=== PATIENT | male | born 1955 | race Caucasian/White ===

== ENCOUNTER 2023-11-19 13:00 | Outpatient (AMB) | payer BC, SELFPAY ==
[2023-11-19 13:22] VITALS: PULSE 89; O2SAT 87; BMI 55.6
--- NOTE | 2023-11-19 13:22 | MHC.OFFVIS ---
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 The patient is a 68-year-old gentleman with a known history of COPD, chronic respiratory failure on oxygen between 3-6 L via nasal cannula, obstructive sleep apnea, morbid obesity in atrial fibrillation on anticoagulation. The patient is here for evaluation of worsening dyspnea symptoms. He complains of shortness of breath even with minimal activity. The oxygen has been helpful. He is inhalers include Ventolin. He was offered maintenance inhalers in the past but he opted not using them because of the concerns of adverse effects. We did review his PFTs that he had back in 09/2022. It appears that he has a moderate to severe obstructive process. He also did have a trend response to bronchodilators. Therefore, explained to the patient that maintenance inhalers will provide him with some relief. We can try a long-acting combination bronchodilator without a steroid to minimize his concerns. In addition to that based on the significant dyspnea symptoms we did discuss pulmonary rehabilitation. The patient is open to starting pulmonary rehab but ideally at [facility] because that is where he is from. The patient also had a chest x-ray done back in 09/2022 which was personally by me. It appears that he had a very pronounced bilateral hilum suggesting dilation of the pulmonary vessels. This is suspicious for pulmonary hypertension. He did have an echocardiogram about a year ago per the patient but this was done at [facility] and we do not have that result. We did evaluate a CTA from 2016 demonstrating indeed dilation of the pulmonary trunk suggesting pulmonary hypertension. Explained to the patient that likely his pulmonary hypertension is based on a WHO group 2 and 3 based on his cardiac and pulmonary disease. The patient did have a CTA back in 2015 that was negative for any thromboembolic disease and yet still had the evidence of the pulmonary hypertension. He does use CPAP at nighttime. The CPAP therapy has been affecting beneficial and he does use it for more than 4 hours a night. He does sometimes use his nasal cannula along with the CPAP for additional relief. He does get oxygen through [facility]. He has requesting a filling station. He is also wondering about a portable oxygen concentrator. During the visit we did do 6 minute walk test. The patient is limited due to his heart rate in his shortness of breath. Still he needed 4 L of oxygen with activity to maintain a pulse ox above 90%. Therefore, the patient does not qualify for portable oxygen concentrator he is aware of this. In addition, I am not sure if a filling station is able to be provided for that degree of oxygen requirement. But, we can ask. The patient will on-call for blood work today including a venous gas to see what his CO2 is. With chronic respiratory failure and COPD, if the CO2 is elevated he carries a poor prognosis and high risk for hospitalization. If his CO2 is elevated then we will see about a noninvasive ventilator to improve his prognosis, decrease hospitalizations and also improve his gas exchange. [facility] Medical History (Updated 11/19/23 @ 19:39 by Dio Orantes MD) Pulmonary hypertension PARRIS (obstructive sleep apnea) Chronic respiratory failure COPD (chronic obstructive pulmonary disease) Allergy Social History (Updated 11/19/23 @ 13:29 by TERENCE Ojeda) Patient Tobacco Use Status: Former Tobacco user Tobacco use type: Cigarette Review of Systems Const Denies fever(s) Eyes Reports no additional complaints ENT Reports nasal congestion Card Denies chest pain, Reports dyspnea and Reports dyspnea on exertion Resp Reports cough, Reports dyspnea, Reports dyspnea on exertion and Denies wheezing GI Reports no additional complaints Musc Reports abnormal gait and Reports myalgias Skin/Breast Denies rash Neuro Reports abnormal gait Cesario/Lymph Denies lymphadenopathy Aller/Immun Denies wheezing Physical Exam Vital Signs: Last Vital Signs Pulse 89 11/19/23 13:22 Pulse Ox 87 L 11/19/23 13:22 Oxygen Delivery Method Room Air 11/19/23 13:22 BMI result Body Mass Index 55.6 Const General: comfortable Nutritional Appearance: obese HEENT Head: Yes normocephalic Neck Neck: Yes supple Chest Chest palpation & inspection: normal inspection of the chest Resp Effort & Inspection: normal respiratory effort Auscultation: diminished lung sounds Cardio Heart sounds: S1 normal heart sound present and S2 normal heart sound present GI Palpation (GI): Soft to palpation Skin General skin exam: no rashes or lesions noted Extrem General: No cyanosis Office Procedures 6 Minute Walk Time:: 14:00 SPO2 % at rest: 89 Pulse at rest: 70 SPO2 % during excercise: 86 Pulse during excercise: 158 SPO2 % after excercise: 91 Pulse after excercise: 72 Distance in yards walked: 80 Serina Score: 5 Performance Observations:: Alan walked on level ground without assistance, his SPO2 decreased to 86% within a few steps. Pulsed O2 started on setting 2 then increased to 3 his SPO2 did not recover. Continuous O2 started and 4 lpm maintained his SPO2 at 90-91%. HR to 158 with exertion and with rest his HR recovered to 98 MD tyrone. [id number] - 6 Minute Walk Assessment & Plan Assessment & Plan (1) COPD (chronic obstructive pulmonary disease): Code(s): J44.9 - Chronic obstructive pulmonary disease, unspecified Qualifiers: COPD type: chronic bronchitis Chronic bronchitis type: simple Qualified Code(s): J41.0 - Simple chronic bronchitis (2) Allergy: Code(s): T78.40XA - Allergy, unspecified, initial encounter Qualifiers: Encounter type: initial encounter Qualified Code(s): T78.40XA - Allergy, unspecified, initial encounter (3) Chronic respiratory failure: Code(s): J96.10 - Chronic respiratory failure, unspecified whether with hypoxia or hypercapnia Qualifiers: Respiratory failure complication: hypoxia Qualified Code(s): J96.11 - Chronic respiratory failure with hypoxia (4) PARRIS (obstructive sleep apnea): Code(s): G47.33 - Obstructive sleep apnea (adult) (pediatric) (5) Pulmonary hypertension: Code(s): I27.20 - Pulmonary hypertension, unspecified Plan Start Anoro PAWAN as needed Bloodwork/allergy testing/blood gas start Pulmonary rehab at [place] continue oxygen 2L at rest, 4L with activity continue CPAP with 2L oxygen at night. Consider in lab titration study ?IVAPS diuresis as tolerated requesting last ECHO from [facility] F/U 6-8 weeks Orders: Orders Basic Metabolic Panel Today T78.40XA - Allergy, unspecified, initial encounter Erythrocyte Sedimentation Rate Today T78.40XA - Allergy, unspecified, initial encounter Resp Allergy Profile Region I Today T78.40XA - Allergy, unspecified, initial encounter Venous Blood Gas Today T78.40XA - Allergy, unspecified, initial encounter Complete Blood Count Auto Diff Today T78.40XA - Allergy, unspecified, initial encounter AMB 6 minute walk Today J44.9 - Chronic obstructive pulmonary disease, unspecified Pulmonary Rehab Today J44.9 - Chronic obstructive pulmonary disease, unspecified Medications: New umeclidinium-vilanterol 62.5-25 mcg/actuation (Anoro Ellipta) 1 inh inhalation DAILY 60 ea 11RF J44.89 - Other specified chronic obstructive pulmonary disease Coding Level of Care Code New Pt Level 5 (34439) Diagnoses Simple chronic bronchitis J41.0 COPD type: chronic bronchitis Chronic bronchitis type: simple Allergy, initial encounter T78.40XA Encounter type: initial encounter Chronic respiratory failure with hypoxia J96.11 Respiratory failure complication: hypoxia PARRIS (obstructive sleep apnea) G47.33 Pulmonary hypertension I27.20 CPT Codes Coding ([id number]) Time Spent (min) 60
[2023-11-19 14:23] VITALS: PULSE 70; O2SAT 89
== END 2023-11-19 14:51 | disposition home or self-care (01) ==
PROVIDERS: PCP Family Medicine; Referring Provider Family Medicine; Visit Provider Hospitalist
DX: J41.0 Simple chronic bronchitis (principal); J96.11 Chronic respiratory failure with hypoxia; G47.33 Obstructive sleep apnea (adult) (pediatric); I27.20 Pulmonary hypertension, unspecified
CPT/HCPCS: 94618; 99205

== ENCOUNTER 2023-11-19 13:00 | Outpatient (REF) | payer MEDICARE, SELFPAY ==
[2023-11-19 14:34] LABS: MANUAL DIFF FLAG NO
[2023-11-19 14:46] LABS: VBG Base Excess 4.4 mmol/L; VBG pCO2 47 mmHg; VBG pO2 35 mmHg
[2023-11-19 14:47] LABS: VBG HCO3 30 mmol/L (22-26); Venous Blood Gas Refer to POC result
[2023-11-19 14:51] LABS: Basophils Percent Auto 0.5 % (0-2); Eosinophils Absolute Auto 0.1 X10*3/uL (0.0-0.4); Hematocrit 44.5 % (42.0-52.0); Hemoglobin 14.6 g/dl (14.0-18.0); Imm Gran Abs Auto 0.02 X10*3/uL (0.00-0.03); Imm Gran Pct Auto 0.2 % (0.0-0.4); Lymphocytes Percent Auto 11.9 % (20-40); Mean Corpuscular HGB Conc 32.8 g/dl (31.0-36.0); Mean Corpuscular Hemoglobin 31.5 pg (27.0-33.0); Mean Corpuscular Volume 95.9 fL (80.0-98.0); Mean Platelet Volume 9.3 fL (9.4-12.4); Monocytes Absolute Auto 0.5 X10*3/uL (0.1-1.2); Monocytes Percent Auto 6.4 % (2-11); Neutrophils Absolute Auto 6.5 x10*3/uL (2.0-8.3); Platelet Count 214 X10*3/uL (160-400); Red Blood Count 4.64 X10*6/uL (4.60-5.80); Red Cell Distribution Width 13.3 % (11.0-16.0); White Blood Count 8.1 X10*3/uL (4.8-10.8)
[2023-11-19 14:52] LABS: Anion Gap 13 (12-20); Blood Urea Nitrogen 24 mg/dL (9-16); Calcium 9.8 mg/dL (8.4-10.2); Carbon Dioxide 30 mmol/L (22-29); Chloride 102 mmol/L (96-108); Estimated Glomerular Filt Rate 57; Glucose Random 95 mg/dL (60-115); Potassium 4.6 mmol/L (3.3-5.1); Sodium 140 mmol/L (135-145)
[2023-11-19 15:32] LABS: Erythrocyte Sedimentation Rate 16 MM/HR (0-15)
== END 2023-11-19 13:01 | disposition home or self-care (01) ==
LOC: HO.LAB 13:00
PROVIDERS: PCP Family Medicine; Referring Provider Family Medicine; Visit Provider Hospitalist
DX: J41.0 Simple chronic bronchitis (principal); J96.11 Chronic respiratory failure with hypoxia; T78.40XA Allergy, unspecified, initial encounter; G47.33 Obstructive sleep apnea (adult) (pediatric); I27.20 Pulmonary hypertension, unspecified
CPT/HCPCS: 36415; 80048; 82803; 85025; 85652; 94618; 99202

== ENCOUNTER 2024-02-26 08:39 | Outpatient (AMB) | payer MEDICARE, SELFPAY ==
[2024-02-26 08:51] VITALS: PULSE 64; O2SAT 90; BMI 55.7
--- NOTE | 2024-02-26 08:51 | A.OFFVIS_ITS ---
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 The patient is here for evaluation of worsening dyspnea symptoms. He complains of shortness of breath even with minimal activity. The oxygen has been helpful. He is inhalers include Ventolin. He was offered maintenance inhalers in the past but he opted not using them because of the concerns of adverse effects. We did review his PFTs that he had back in 09/2022. It appears that he has a moderate to severe obstructive process. He also did have a trend response to bronchodilators. Th erefore, explained to the patient that maintenance inhalers will provide him with some relief. We can try a long-acting combination bronchodilator without a steroid to minimize his concerns. In addition to that based on the significant dyspnea symptoms we did discuss pulmonary rehabilitation. The patient is open to starting pulmonary rehab but ideally at [facility] because that is where he is from. The patient also had a chest x-ray done back in 09/2022 which was personally by me. It appears that he had a very pronounced bilateral hilum suggesting dilation of the pulmonary vessels. This is suspicious for pulmonary hypertension. He did have an echocardiogram about a year ago per the patient but this was done at [facility] and we do not have that result. We did evaluate a CTA from 2016 demonstrating indeed dilation of the pulmonary trunk suggesting pulmonary hypertension. Explained to the patient that likely his pulmonary hypertension is based on a WHO group 2 and 3 based on his cardiac and pulmonary disease. The patient did have a CTA back in 2015 that was negative for any thromboembolic disease and yet still had the evidence of the pulmonary hypertension. He does use CPAP at nighttime. The CPAP therapy has been affecting beneficial and he does use it for more than 4 hours a night. He does sometimes use his nasal cannula along with the CPAP for additional relief. He does get oxygen through [facility]. He has requesting a filling station. He is also wondering about a portable oxygen concentrator. During the visit we did do 6 minute walk test. The patient is limited due to his heart rate in his shortness of breath. Still he needed 4 L of oxygen with activity to maintain a pulse ox above 90%. Therefore, the patient does not qualify for portable oxygen concentrator he is aware of this. In addition, I am not sure if a filling station is able to be provided for that degree of oxygen requirement. But, we can ask. The patient will on-call for blood work today including a venous gas to see what his CO2 is. With chronic respiratory failure and COPD, if the CO2 is elevated he carries a poor prognosis and high risk for hospitalization. If his CO2 is elevated then we will see about a noninvasive ventilator to improve his prognosis, decrease hospitalizations and also improve his gas exchange. 02/26/2024 the patient is here for a pulmonary follow-up visit. Since we last spoke he is developing worsening shortness of breath and oxygen requirements. He has been at the pulmonary rehabilitation and they have documented that he is more hypoxic and recommended he had a repeat 6 minute walk test. Typically he requires 4 L with activity although he has been going up to 6 L. this is been getting worse for last couple days. He is having hard time doing any activity even at rest. He has been using his respiratory therapy with minimal response. He also is taking diuretics. The patient continues uses CPAP at nighttime. The CPAP therapy has been affecting beneficial. We did check a blood gas during the last visit and had a slight elevation in his CO2 47 mmHg. The patient still waiting for his sleep study. We did requested. Still waiting for insurance authorization. During the visit we did taken for 6 minute walk test. Again, the patient was placed on 4 L at rest maintaining a 90% but then with ambulation he required the maximum 8 L and still desaturating very quickly to 87%. He was also visibly dyspneic with a dyspnea score of 7/10. Denies any chest pain at this time. In view of the worsening hypoxia I did recommend he go to the ER. We did send to the ER for further care. [facility] Medical History (Updated 11/19/23 @ 19:39 by Dio Orantes MD) Pulmonary hypertension PARRIS (obstructive sleep apnea) Chronic respiratory failure COPD (chronic obstructive pulmonary disease) Allergy Social History (Updated 11/19/23 @ 13:29 by TERENCE Ojeda) Patient Tobacco Use Status: Former Tobacco user Tobacco use type: Cigarette Advance Directives: Yes Advance Directives on File: Yes Advance Directives Date on File: 02/26/24 Do you have a plan to hurt others: No Plan Review of Systems Const Denies fever(s) Eyes Reports no additional complaints ENT Reports nasal congestion Card Denies chest pain, Reports leg edema, Reports dyspnea and Reports dyspnea on exertion Resp Reports cough, Reports dyspnea, Reports dyspnea on exertion and Denies wheezing GI Reports no additional complaints Musc Reports abnormal gait and Reports myalgias Skin/Breast Denies rash Neuro Reports abnormal gait Cesario/Lymph Denies lymphadenopathy Aller/Immun Denies wheezing Physical Exam Vital Signs: Last Vital Signs Pulse 64 02/26/24 08:51 Pulse Ox 90 L 02/26/24 08:51 Oxygen Delivery Method Room Air 02/26/24 08:51 BMI result Body Mass Index 55.7 Const General: comfortable Nutritional Appearance: obese HEENT Head: Yes normocephalic Neck Neck: Yes supple Chest Chest palpation & inspection: normal inspection of the chest Resp Effort & Inspection: normal respiratory effort Auscultation: diminished lung sounds Cardio Heart sounds: S1 normal heart sound present and S2 normal heart sound present GI Palpation (GI): Soft to palpation Skin General skin exam: no rashes or lesions noted Extrem General: No cyanosis Office Procedures 6 Minute Walk Time:: 15:04 SPO2 % at rest: 85 Pulse at rest: 101 Supplemental Oxygen: The patient was hypoxic on room air placed on 4 L improving his pulse ox to 92%, he was then ambulated and we had to increase his oxygenation up to 8 L improving his pulse ox to only 88%. Will request a [employer]izer pendant [id number] - 6 Minute Walk Assessment & Plan Assessment & Plan (1) COPD (chronic obstructive pulmonary disease): Code(s): J44.9 - Chronic obstructive pulmonary disease, unspecified Category: Medical Qualifiers: COPD type: chronic bronchitis Chronic bronchitis type: simple Qualified Code(s): J41.0 - Simple chronic bronchitis (2) Allergy: Code(s): T78.40XA - Allergy, unspecified, initial encounter Category: Medical Qualifiers: Encounter type: initial encounter Qualified Code(s): T78.40XA - Allergy, unspecified, initial encounter (3) Chronic respiratory failure: Code(s): J96.10 - Chronic respiratory failure, unspecified whether with hypoxia or hypercapnia Category: Medical Qualifiers: Respiratory failure complication: hypoxia Qualified Code(s): J96.11 - Chronic respiratory failure with hypoxia (4) PARRIS (obstructive sleep apnea): Code(s): G47.33 - Obstructive sleep apnea (adult) (pediatric) Category: Medical (5) Pulmonary hypertension: Code(s): I27.20 - Pulmonary hypertension, unspecified Category: Medical Plan Will send to the ED for worsening hypoxia continue Anoro PAWAN as needed Pulmonary rehab at [place] Increase oxygen 4L at rest, 8L with activity, request humidification and an oximizer pendant to use outside of the home continue CPAP with 2L oxygen at night. Requested in lab titration study ?IVAPS diuresis as tolerated F/U 8 weeks Coding Level of Care Code Est Pt Level 5 (51648) Diagnoses Simple chronic bronchitis J41.0 COPD type: chronic bronchitis Chronic bronchitis type: simple Allergy, initial encounter T78.40XA Encounter type: initial encounter Chronic respiratory failure with hypoxia J96.11 Respiratory failure complication: hypoxia PARRIS (obstructive sleep apnea) G47.33 Pulmonary hypertension I27.20 CPT Codes Coding ([id number]) Time Spent (min) 45
[2024-02-26 15:06] VITALS: PULSE 101; O2SAT 85
== END 2024-02-26 10:01 | disposition home or self-care (01) ==
PROVIDERS: PCP Family Medicine; Visit Provider Hospitalist
DX: J41.0 Simple chronic bronchitis (principal); T78.40XA Allergy, unspecified, initial encounter; J96.11 Chronic respiratory failure with hypoxia; G47.33 Obstructive sleep apnea (adult) (pediatric); I27.20 Pulmonary hypertension, unspecified
CPT/HCPCS: 94618; 99215

== ENCOUNTER → 2024-02-26 08:39 | Outpatient (BNVA) | payer MEDICARE, SELFPAY | PROVIDERS: PCP Family Medicine; Visit Provider Hospitalist ==

== ENCOUNTER 2024-02-26 09:43 | Emergency (ER) | payer MEDICARE, SELFPAY ==
--- NOTE | ~2024-02-26 | XR_ITS ---
EXAMINATION: XR CHEST CLINICAL INFORMATION: Low oxygen level COMPARISON: None available. TECHNIQUE: Frontal view of the chest was obtained. FINDINGS: Exam partially limited as the costophrenic angles are outside the [id number] exam. Slightly prominent interstitial markings which could reflect normal variation or minimal edema. The cardiomediastinal silhouette are normal. Degenerative changes of the left glenohumeral joint and left acromioclavicular joint XR/XR chest 1V IMPRESSION: 1. Slightly prominent interstitial markings which could reflect normal variation or minimal edema. 2. Exam partially limited as above.
[2024-02-26 09:54] VITALS: BP 115/78; PULSE 66; RESP 20; TEMP 36.4; O2SAT 91; BMI 57.4
--- NOTE | 2024-02-26 10:14 | ECG_ITS ---
Test Reason : SOB Blood Pressure : / mmHG Vent. Rate : 070 BPM Atrial Rate : 000 BPM P-R Int : 000 ms QRS Dur : 104 ms QT Int : 456 ms P-R-T Axes : 000 046 047 degrees QTc Int : 492 ms Atrial fibrillation Septal infarct , age undetermined Abnormal ECG No previous ECGs available Referred By: Generic ED Physician Electronically Signed By:LAURYN DUGAN
--- NOTE | 2024-02-26 10:21 | ED.GENADULT ---
HPI - General Adult General Chief complaint: General Medical Stated complaint: Needs Oxygen Time Seen by Provider: 02/26/24 10:21 Source: patient and other (Dr. Orantes) Mode of arrival: wheelchair Limitations: no limitations History of Present Illness HPI narrative: Patient is a 68-year-old male with history of chronic respiratory failure, COPD, pulmonary hypertension, PARRIS on CPAP, afib on Eliquis presenting to the emergency department from Dr. Orantes's office with complaint of increasing dyspnea on exertion for the past several weeks. States that he typically wears oxygen via nasal cannula at 3-4 liters/minute while at rest at baseline and increases this with exertion. Reports that he has increased his oxygen to maximum amount at home and still becomes dyspneic with exertion and lightheaded. Dr. Orantes reported that while in office, patient became hypoxic to 87% on 8 liters/minute with just a few steps. Related Data Home Medications ?Medication ?Instructions ?Recorded ?Confirmed CPAP (CPAP Machine/Device) 11/19/23 Oxygen Home Use 11/19/23 albuterol sulfate 90 mcg/actuation inhalation 11/19/23 aerosol inhaler allopurinol 100 mg tablet 100 mg PO DAILY 11/19/23 apixaban 5 mg tablet (Eliquis) 5 mg PO BID 11/19/23 atorvastatin 40 mg tablet 40 mg PO DAILY 11/19/23 bupropion HCl 200 mg tablet,12 hr 200 mg PO BID 11/19/23 sustained-release buspirone 30 mg tablet 30 mg PO BID 11/19/23 chlorthalidone 25 mg tablet 25 mg PO DAILY 11/19/23 cholecalciferol (vitamin D3) 25 25 mcg PO DAILY 11/19/23 mcg (1,000 unit) capsule coenzyme Q10 100 mg tablet 200 mg PO DAILY 11/19/23 diltiazem HCl 120 mg 120 mg PO DAILY 11/19/23 capsule,extended release 24 hr, controlled (DILT-XR) fluoxetine 20 mg capsule 40 mg PO QAM 11/19/23 multivitamin 1 tab PO DAILY 11/19/23 olmesartan 40 mg tablet 40 mg PO DAILY 11/19/23 Previous Rx's ?Medication ?Instructions ?Recorded umeclidinium 62.5 mcg-vilanterol 1 inh inhalation DAILY #60 ea 11/19/23 25 mcg/actuation powdr for inhalation (Anoro Ellipta) Allergies Allergy/AdvReac Type Severity Reaction Status Date / Time codeine AdvReac Severe Dizziness Verified 02/26/24 09:57 poison bashir extract AdvReac Severe Nausea Verified 02/26/24 09:57 [facility] Past Medical History Medical History (Updated 02/26/24 @ 15:11 by Janis Sarah NP) Pulmonary hypertension PARRIS (obstructive sleep apnea) Chronic respiratory failure COPD (chronic obstructive pulmonary disease) Allergy Social History Social History (Updated 11/19/23 @ 13:29 by TERENCE Ojeda) Patient Tobacco Use Status: Former Tobacco user Tobacco use type: Cigarette Advance Directives: Yes Advance Directives on File: Yes Advance Directives Date on File: 02/26/24 Do you have a plan to hurt others: No Plan Physical Exam ED Vital Signs: Vital Signs - 24 hr 02/26/24 09:54 02/26/24 11:40 02/26/24 13:39 Temperature 97.6 F 98.1 F 97.9 F Pulse Rate 66 76 64 Respiratory Rate 20 16 16 Blood Pressure 115/78 142/104 H 141/87 H Pulse Oximetry 91 L 90 L Oxygen Delivery Method Nasal Cannula Nasal Cannula Room Air Oxygen Flow Rate 5 BMI result Body Mass Index 57.4 Medical Decision Making Medical Decision Making MDM Narrative: Patient is a 68-year-old male with history of chronic respiratory failure, COPD, pulmonary hypertension, PARRIS on CPAP, afib on Eliquis presenting to the emergency department from Dr. Orantes's office with complaint of increasing dyspnea on exertion for the past several weeks. On exam patient is awake, A+Ox3, chronic hypoxia, VS WNL, afebrile, normal neurological exam without focal deficits, physical exam findings as above. Given reported symptoms and physical exam findings, initial differential includes COPD exacerbation, viral illness, pneumonia, acute on chronic respiratory failure. Less likely PE as patient is anticoagulated but will obtain d-dimer. Labs notable for no leukocytosis, slight anemia, chronically elevated BUN, mildly elevated BNP, mildly elevated troponin, no delta on repeat. X-ray chest notable for slightly prominent interstitial markings which could reflect minimal edema. My interpretation is in agreement with the radiologist's interpretation. Spoke with Dr. Orantes regarding results. He recommends one dose of IV lasix prior to discharge, then he will request a higher level concentrator from [facility] for patient's home O2. Patient updated on plan and all questions answered, patient is agreeable with plan. Return precautions discussed at bedside. Differential Diagnosis Differential Diagnoses: The differential diagnosis associated with the presentation includes As per [facility]. Admission/Observation Consideration of admission/observation: Escalation of care including admission/observation considered Patient would have been admitted to the hospital had their work up had any findings where hospital admission was appropriate and their clinical presentation warranted hospital admission. Consult Healthcare Provider Management of the patient was discussed with: Primary Care Provider (Dr. Orantes) Lab Data [facility] Lab Attestation statement: I reviewed the patient's lab results. As per [facility] 02/26/24 10:38 02/26/24 10:38 Labs: Lab Results 02/26/24 02/26/24 02/26/24 Range/Units 08:30 10:38 10:40 WBC 8.9 (4.8-10.8) X10*3/uL RBC 3.91 L (4.60-5.80) X10*6/uL Hgb 12.7 L (14.0-18.0) g/dl Hct 37.3 L (42.0-52.0) % MCV 95.4 (80.0-98.0) fL MCH 32.5 (27.0-33.0) pg MCHC 34.0 (31.0-36.0) g/dl RDW 13.5 (11.0-16.0) % Plt Count 197 (160-400) X10*3/uL MPV 9.0 L (9.4-12.4) fL Immature Gran % (Auto) 0.6 H (0.0-0.4) % Neut % (Auto) 85.1 H (45-73) % Lymph % (Auto) 7.2 L (20-40) % [place] % (Auto) 6.2 (2-11) % Eos % (Auto) 0.6 (0-4) % Baso % (Auto) 0.3 (0-2) % Lymph # (Auto) 0.6 L (1.2-4.9) X10*3/uL [place] # (Auto) 0.6 (0.1-1.2) X10*3/uL Eos # (Auto) 0.1 (0.0-0.4) X10*3/uL Baso # (Auto) 0.0 (0.0-0.2) X10*3/uL Abs Immat Gran (auto) 0.05 H (0.00-0.03) X10*3/uL Absolute Neuts (auto) 7.6 (2.0-8.3) x10*3/uL Absolute Nucleated RBC 0.000 (0.0-0.012) X10*3/uL Nucleated RBC % (auto) 0.0 (0.0-0.2) /100WBC D-Dimer High Sensitivty NG/ML VBG pH 7.40 (7.32-7.43) VBG pCO2 41 mmHg VBG pO2 67 mmHg VBG HCO3 26 (22-26) mmol/L VBG O2 Saturation 92.0 % VBG Base Excess 1.1 mmol/L Sodium 137 (135-145) mmol/L Potassium 4.2 (3.3-5.1) mmol/L Chloride 104 (96-108) mmol/L Carbon Dioxide 24 (22-29) mmol/L Anion Gap 13 (12-20) BUN 29 H (9-16) mg/dL Creatinine 1.18 (0.5-1.4) mg/dL Estim Creat Clear Calc 84.3 Estimated GFR > 60 Random Glucose 101 (60-115) mg/dL Calcium 9.7 (8.4-10.2) mg/dL Total Bilirubin 0.6 (0.0-1.0) mg/dL Direct Bilirubin 0.3 (0.0-0.5) mg/dL AST 21 (5-37) U/L ALT 36 (0-40) U/L Alkaline Phosphatase 78 (39-117) U/L Troponin I High Sens 17.8 (<3.5-35.0) ng/L B-Natriuretic Peptide 251 H (<100) pg/mL Total Protein 7.0 (6.5-8.0) g/dL Albumin 3.9 (3.5-5.0) g/dL Lipase 21 (8-78) U/L Total PSA Cancelled Influenza Type A (PCR) (Negative) Influenza Type B (PCR) (Negative) RSV RNA Qual (PCR) (Negative) SARS-CoV-2 RNA (RT-PCR) (Negative) 04/30/24 04/30/24 Range/Units 10:52 13:56 WBC (4.8-10.8) X10*3/uL RBC (4.60-5.80) X10*6/uL Hgb (14.0-18.0) g/dl Hct (42.0-52.0) % MCV (80.0-98.0) fL MCH (27.0-33.0) pg MCHC (31.0-36.0) g/dl RDW (11.0-16.0) % Plt Count (160-400) X10*3/uL MPV (9.4-12.4) fL Immature Gran % (Auto) (0.0-0.4) % Neut % (Auto) (45-73) % Lymph % (Auto) (20-40) % [place] % (Auto) (2-11) % Eos % (Auto) (0-4) % Baso % (Auto) (0-2) % Lymph # (Auto) (1.2-4.9) X10*3/uL [place] # (Auto) (0.1-1.2) X10*3/uL Eos # (Auto) (0.0-0.4) X10*3/uL Baso # (Auto) (0.0-0.2) X10*3/uL Abs Immat Gran (auto) (0.00-0.03) X10*3/uL Absolute Neuts (auto) (2.0-8.3) x10*3/uL Absolute Nucleated RBC (0.0-0.012) X10*3/uL Nucleated RBC % (auto) (0.0-0.2) /100WBC D-Dimer High Sensitivty 261 NG/ML VBG pH (7.32-7.43) VBG pCO2 mmHg VBG pO2 mmHg VBG HCO3 (22-26) mmol/L VBG O2 Saturation % VBG Base Excess mmol/L Sodium (135-145) mmol/L Potassium (3.3-5.1) mmol/L Chloride (96-108) mmol/L Carbon Dioxide (22-29) mmol/L Anion Gap (12-20) BUN (9-16) mg/dL Creatinine (0.5-1.4) mg/dL Estim Creat Clear Calc Estimated GFR Random Glucose (60-115) mg/dL Calcium (8.4-10.2) mg/dL Total Bilirubin (0.0-1.0) mg/dL Direct Bilirubin (0.0-0.5) mg/dL AST (5-37) U/L ALT (0-40) U/L Alkaline Phosphatase (39-117) U/L Troponin I High Sens 17.3 (<3.5-35.0) ng/L B-Natriuretic Peptide (<100) pg/mL Total Protein (6.5-8.0) g/dL Albumin (3.5-5.0) g/dL Lipase (8-78) U/L Total PSA Influenza Type A (PCR) NEGATIVE (Negative) Influenza Type B (PCR) NEGATIVE (Negative) RSV RNA Qual (PCR) NEGATIVE (Negative) SARS-CoV-2 RNA (RT-PCR) NEGATIVE (Negative) Independent Interpretation I performed an independent interpretation of an: Plain X-Ray Interpretation: Minimal edema on CXR Radiology Impression Discussion of test interpretation with radiology: I have reviewed the radiologist's reading. Radiologist Impression: XR/XR chest 1V IMPRESSION: 1. Slightly prominent interstitial markings which could reflect normal variation or minimal edema. 2. Exam partially limited as above. External Record Review External record reviewed: Inpatient record, Office record, Outpatient record and Primary care record Discharge Plan Discharge Clinical Impression: Chronic respiratory failure Qualifiers: Respiratory failure complication: hypoxia Qualified Code(s): J96.11 - Chronic respiratory failure with hypoxia Patient Disposition: Home, Self-Care Instructions: Chronic Respiratory Failure (DC) Additional Instructions: You were evaluated in the emergency department today for shortness of breath. Your evaluation did not show evidence of any acute conditions requiring emergent medical treatment at this time. Your results were discussed with your fence erector, Dr. Orantes. You were given 1 dose of IV furosemide in the emergency department today. Dr. Orantes will work on obtaining a higher level concentrater from [facility] for your oxygen. Please call his office to schedule follow-up appointment. Return to the emergency department if you develop increasing shortness of breath, chest pain, palpitations, fever or any other concerning symptoms. Prescriptions: No Action albuterol sulfate 90 mcg/actuation HFA aerosol inhaler inhalation allopurinol 100 mg tablet 100 mg PO DAILY atorvastatin 40 mg tablet 40 mg PO DAILY bupropion HCl 200 mg tablet sustained-release 12 hr 200 mg PO BID buspirone 30 mg tablet 30 mg PO BID chlorthalidone 25 mg tablet 25 mg PO DAILY diltiazem HCl [DILT-XR] 120 mg capsule,ext.rel 24h degradable 120 mg PO DAILY Eliquis 5 mg tablet 5 mg PO BID fluoxetine 20 mg capsule 40 mg PO QAM olmesartan 40 mg tablet 40 mg PO DAILY cholecalciferol (vitamin D3) 25 mcg (1,000 unit) capsule 25 mcg PO DAILY multivitamin Tablet 1 tab PO DAILY coenzyme Q10 100 mg tablet 200 mg PO DAILY (DME) CPAP Machine/Device Device See Rx Instructions .ROUTE Rx Instructions: As directed (DME) Oxygen Home Use Kit See Rx Instructions .ROUTE Rx Instructions: As directed Anoro Ellipta 62.5-25 mcg/actuation blister with device 1 inh inhalation DAILY Qty: 60 11RF Referrals: Dio Orantes MD [Physician] - Print Language: Icelandic
[2024-02-26 10:44] LABS: MANUAL DIFF FLAG NO
[2024-02-26 10:45] LABS: Venous Blood Gas Refer to POC result
[2024-02-26 10:47] LABS: Basophils Percent Auto 0.3 % (0-2); Eosinophils Absolute Auto 0.1 X10*3/uL (0.0-0.4); Eosinophils Percent Auto 0.6 % (0-4); Hematocrit 37.3 % (42.0-52.0); Hemoglobin 12.7 g/dl (14.0-18.0); Imm Gran Abs Auto 0.05 X10*3/uL (0.00-0.03); Imm Gran Pct Auto 0.6 % (0.0-0.4); Lymphocytes Absolute Auto 0.6 X10*3/uL (1.2-4.9); Lymphocytes Percent Auto 7.2 % (20-40); Mean Corpuscular Hemoglobin 32.5 pg (27.0-33.0); Mean Corpuscular Volume 95.4 fL (80.0-98.0); Monocytes Absolute Auto 0.6 X10*3/uL (0.1-1.2); Monocytes Percent Auto 6.2 % (2-11); Neutrophils Absolute Auto 7.6 x10*3/uL (2.0-8.3); Neutrophils Percent Auto 85.1 % (45-73); Platelet Count 197 X10*3/uL (160-400); Red Blood Count 3.91 X10*6/uL (4.60-5.80); Red Cell Distribution Width 13.5 % (11.0-16.0); White Blood Count 8.9 X10*3/uL (4.8-10.8)
[2024-02-26 10:48] LABS: VBG Base Excess 1.1 mmol/L; VBG HCO3 26 mmol/L (22-26); VBG pCO2 41 mmHg; VBG pO2 67 mmHg
[2024-02-26 11:05] LABS: Alanine Aminotransferase 36 U/L (0-40); Albumin Level 3.9 g/dL (3.5-5.0); Alkaline Phosphatase 78 U/L (39-117); Anion Gap 13 (12-20); Aspartate Amino Transferase 21 U/L (5-37); Bilirubin Direct 0.3 mg/dL (0.0-0.5); Bilirubin Total 0.6 mg/dL (0.0-1.0); Blood Urea Nitrogen 29 mg/dL (9-16); Calcium 9.7 mg/dL (8.4-10.2); Carbon Dioxide 24 mmol/L (22-29); Chloride 104 mmol/L (96-108); Creatinine Clr Calc Pharmacy 84.3; Estimated Glomerular Filt Rate > 60; Glucose Random 101 mg/dL (60-115); Lipase 21 U/L (8-78); Potassium 4.2 mmol/L (3.3-5.1); Sodium 137 mmol/L (135-145)
[2024-02-26 11:08] LABS: D Dimer High Sensitivity 261 NG/ML
[2024-02-26 11:09] LABS: Troponin-I High Sensitivity 17.8 ng/L (<3.5-35.0)
[2024-02-26 11:36] LABS: Influenza A PCR NEGATIVE (Negative); Influenza B PCR NEGATIVE (Negative); Resp Syncy Virus RNA Qual PCR NEGATIVE (Negative); SARS COV2 PCR INHOUSE NEGATIVE (Negative)
[2024-02-26 11:40] VITALS: BP 142/104; PULSE 76; RESP 16; TEMP 36.7
--- NOTE | 2024-02-26 13:24 | PC.NURSE ---
patient ambulated to bathroom with steady gait
[2024-02-26 13:39] VITALS: BP 141/87; PULSE 64; RESP 16; TEMP 36.6; O2SAT 90
[2024-02-26 13:51] LABS: B Type Natriuretic Peptide 251 pg/mL (<100)
--- NOTE | 2024-02-26 14:28 | MHC.CM.ED ---
Received notification from Francy of registration that patient is interested in completing a HCP. Met with patient. HCP completed, signed and witnessed. Original given to patient. Copy placed in chart.
[2024-02-26 14:34] LABS: Troponin-I High Sensitivity 17.3 ng/L (<3.5-35.0)
[2024-02-26 15:50] VITALS: BP 143/97; PULSE 69; RESP 20
[2024-02-26] MEDS: Furosemide 20 MG/2 ML VIAL IVPUSH (15:50)
== END 2024-02-26 15:58 | disposition home or self-care (01) ==
PROVIDERS: Physician Assistant; Registered Nurse Emergency; Emergency Provider Emergency Medicine; PCP Family Medicine
DX: J96.11 Chronic respiratory failure with hypoxia (principal); J41.0 Simple chronic bronchitis; I48.91 Unspecified atrial fibrillation; I27.20 Pulmonary hypertension, unspecified; T78.40XA Allergy, unspecified, initial encounter; X58.XXXA Exposure to other specified factors, initial encounter; G47.33 Obstructive sleep apnea (adult) (pediatric); Z79.01 Long term (current) use of anticoagulants; Z79.899 Other long term (current) drug therapy; Z99.89 Dependence on other enabling machines and devices; Z03.818 Encounter for observation for suspected exposure to other biological agents ruled out
CPT/HCPCS: 0241U; 36415; 71045; 80048; 80076; 82803; 83690; 83880; 84153; 84484; 85025; 85379; 93005; 94618; 96374; 99212; 99284; J1940

== ENCOUNTER → 2024-02-26 10:14 | Outpatient (BNV) | payer MEDICARE, SELFPAY | PROVIDERS: Emergency Provider Emergency Medicine; PCP Family Medicine; Visit Provider Internal Medicine | DX: I48.91 Unspecified atrial fibrillation (principal); R94.31 Abnormal electrocardiogram [ECG] [EKG] | CPT/HCPCS: 93010 ==

== ENCOUNTER 2024-03-04 10:40 | Outpatient (AMB) | payer MEDICARE, SELFPAY ==
--- NOTE | 2024-03-04 10:49 | MHC.OFFVIS ---
Vital Signs 03/04/24 10:50 Height 5 ft 5 in Weight 336 lb 8 oz BMI 56.0 BP 110/62 Blood Pressure Location Rt brachial Position Sitting Pulse 61 Pulse Source Pulse Oximeter Pulse Oximetry (%) 88 L Oxygen Delivery Method Nasal Cannula Intake Visit Reasons: ER Follow Up Allergies codeine Adverse Reaction (Severe, Verified 03/04/24 10:57) Dizziness poison bashir extract Adverse Reaction (Severe, Verified 03/04/24 10:57) Nausea HPI HPI ER Follow Up : Details: Alan is a pleasant 68-year-old male, former smoker, with underlying chronic respiratory failure on 3-4 liters of supplemental oxygen, COPD, pulmonary hypertension, PARRIS on CPAP, afib on Eliquis. He is moderately controlled on Anoro and albuterol MDI. He is under the care of Dr. Orantes. Today he presents for an ED follow up. At baseline patient uses supplemental oxygen at 3-4 liters/minute while at rest at baseline and increases this with exertion. While in the pulmonary office on 02/26/24, patient became hypoxic to 87% on 8 liters/minute with just a few steps. He was then evaluated in the ED. No leukocytosis, slight anemia, chronically elevated BUN, mildly elevated BNP, mildly elevated troponin, no delta on repeat. CXR revealed slightly prominent interstitial markings which could be suggestive of edema and was given one dose of IV lasix prior to discharge. He was also being arranged for a higher level concentrator from [facility] for patient's home O2, which he states will be delivered tomorrow. Since discharge he continues to report dyspnea on minimal exertion, however oxygen demand has decreased. He is aware he should be scheduling a close follow up with cardiology. [facility] Medical History (Updated 02/26/24 @ 15:11 by Janis Sarah NP) Pulmonary hypertension PARRIS (obstructive sleep apnea) Chronic respiratory failure COPD (chronic obstructive pulmonary disease) Allergy Social History Patient Tobacco Use Status: Former Tobacco user Tobacco use type: Cigarette Advance Directives Date on File: 02/26/24 Review of Systems Const Denies chills, Denies excessive sweating, Denies fever(s), Denies headache(s) and Denies night sweats Eyes Denies dry eyes, Denies irritation and Denies itchy eyes ENT Reports Normal hearing present, Denies headache(s), Denies nasal congestion, Denies nasal discharge, Denies post nasal drip and Denies sore throat Card Denies chest pain, Denies chest pain at rest, Denies chest pain with activity, Denies claudication, Denies orthopnea and Denies paroxysmal nocturnal dyspnea Resp Denies chest congestion, Denies cough, Denies excessive phlegm production, Denies pain on inspiration, Denies pain with cough and Denies stridor Musc Denies myalgias Neuro Reports Normal hearing present and Denies headache(s) Endo Denies excessive sweating Cesario/Lymph Denies lymphadenopathy Aller/Immun Denies itchy eyes and Denies seasonal rhinorrhea Physical Exam Vital Signs: Last Vital Signs Pulse 61 03/04/24 10:50 BP 110/62 03/04/24 10:50 Pulse Ox 88 L 03/04/24 10:50 Oxygen Delivery Method Nasal Cannula 03/04/24 10:50 BMI result Body Mass Index 56.0 Const General: cooperative, healthy appearing, comfortable, no acute distress, well developed and alert Nutritional Appearance: obese Orientation/consciousness: patient oriented x3 Limitations: no limitations HEENT Head: Yes normal to inspection, Yes normocephalic and Yes atraumatic Ears: hearing grossly normal bilaterally and external ears normal Eyes General: appearance normal, both eyes and all related structures Eyelids: Yes eyelids normal Sclerae: sclerae normal EOM: EOMs intact bilaterally Neck Neck: Yes normal visual inspection and Yes no lymphadenopathy Lymphatic: no lymphadenopathy noted Chest Chest palpation & inspection: normal inspection of the chest Resp Effort & Inspection: normal respiratory effort, able to speak in complete sentences, no audible wheezes, no cough, no stridor, not tachypneic, no tripod positioning and no use of accessory muscles Cardio Jugular venous distension: no JVD Rate: regular rate Rhythm: regular rhythm Skin Other: warm, dry General skin exam: no rashes or lesions noted Neuro General: patient oriented x3 Cranial nerves: Yes Normal hearing present Cognition (Neuro): normal cognition Gait exam (Neuro): Normal gait present Extrem General: Yes normal to inspection, Yes capillary refill normal, Yes no clubbing, cyanosis or edema and Yes no pedal edema Psych Appearance: grossly normal and well kempt Speech and movement: Normal speech and movement present and Clear speech present Affect: normal affect Attitude: cooperative Thought process: Normal thought process present Thought content: Normal thought content present Insight: Good insight present (Psych) Judgement: Good judgement present (Psych) Assessment & Plan Assessment & Plan (1) COPD (chronic obstructive pulmonary disease): Code(s): J44.9 - Chronic obstructive pulmonary disease, unspecified Category: Medical Qualifiers: COPD type: chronic bronchitis Chronic bronchitis type: simple Qualified Code(s): J41.0 - Simple chronic bronchitis (2) Allergy: Code(s): T78.40XA - Allergy, unspecified, initial encounter Category: Medical Qualifiers: Encounter type: initial encounter Qualified Code(s): T78.40XA - Allergy, unspecified, initial encounter (3) Chronic respiratory failure: Code(s): J96.10 - Chronic respiratory failure, unspecified whether with hypoxia or hypercapnia Category: Medical Qualifiers: Respiratory failure complication: hypoxia Qualified Code(s): J96.11 - Chronic respiratory failure with hypoxia (4) PARRIS (obstructive sleep apnea): Code(s): G47.33 - Obstructive sleep apnea (adult) (pediatric) Category: Medical (5) Pulmonary hypertension: Code(s): I27.20 - Pulmonary hypertension, unspecified Category: Medical Plan Discussed with patient that his symptoms are likely multifactorial with contribution from pulmonary, cardiac and deconditioning/obesity etiologies. Respiratory exam unremarkable, patient using 4-5 liters in office with oxygen saturation at 93-95% while resting. He monitors oxygen saturation frequently at home. Advised to continue current regimen. At this time, patient reports back to baseline with oxygen demand. Aware if oxygen demand is increasing to seek emergent care. Discussed a cardiac component and pulmonary hypertension contributing to symptoms. He will arrange an appointment with cardiology. He notes he was previously on p.o. lasix but minimally changed symptoms. We discussed deconditioning/obesity as modifiable factors and he is participating in pulmonary rehab at [place]. All questions were answered and patient is in agreement of plan. He has a follow up scheduled with Dr. Orantes next month. He is aware to call for a sooner appointment if needed. Coding Level of Care Code Est Pt Level 4 ([id number]) Diagnoses Simple chronic bronchitis J41.0 COPD type: chronic bronchitis Chronic bronchitis type: simple Allergy, initial encounter T78.40XA Encounter type: initial encounter Chronic respiratory failure with hypoxia J96.11 Respiratory failure complication: hypoxia PARRIS (obstructive sleep apnea) G47.33 Pulmonary hypertension I27.20
[2024-03-04 10:50] VITALS: BP 110/62; PULSE 61; O2SAT 88; BMI 56.0
== END 2024-03-04 11:44 | disposition home or self-care (01) ==
PROVIDERS: PCP Family Medicine; Visit Provider Nurse Practitioner Family
DX: J41.0 Simple chronic bronchitis (principal); T78.40XA Allergy, unspecified, initial encounter; J96.11 Chronic respiratory failure with hypoxia; G47.33 Obstructive sleep apnea (adult) (pediatric); I27.20 Pulmonary hypertension, unspecified
CPT/HCPCS: 99214

== ENCOUNTER 2024-03-04 12:06 | Outpatient (REF) | payer MEDICARE, SELFPAY ==
[2024-03-06 09:58] LABS: Class Alternaria alternata 0; Class Aspergillus fumigatus 0; Class Bermuda Grass 0; Class Birch 0; Class Cat Dander 0; Class Cladosporium herbarum 0; Class Cockroach 1; Class Common Ragweed 0; Class Cottonwood 0; Class Derm. pterony 1; Class Dermatophagoides farinae 1; Class Dog Dander 0; Class Elm 0; Class Maple Box Elder 0; Class Mountain Cedar 0; Class Mouse Urine Protein 0; Class Mugwort 0; Class Oak 0; Class Penicillium crysogenum 0; Class Rough Pigweed 0; Class Sheep Sorrel 0; Class Sycamore 0; Class Timothy Grass 0; Class Walnut Tree 0; Class White Ash 0; Class White Mulberry 0; D001 IgE D pteronyssinus 0.65 kU/L; D002 - IgE D farinae 0.58 kU/L; E001 - IgE Cat Dander <0.10 kU/L; E005 - IgE Dog Dander <0.10 kU/L; E072-IgE Mouse Urine <0.10 kU/L; G002 IgE Bermuda Grass <0.10 kU/L; G006 - IgE Timothy Grass <0.10 kU/L; Immunoglobulin E 185 kU/L (<OR=114); M001 IgE Penicillium chrysogen <0.10 kU/L; M002 - IgE Cladosporium herbar <0.10 kU/L; M003 - IgE Aspergillus fumigat <0.10 kU/L; M006 - IgE Alternaria alternat <0.10 kU/L; T001 IgE Maple/Box Elder <0.10 kU/L; T003 IgE Common Silver Birch <0.10 kU/L; T006 - IgE Cedar, Mountain <0.10 kU/L; T007 - IgE Oak, White <0.10 kU/L; T008 IgE Elm, American <0.10 kU/L; T010 - IgE Walnut <0.10 kU/L; T011 - IgE Maple Leaf Sycamore <0.10 kU/L; T014 - IgE Cottonwood <0.10 kU/L; T015 - IgE Ash, White <0.10 kU/L; T070 - IgE White Mulberry <0.10 kU/L; W001 - IgE Ragweed, Short <0.10 kU/L; W006 - IgE Mugwort <0.10 kU/L; W014 IgE Pigweed, Common <0.10 kU/L; W018 IgE Sheep Sorrel <0.10 kU/L
== END 2024-03-04 12:07 | disposition home or self-care (01) ==
LOC: HO.WFDLDS 12:06
PROVIDERS: Visit Provider Hospitalist
DX: T78.40XA Allergy, unspecified, initial encounter (principal); J41.0 Simple chronic bronchitis; J96.11 Chronic respiratory failure with hypoxia; I27.20 Pulmonary hypertension, unspecified; G47.33 Obstructive sleep apnea (adult) (pediatric)
CPT/HCPCS: 36415; 82785; 86003; 99212

== ENCOUNTER 2024-04-15 14:03 | Outpatient (AMB) | payer MEDICARE, SELFPAY ==
[2024-04-15 14:17] VITALS: PULSE 71; O2SAT 92; BMI 55.9
--- NOTE | 2024-04-15 14:17 | A.OFFVIS_ITS ---
Vital Signs 04/15/24 14:17 Height 5 ft 5 in Weight 335 lb 12.224 oz BMI 55.9 Pulse 71 Pulse Source Pulse Oximeter Pulse Oximetry (%) 92 Oxygen Delivery Method Room Air Comment 4 Liters Oxygen([facility]) Intake Visit Reasons: COPD Drapery Maker Required: No Allergies codeine Adverse Reaction (Severe, Verified 04/15/24 14:19) Dizziness poison bashir extract Adverse Reaction (Severe, Verified 04/15/24 14:19) Nausea HPI Comments Details: The patient is a 68-year-old gentleman with a known history of COPD, chronic respiratory failure on oxygen between 3-6 L via nasal cannula, obstructive sleep apnea, morbid obesity in atrial fibrillation on anticoagulation. The patient is here for evaluation of worsening dyspnea symptoms. He complains of shortness of breath even with minimal activity. The oxygen has been helpful. He is inhalers include Ventolin. He was offered maintenance inhalers in the past but he opted not using them because of the concerns of adverse effects. We did review his PFTs that he had back in 09/2022. It appears that he has a moderate to severe obstructive process. He also did have a trend response to bronchodilators. Therefore, explained to the patient that maintenance inhalers will provide him with some relief. We can try a long-acting combination bronchodilator without a steroid to minimize his concerns. In addition to that based on the significant dyspnea symptoms we did discuss pulmonary rehabilitation. The patient is open to starting pulmonary rehab but ideally at [facility] because that is where he is from. The patient also had a chest x-ray done back in 09/2022 which was personally by me. It appears that he had a very pronounced bilateral hilum suggesting dilation of the pulmonary vessels. This is suspicious for pulmonary hypertension. He did have an echocardiogram about a year ago per the patient but this was done at [facility] and we do not have that result. We did evaluate a CTA from 2016 demonstrating indeed dilation of the pulmonary trunk suggesting pulmonary hypertension. Explained to the patient that likely his pulmonary hypertension is based on a WHO group 2 and 3 based on his cardiac and pulmonary disease. The patient did have a CTA back in 2015 that was negative for any thromboembolic disease and yet still had the evidence of the pulmonary hypertension. He does use CPAP at nighttime. The CPAP therapy has been affecting beneficial and he does use it for more than 4 hours a night. He does sometimes use his nasal cannula along with the CPAP for additional relief. He does get oxygen through [facility]. He has requesting a filling station. He is also wondering about a portable oxygen concentrator. During the visit we did do 6 minute walk test. The patient is limited due to his heart rate in his shortness of breath. Still he needed 4 L of oxygen with activity to maintain a pulse ox above 90%. Therefore, the patient does not qualify for portable oxygen concentrator he is aware of this. In addition, I am not sure if a filling station is able to be provided for that degree of oxygen requirement. But, we can ask. The patient will on-call for blood work today including a venous gas to see what his CO2 is. With chronic respiratory failure and COPD, if the CO2 is elevated he carries a poor prognosis and high risk for hospitalization. If his CO2 is elevated then we will see about a noninvasive ventilator to improve his prognosis, decrease hospitalizations and also improve his gas exchange. 02/26/2024 the patient is here for a pulmonary follow-up visit. Since we last spoke he is developing worsening shortness of breath and oxygen requirements. He has been at the pulmonary rehabilitation and they have documented that he is more hypoxic and recommended he had a repeat 6 minute walk test. Typically he requires 4 L with activity although he has been going up to 6 L. this is been getting worse for last couple days. He is having hard time doing any activity even at rest. He has been using his respiratory therapy with minimal response. He also is taking diuretics. The patient continues uses CPAP at nighttime. The CPAP therapy has been affecting beneficial. We did check a blood gas during the last visit and had a slight elevation in his CO2 47 mmHg. The patient still waiting for his sleep study. We did requested. Still waiting for insurance authorization. During the visit we did taken for 6 minute walk test. Again, the patient was placed on 4 L at rest maintaining a 90% but then with ambulation he required the maximum 8 L and still desaturating very quickly to 87%. He was also visibly dyspneic with a dyspnea score of 7/10. Denies any chest pain at this time. In view of the worsening hypoxia I did recommend he go to the ER. We did send to the ER for further care. 04/15/2024 the patient is here for a pulmonary follow-up visit. Overall he is doing okay. Seems to doing better with the high-flow concentrator. He has been using 4 L at rest and 6 L with activity. Seems to be effective for him at this time. He did go to the ER during the last visit and he was found to be volume overloaded. He did receive additional IV Lasix. He did not feel like he had significant diuresis. Although his respiratory exam is better. The patient is breathing is also better. The patient also had a blood gas which is reassuring. He continues with CPAP. The CPAP therapy has been affecting beneficial and he has been using the oxygen along with CPAP. Unfortunately has not been getting supplies from the DME company, [employer]. Will request information from [employer] to make sure that he has active with the company. If he has not active he is going to require another sleep study in order to become active specially with significant cardiovascular risk factors. The patient has been using the CPAP every night. Although his mask is old. I did have an N30 I mask small in the office that I did provide him to see this provides him some relief while we made for further information from his DME company. The patient has been participating in the pulmonary rehabilitation. I do believe point for him to continue but once he moves out of his apartment to the new apartment and gets situated restart rehab. A harsh respiratory therapy will continue with current respiratory regimen at this time. He does have systolic ejection murmur. 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 Now sure when his last echocardiogram. REPLACED BY [facility] Medical History (Updated 02/26/24 @ 15:11 by Janis Sarah NP) Pulmonary hypertension PARRIS (obstructive sleep apnea) Chronic respiratory failure COPD (chronic obstructive pulmonary disease) Allergy Social History Patient Tobacco Use Status: Former Tobacco user Tobacco use type: Cigarette Advance Directives Date on File: 02/26/24 Review of Systems Const Denies fever(s) Eyes Reports no additional complaints ENT Reports Normal hearing present and Reports nasal congestion Card Denies chest pain, Reports leg edema, Reports dyspnea and Reports dyspnea on exertion Resp Reports cough, Reports dyspnea, Reports dyspnea on exertion and Denies wheezing GI Reports no additional complaints Musc Reports abnormal gait and Reports myalgias Skin/Breast Denies rash Neuro Reports Normal hearing present and Reports abnormal gait Cesario/Lymph Denies lymphadenopathy Aller/Immun Denies wheezing Physical Exam Vital Signs: Last Vital Signs Pulse 71 04/15/24 14:17 Pulse Ox 92 04/15/24 14:17 Oxygen Delivery Method Room Air 04/15/24 14:17 BMI result Body Mass Index 55.9 Const General: cooperative, healthy appearing, comfortable, no acute distress, well developed and alert Nutritional Appearance: obese Orientation/consciousness: patient oriented x3 Limitations: no limitations HEENT Head: Yes normal to inspection, Yes normocephalic and Yes atraumatic Ears: hearing grossly normal bilaterally and external ears normal Eyes General: appearance normal, both eyes and all related structures Eyelids: Yes eyelids normal Sclerae: sclerae normal EOM: EOMs intact bilaterally Neck Neck: Yes normal visual inspection and Yes no lymphadenopathy Lymphatic: no lymphadenopathy noted Chest Chest palpation & inspection: normal inspection of the chest Resp Effort & Inspection: normal respiratory effort Auscultation: no rhonchi, no wheezes and diminished lung sounds Cardio Jugular venous distension: no JVD Rate: regular rate Rhythm: regular rhythm Heart sounds: Murmur heart sound present Skin Other: warm, dry General skin exam: no rashes or lesions noted Neuro General: patient oriented x3 Cranial nerves: Yes Normal hearing present Cognition (Neuro): normal cognition Gait exam (Neuro): Normal gait present Extrem General: No clubbing, No cyanosis and Yes edema Psych Appearance: grossly normal and well kempt Speech and movement: Normal speech and movement present and Clear speech present Affect: normal affect Attitude: cooperative Thought process: Normal thought process present Thought content: Normal thought content present Insight: Good insight present (Psych) Judgement: Good judgement present (Psych) Assessment & Plan Assessment & Plan (1) COPD (chronic obstructive pulmonary disease): Code(s): J44.9 - Chronic obstructive pulmonary disease, unspecified Category: Medical Qualifiers: COPD type: chronic bronchitis Chronic bronchitis type: simple Qualified Code(s): J41.0 - Simple chronic bronchitis (2) Allergy: Code(s): T78.40XA - Allergy, unspecified, initial encounter Category: Medical Qualifiers: Encounter type: initial encounter Qualified Code(s): T78.40XA - Allergy, unspecified, initial encounter (3) Chronic respiratory failure: Code(s): J96.10 - Chronic respiratory failure, unspecified whether with hypoxia or hypercapnia Category: Medical Qualifiers: Respiratory failure complication: hypoxia Qualified Code(s): J96.11 - Chronic respiratory failure with hypoxia (4) PARRIS (obstructive sleep apnea): Code(s): G47.33 - Obstructive sleep apnea (adult) (pediatric) Category: Medical (5) Pulmonary hypertension: Code(s): I27.20 - Pulmonary hypertension, unspecified Category: Medical Plan continue Anoro PAWAN as needed Pulmonary rehab at [place] oxygen 4L at rest, 6L with activity, consider oximizer pendant to use outside of the home continue CPAP with 2L oxygen at night. Needs supplies. N30i small mask provided. If he is no longer active with the DME, he will need a new in lab sleep study diuresis as tolerated F/U 3-4 months Coding Level of Care Code Est Pt Level 4 (59367) Diagnoses Simple chronic bronchitis J41.0 COPD type: chronic bronchitis Chronic bronchitis type: simple Allergy, initial encounter T78.40XA Encounter type: initial encounter Chronic respiratory failure with hypoxia J96.11 Respiratory failure complication: hypoxia PARRIS (obstructive sleep apnea) G47.33 Pulmonary hypertension I27.20 Time Spent (min) 20
== END 2024-04-15 14:52 | disposition home or self-care (01) ==
PROVIDERS: PCP Family Medicine; Visit Provider Hospitalist
DX: J41.0 Simple chronic bronchitis (principal); T78.40XA Allergy, unspecified, initial encounter; J96.11 Chronic respiratory failure with hypoxia; G47.33 Obstructive sleep apnea (adult) (pediatric); I27.20 Pulmonary hypertension, unspecified
CPT/HCPCS: 99214

== ENCOUNTER → 2024-04-15 14:03 | Outpatient (BNVA) | payer MEDICARE, SELFPAY | PROVIDERS: PCP Family Medicine; Visit Provider Hospitalist | DX: J41.0 Simple chronic bronchitis (principal); T78.40XA Allergy, unspecified, initial encounter; J96.11 Chronic respiratory failure with hypoxia; G47.33 Obstructive sleep apnea (adult) (pediatric); I27.20 Pulmonary hypertension, unspecified; Z79.899 Other long term (current) drug therapy | CPT/HCPCS: 99212 ==

== ENCOUNTER 2024-07-18 14:23 | Outpatient (AMB) | payer MEDICARE, SELFPAY ==
--- NOTE | 2024-07-18 14:25 | A.OFFVIS_ITS ---
Vital Signs 07/18/24 14:29 Height 5 ft 5 in Weight 330 lb BMI 54.9 Pulse 63 Pulse Source Pulse Oximeter Pulse Oximetry (%) 91 L Oxygen Delivery Method Room Air Comment 6 Liters Oxygen([facility]) Intake Visit Reasons: COPD Automation Lead Required: No Allergies codeine Adverse Reaction (Severe, Verified 07/18/24 14:32) Dizziness poison bashir extract Adverse Reaction (Severe, Verified 07/18/24 14:32) Nausea HPI Comments Details: The patient is a 68-year-old gentleman with a known history of COPD, chronic respiratory failure on oxygen between 3-6 L via nasal cannula, obstructive sleep apnea, morbid obesity in atrial fibrillation on anticoagulation. The patient is here for evaluation of worsening dyspnea symptoms. He complains of shortness of breath even with minimal activity. The oxygen has been helpful. He is inhalers include Ventolin. He was offered maintenance inhalers in the past but he opted not using them because of the concerns of adverse effects. We did review his PFTs that he had back in 09/2022. It appears that he has a moderate to severe obstructive process. He also did have a trend response to bronchodilators. Therefore, explained to the patient that maintenance inhalers will provide him with some relief. We can try a long-acting combination bronchodilator without a steroid to minimize his concerns. In addition to that based on the significant dyspnea symptoms we did discuss pulmonary rehabilitation. The patient is open to starting pulmonary rehab but ideally at [facility] because that is where he is from. The patient also had a chest x-ray done back in 09/2022 which was personally by me. It appears that he had a very pronounced bilateral hilum suggesting dilation of the pulmonary vessels. This is suspicious for pulmonary hypertension. He did have an echocardiogram about a year ago per the patient but this was done at [facility] and we do not have that result. We did evaluate a CTA from 2016 demonstrating indeed dilation of the pulmonary trunk suggesting pulmonary hypertension. Explained to the patient that likely his pulmonary hypertension is based on a WHO group 2 and 3 based on his cardiac and pulmonary disease. The patient did have a CTA back in 2015 that was negative for any thromboembolic disease and yet still had the evidence of the pulmonary hypertension. He does use CPAP at nighttime. The CPAP therapy has been affecting beneficial and he does use it for more than 4 hours a night. He does sometimes use his nasal cannula along with the CPAP for additional relief. He does get oxygen through [facility]. He has requesting a filling station. He is also wondering about a portable oxygen concentrator. During the visit we did do 6 minute walk test. The patient is limited due to his heart rate in his shortness of breath. Still he needed 4 L of oxygen with activity to maintain a pulse ox above 90%. Therefore, the patient does not qualify for portable oxygen concentrator he is aware of this. In addition, I am not sure if a filling station is able to be provided for that degree of oxygen requirement. But, we can ask. The patient will on-call for blood work today including a venous gas to see what his CO2 is. With chronic respiratory failure and COPD, if the CO2 is elevated he carries a poor prognosis and high risk for hospitalization. If his CO2 is elevated then we will see about a noninvasive ventilator to improve his prognosis, decrease hospitalizations and also improve his gas exchange. 02/26/2024 the patient is here for a pulmonary follow-up visit. Since we last spoke he is developing worsening shortness of breath and oxygen requirements. He has been at the pulmonary rehabilitation and they have documented that he is more hypoxic and recommended he had a repeat 6 minute walk test. Typically he requires 4 L with activity although he has been going up to 6 L. this is been getting worse for last couple days. He is having hard time doing any activity even at rest. He has been using his respiratory therapy with minimal response. He also is taking diuretics. The patient continues uses CPAP at nighttime. The CPAP therapy has been affecting beneficial. We did check a blood gas during the last visit and had a slight elevation in his CO2 47 mmHg. The patient still waiting for his sleep study. We did requested. Still waiting for insurance authorization. During the visit we did taken for 6 minute walk test. Again, the patient was placed on 4 L at rest maintaining a 90% but then with ambulation he required the maximum 8 L and still desaturating very quickly to 87%. He was also visibly dyspneic with a dyspnea score of 7/10. Denies any chest pain at this time. In view of the worsening hypoxia I did recommend he go to the ER. We did send to the ER for further care. 04/15/2024 the patient is here for a pulmonary follow-up visit. Overall he is doing okay. Seems to doing better with the high-flow concentrator. He has been using 4 L at rest and 6 L with activity. Seems to be effective for him at this time. He did go to the ER during the last visit and he was found to be volume overloaded. He did receive additional IV Lasix. He did not feel like he had significant diuresis. Although his respiratory exam is better. The patient is breathing is also better. The patient also had a blood gas which is reassuring. He continues with CPAP. The CPAP therapy has been affecting beneficial and he has been using the oxygen along with CPAP. Unfortunately has not been getting supplies from the [employer]. Will request information from [employer] to make sure that he has active with the company. If he has not active he is going to require another sleep study in order to become active specially with significant cardiovascular risk factors. The patient has been using the CPAP every night. Although his mask is old. I did have an N30 I mask small in the office that I did provide him to see this provides him some relief while we made for further information from his DME company. The patient has been participating in the pulmonary rehabilitation. I do believe point for him to continue but once he moves out of his apartment to the new apartment and gets situated restart rehab. A harsh respiratory therapy will continue with current respiratory regimen at this time. He does have systolic ejection murmur. 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 Now sure when his last echocardiogram. 07/18/2024 the patient is here for a pulmonary follow-up visit. The patient finally got his CPAP. It was a struggle to get that approved. Initially the [employer] company would not approve on machine without a sleep study. Then the insurance denied a sleep study. Finally he advocated for himself. He did call the insurance company in the insurance company agreed to provide him with a CPAP without a sleep study. Initially was under a p.o. but I believe at this point is should be all situated. We did call the [employer] to confirm. The patient does have severe chronic respiratory disease. He has been working closely with the pulmonary rehabilitation. Oxygen needs are high up to 6 L with activity in the makes it difficult for him to have enough portability. I will request a Oxymizer pendant from the [employer] in order to provide him better oxygen delivery once he is out of the house. He is also looking at weight management programs. I did refer him to a dietitian. The patient also will look into weight management program. He is not looking to have surgery she has medical interventions. I do believe that weight loss will help him significantly with his respiratory issue. With the patient is able he will undergo a chest x-ray and also blood gas. Follow-up in 4 months. The patient hopefully will bring the CPAP with him to review. [facility] Medical History (Updated 07/18/24 @ 15:00 by Dio Orantes MD) Overweight Pulmonary hypertension PARRIS (obstructive sleep apnea) Chronic respiratory failure COPD (chronic obstructive pulmonary disease) Allergy Social History Patient Tobacco Use Status: Former Tobacco user Tobacco use type: Cigarette Advance Directives Date on File: 02/26/24 Review of Systems Const Denies fever(s) Eyes Reports no additional complaints ENT Reports Normal hearing present and Reports nasal congestion Card Denies chest pain, Reports leg edema, Reports dyspnea and Reports dyspnea on exertion Resp Reports cough, Reports dyspnea, Reports dyspnea on exertion and Denies wheezing GI Reports no additional complaints Musc Reports abnormal gait and Reports myalgias Skin/Breast Denies rash Neuro Reports Normal hearing present and Reports abnormal gait Cesario/Lymph Denies lymphadenopathy Aller/Immun Denies wheezing Physical Exam Vital Signs: Last Vital Signs Pulse 63 07/18/24 14:29 Pulse Ox 91 L 07/18/24 14:29 Oxygen Delivery Method Room Air 07/18/24 14:29 BMI result Body Mass Index 54.9 Const General: cooperative, healthy appearing, comfortable, no acute distress, well developed and alert Nutritional Appearance: obese Orientation/consciousness: patient oriented x3 Limitations: no limitations HEENT Head: Yes normal to inspection, Yes normocephalic and Yes atraumatic Ears: hearing grossly normal bilaterally and external ears normal Eyes General: appearance normal, both eyes and all related structures Eyelids: Yes eyelids normal Sclerae: sclerae normal EOM: EOMs intact bilaterally Neck Neck: Yes normal visual inspection and Yes no lymphadenopathy Lymphatic: no lymphadenopathy noted Chest Chest palpation & inspection: normal inspection of the chest Resp Effort & Inspection: normal respiratory effort Auscultation: no rhonchi, no wheezes and diminished lung sounds Cardio Jugular venous distension: no JVD Rate: regular rate Rhythm: regular rhythm Heart sounds: Murmur heart sound present Skin Other: warm, dry General skin exam: no rashes or lesions noted Neuro General: patient oriented x3 Cranial nerves: Yes Normal hearing present Cognition (Neuro): normal cognition Gait exam (Neuro): Normal gait present Extrem General: No clubbing, No cyanosis and Yes edema Psych Appearance: grossly normal and well kempt Speech and movement: Normal speech and movement present and Clear speech present Affect: normal affect Attitude: cooperative Thought process: Normal thought process present Thought content: Normal thought content present Insight: Good insight present (Psych) Judgement: Good judgement present (Psych) Assessment & Plan Assessment & Plan (1) COPD (chronic obstructive pulmonary disease): Code(s): J44.9 - Chronic obstructive pulmonary disease, unspecified Category: Medical Qualifiers: COPD type: chronic bronchitis Chronic bronchitis type: simple Qualified Code(s): J41.0 - Simple chronic bronchitis (2) Allergy: Code(s): T78.40XA - Allergy, unspecified, initial encounter Category: Medical Qualifiers: Encounter type: initial encounter Qualified Code(s): T78.40XA - Allergy, unspecified, initial encounter (3) Chronic respiratory failure: Code(s): J96.10 - Chronic respiratory failure, unspecified whether with hypoxia or hypercapnia Category: Medical Qualifiers: Respiratory failure complication: hypoxia Qualified Code(s): J96.11 - C hronic respiratory failure with hypoxia (4) PARRIS (obstructive sleep apnea): Code(s): G47.33 - Obstructive sleep apnea (adult) (pediatric) Category: Medical (5) Pulmonary hypertension: Code(s): I27.20 - Pulmonary hypertension, unspecified Category: Medical (6) Overweight: Code(s): E66.3 - Overweight Category: Medical Plan continue Anoro PAWAN as needed Pulmonary rehab at [place] oxygen 4L at rest, 6L with activity,requesting oximizer pendant to use outside of the home continue CPAP with 2L oxygen at night. Needs supplies. N30i small mask provided. Did get a new APAP from DME. 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 and will also look into other programs F/U 3-4 months Orders: Orders Venous Blood Gas 07/18/24 J41.0 - Simple chronic bronchitis XR chest 2V 07/18/24 J41.0 - Simple chronic bronchitis Referrals Loan Operations Specialist Nutrition Referral E66.3 - Overweight Coding Level of Care Code Est Pt Level 4 (44413) Complex EM visit Add On G2211 Diagnoses Simple chronic bronchitis J41.0 COPD type: chronic bronchitis Chronic bronchitis type: simple Allergy, initial encounter T78.40XA Encounter type: initial encounter Chronic respiratory failure with hypoxia J96.11 Respiratory failure complication: hypoxia PARRIS (obstructive sleep apnea) G47.33 Pulmonary hypertension I27.20 Overweight E66.3 Time Spent (min) 17
[2024-07-18 14:29] VITALS: PULSE 63; O2SAT 91; BMI 54.9
== END 2024-07-18 15:50 | disposition home or self-care (01) ==
PROVIDERS: PCP Family Medicine; Visit Provider Hospitalist
DX: J41.0 Simple chronic bronchitis (principal); T78.40XA Allergy, unspecified, initial encounter; J96.11 Chronic respiratory failure with hypoxia; G47.33 Obstructive sleep apnea (adult) (pediatric); I27.20 Pulmonary hypertension, unspecified; E66.3 Overweight
CPT/HCPCS: 99214; G2211

== ENCOUNTER → 2024-07-18 14:23 | Outpatient (BNVA) | payer MEDICARE, SELFPAY | PROVIDERS: PCP Family Medicine; Visit Provider Hospitalist | DX: J41.0 Simple chronic bronchitis (principal); J96.11 Chronic respiratory failure with hypoxia; G47.33 Obstructive sleep apnea (adult) (pediatric); I27.20 Pulmonary hypertension, unspecified; E66.3 Overweight; T78.40XD Allergy, unspecified, subsequent encounter; Z68.43 Body mass index [BMI] 50.0-59.9, adult | CPT/HCPCS: 99212 ==

== ENCOUNTER 2025-01-20 14:19 | Outpatient (REF) | payer MEDICARE, SELFPAY ==
--- NOTE | ~2025-01-20 | XR_ITS ---
EXAMINATION: XR CHEST CLINICAL INFORMATION: I27.20 - Pulmonary hypertension, unspecified COMPARISON: 02/26/2024. TECHNIQUE: 2 views of the chest were obtained. FINDINGS: There is cardiac enlargement. Prominence of the vessels in the hilar regions suggesting vascular congestion. Mediastinal and aortic contour is normal. Lungs demonstrate mild prominence of the background interstitial markings, similar to the prior exam, without definite change. No consolidation. There is no pneumothorax or pleural effusion. Flattening of the hemidiaphragms. There is no focal osseous or soft tissue abnormality. XR/XR chest 2V IMPRESSION: 1. Cardiomegaly with mild vascular congestion. No overt pulmonary edema. No focal pneumonia. Electronically signed by: Jakob Pedrzaa MD 01/21/2025 02:52 PM EDT
[2025-01-20 15:57] LABS: MANUAL DIFF FLAG NO
[2025-01-20 16:14] LABS: Venous Blood Gas Refer to POC result
[2025-01-20 16:22] LABS: VBG Base Excess -1.4 mmol/L; VBG HCO3 23 mmol/L (22-26); VBG pCO2 39 mmHg; VBG pH 7.37 (7.32-7.43); VBG pO2 49 mmHg
[2025-01-20 16:26] LABS: VBG Base Excess -1.4 mmol/L; VBG HCO3 23 mmol/L (22-26); VBG pCO2 39 mmHg; VBG pH 7.37 (7.32-7.43); VBG pO2 49 mmHg
[2025-01-20 17:12] LABS: Basophils Percent Auto 0.3 % (0-2); Eosinophils Absolute Auto 0.1 X10*3/uL (0.0-0.4); Eosinophils Percent Auto 0.7 % (0-4); Hematocrit 45.2 % (42.0-52.0); Hemoglobin 14.6 g/dl (14.0-18.0); Imm Gran Abs Auto 0.05 X10*3/uL (0.00-0.03); Imm Gran Pct Auto 0.5 % (0.0-0.4); Lymphocytes Absolute Auto 0.8 X10*3/uL (1.2-4.9); Lymphocytes Percent Auto 8.2 % (20-40); Mean Corpuscular HGB Conc 32.3 g/dl (31.0-36.0); Mean Corpuscular Hemoglobin 31.5 pg (27.0-33.0); Mean Corpuscular Volume 97.4 fL (80.0-98.0); Mean Platelet Volume 9.5 fL (9.4-12.4); Monocytes Absolute Auto 0.7 X10*3/uL (0.1-1.2); Monocytes Percent Auto 7.9 % (2-11); Neutrophils Absolute Auto 7.5 x10*3/uL (2.0-8.3); Neutrophils Percent Auto 82.4 % (45-73); Platelet Count 213 X10*3/uL (160-400); Red Blood Count 4.64 X10*6/uL (4.60-5.80); Red Cell Distribution Width 15.3 % (11.0-16.0); White Blood Count 9.1 X10*3/uL (4.8-10.8)
[2025-01-20 17:39] LABS: Troponin-I High Sensitivity 23.9 ng/L (<3.5-35.0)
[2025-01-20 17:41] LABS: Alanine Aminotransferase 23 U/L (0-40); Albumin Level 3.8 g/dL (3.5-5.0); Alkaline Phosphatase 105 U/L (39-117); Anion Gap 13 (12-20); Aspartate Amino Transferase 32 U/L (5-37); Bilirubin Direct 0.4 mg/dL (0.0-0.5); Bilirubin Total 0.7 mg/dL (0.0-1.0); Blood Urea Nitrogen 35 mg/dL (9-16); Calcium 9.5 mg/dL (8.4-10.2); Carbon Dioxide 23 mmol/L (22-29); Chloride 107 mmol/L (96-108); Estimated Glomerular Filt Rate 50; Glucose Random 88 mg/dL (60-115); Potassium 4.7 mmol/L (3.3-5.1); Sodium 138 mmol/L (135-145); Total Protein 6.8 g/dL (6.5-8.0)
== END 2025-01-20 14:20 | disposition home or self-care (01) ==
LOC: HO.XRAY 14:19
PROVIDERS: Visit Provider Hospitalist
DX: J41.0 Simple chronic bronchitis (principal); J96.11 Chronic respiratory failure with hypoxia; T78.40XA Allergy, unspecified, initial encounter; G47.33 Obstructive sleep apnea (adult) (pediatric); I27.20 Pulmonary hypertension, unspecified; E66.3 Overweight
CPT/HCPCS: 36415; 71046; 80048; 80076; 82803; 84484; 85025; 99212

== ENCOUNTER 2025-01-20 14:19 | Outpatient (AMB) | payer MEDICARE, SELFPAY ==
--- NOTE | 2025-01-20 14:49 | MHC.OFFVIS ---
Vital Signs 01/20/25 14:50 Height 5 ft 5 in BMI Reason not done Patient refused/unable BP 112/78 Blood Pressure Location Rt brachial Position Sitting Pulse 58 Pulse Source Pulse Oximeter Pulse Oximetry (%) 91 L Oxygen Delivery Method Nasal Cannula Oxygen Flow Rate 6 Intake Visit Reasons: copd Allergies codeine Adverse Reaction (Severe, Verified 01/20/25 14:57) Dizziness poison bashir extract Adverse Reaction (Severe, Verified 01/20/25 14:57) Nausea HPI Comments Details: The patient is a 69-year-old gentleman with a known history of COPD, chronic respiratory failure on oxygen between 3-6 L via nasal cannula, obstructive sleep apnea, morbid obesity in atrial fibrillation on anticoagulation. The patient is here for evaluation of worsening dyspnea symptoms. He complains of shortness of breath even with minimal activity. The oxygen has been helpful. He is inhalers include Ventolin. He was offered maintenance inhalers in the past but he opted not using them because of the concerns of adverse effects. We did review his PFTs that he had back in 09/2022. It appears that he has a moderate to severe obstructive process. He also did have a trend response to bronchodilators. Therefore, explained to the patient that maintenance inhalers will provide him with some relief. We can try a long-acting combination bronchodilator without a steroid to minimize his concerns. In addition to that based on the significant dyspnea symptoms we did discuss pulmonary rehabilitation. The patient is open to starting pulmonary rehab but ideally at [facility] because that is where he is from. The patient also had a chest x-ray done back in 09/2022 which was personally by me. It appears that he had a very pronounced bilateral hilum suggesting dilation of the pulmonary vessels. This is suspicious for pulmonary hypertension. He did have an echocardiogram about a year ago per the patient but this was done at [facility] and we do not have that result. We did evaluate a CTA from 2016 demonstrating indeed dilation of the pulmonary trunk suggesting pulmonary hypertension. Explained to the patient that likely his pulmonary hypertension is based on a WHO group 2 and 3 based on his cardiac and pulmonary disease. The patient did have a CTA back in 2015 that was negative for any thromboembolic disease and yet still had the evidence of the pulmonary hypertension. He does use CPAP at nighttime. The CPAP therapy has been affecting beneficial and he does use it for more than 4 hours a night. He does sometimes use his nasal cannula along with the CPAP for additional relief. He does get oxygen through [employer]. He has requesting a filling station. He is also wondering about a portable oxygen concentrator. During the visit we did do 6 minute walk test. The patient is limited due to his heart rate in his shortness of breath. Still he needed 4 L of oxygen with activity to maintain a pulse ox above 90%. Therefore, the patient does not qualify for portable oxygen concentrator he is aware of this. In addition, I am not sure if a filling station is able to be provided for that degree of oxygen requirement. But, we can ask. The patient will on-call for blood work today including a venous gas to see what his CO2 is. With chronic respiratory failure and COPD, if the CO2 is elevated he carries a poor prognosis and high risk for hospitalization. If his CO2 is elevated then we will see about a noninvasive ventilator to improve his prognosis, decrease hospitalizations and also improve his gas exchange. 02/26/2024 the patient is here for a pulmonary follow-up visit. Since we last spoke he is developing worsening shortness of breath and oxygen requirements. He has been at the pulmonary rehabilitation and they have documented that he is more hypoxic and recommended he had a repeat 6 minute walk test. Typically he requires 4 L with activity although he has been going up to 6 L. this is been getting worse for last couple days. He is having hard time doing any activity even at rest. He has been using his respiratory therapy with minimal response. He also is taking diuretics. The patient continues uses CPAP at nighttime. The CPAP therapy has been affecting beneficial. We did check a blood gas during the last visit and had a slight elevation in his CO2 47 mmHg. The patient still waiting for his sleep study. We did requested. Still waiting for insurance authorization. During the visit we did taken for 6 minute walk test. Again, the patient was placed on 4 L at rest maintaining a 90% but then with ambulation he required the maximum 8 L and still desaturating very quickly to 87%. He was also visibly dyspneic with a dyspnea score of 7/10. Denies any chest pain at this time. In view of the worsening hypoxia I did recommend he go to the ER. We did send to the ER for further care. 04/15/2024 the patient is here for a pulmonary follow-up visit. Overall he is doing okay. Seems to doing better with the high-flow concentrator. He has been using 4 L at rest and 6 L with activity. Seems to be effective for him at this time. He did go to the ER during the last visit and he was found to be volume overloaded. He did receive additional IV Lasix. He did not feel like he had significant diuresis. Although his respiratory exam is better. The patient is breathing is also better. The patient also had a blood gas which is reassuring. He continues with CPAP. The CPAP therapy has been affecting beneficial and he has been using the oxygen along with CPAP. Unfortunately has not been getting supplies from the [employer]. Will request information from [employer] to make sure that he has active with the company. If he has not active he is going to require another sleep study in order to become active specially with significant cardiovascular risk factors. The patient has been using the CPAP every night. Although his mask is old. I did have an N30 I mask small in the office that I did provide him to see this provides him some relief while we made for further information from his DME company. The patient has been participating in the pulmonary rehabilitation. I do believe point for him to continue but once he moves out of his apartment to the new apartment and gets situated restart rehab. A harsh respiratory therapy will continue with current respiratory regimen at this time. He does have systolic ejection murmur. 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 Now sure when his last echocardiogram. 07/18/2024 the patient is here for a pulmonary follow-up visit. The patient finally got his CPAP. It was a struggle to get that approved. Initially the [employer] company would not approve on machine without a sleep study. Then the insurance denied a sleep study. Finally he advocated for himself. He did call the insurance company in the insurance company agreed to provide him with a CPAP without a sleep study. Initially was under a p.o. but I believe at this point is should be all situated. We did call the [employer] to confirm. The patient does have severe chronic respiratory disease. He has been working closely with the pulmonary rehabilitation. Oxygen needs are high up to 6 L with activity in the makes it difficult for him to have enough portability. I will request a Oxymizer pendant from the [employer] in order to provide him better oxygen delivery once he is out of the house. He is also looking at weight management programs. I did refer him to a dietitian. The patient also will look into weight management program. He is not looking to have surgery she has medical interventions. I do believe that weight loss will help him significantly with his respiratory issue. With the patient is able he will undergo a chest x-ray and also blood gas. Follow-up in 4 months. The patient hopefully will bring the CPAP with him to review. 01/20/2025 the patient is here for pulmonary follow-up visit. The patient is feeling like he is getting worse. He is more short of breath. He has a hard time doing any activities of daily living. He lives in a small apartment in even getting to the bathroom is very hard for him. He is having hard time cooking showering therefore he has not been able to take good care of his hygiene. He does get meals on wheels. The patient has been noticing some increased weight gain and some swelling of his legs. I do not have his echocardiogram I have to requested from his life insurance salesperson and [facility]. My suspicion is the patient developing cor pulmonale with significant lower extremity edema now resulting in worsening shortness of breath. Based on his COPD and his respiratory failure will go ahead and request a venous blood gas to see if there is any evidence of hypercarbia where he may benefit from a noninvasive ventilator. In addition to that will request blood work and likely will provide him with some degree of diuresis once we assess kidney function. [facility] Medical History (Updated 07/18/24 @ 15:00 by Dio Orantes MD) Overweight Pulmonary hypertension PARRIS (obstructive sleep apnea) Chronic respiratory failure COPD (chronic obstructive pulmonary disease) Allergy Social History Patient Tobacco Use Status: Former Tobacco user Tobacco use type: Cigarette Advance Directives Date on File: 02/26/24 Review of Systems Const Denies fever(s) Eyes Reports no additional complaints ENT Reports Normal hearing present and Reports nasal congestion Card Denies chest pain, Reports leg edema, Reports dyspnea and Reports dyspnea on exertion Resp Reports cough, Reports dyspnea, Reports dyspnea on exertion and Denies wheezing GI Reports no additional complaints Musc Reports abnormal gait and Reports myalgias Skin/Breast Denies rash Neuro Reports Normal hearing present and Reports abnormal gait Cesario/Lymph Denies lymphadenopathy Aller/Immun Denies wheezing Physical Exam Vital Signs: Last Vital Signs Pulse 58 01/20/25 14:50 BP 112/78 01/20/25 14:50 Pulse Ox 91 L 01/20/25 14:50 Oxygen Delivery Method Nasal Cannula 01/20/25 14:50 Oxygen Flow Rate 6 01/20/25 14:50 Const General: cooperative, healthy appearing, comfortable, no acute distress, well developed and alert Nutritional Appearance: obese Orientation/consciousness: patient oriented x3 Limitations: no limitations HEENT Head: Yes normal to inspection, Yes normocephalic and Yes atraumatic Ears: hearing grossly normal bilaterally and external ears normal Eyes General: appearance normal, both eyes and all related structures Eyelids: Yes eyelids normal Sclerae: sclerae normal EOM: EOMs intact bilaterally Neck Neck: Yes normal visual inspection and Yes no lymphadenopathy Lymphatic: no lymphadenopathy noted Chest Chest palpation & inspection: normal inspection of the chest Resp Effort & Inspection: normal respiratory effort Auscultation: no rhonchi, no wheezes and diminished lung sounds Cardio Jugular venous distension: no JVD Rate: regular rate Rhythm: regular rhythm Heart sounds: Murmur heart sound present Skin Other: warm, dry General skin exam: no rashes or lesions noted Neuro General: patient oriented x3 Cranial nerves: Yes Normal hearing present Cognition (Neuro): normal cognition Gait exam (Neuro): Normal gait present Extrem General: No clubbing, No cyanosis and Yes edema Psych Appearance: grossly normal and well kempt Speech and movement: Normal speech and movement present and Clear speech present Affect: normal affect Attitude: cooperative Thought process: Normal thought process present Thought content: Normal thought content present Insight: Good insight present (Psych) Judgement: Good judgement present (Psych) Results Reviewed Results Reviewed: personally reviewed CXR 2023 with pulmonary vascular congestion and cardiomegally Assessment & Plan Assessment & Plan (1) COPD (chronic obstructive pulmonary disease): Code(s): J44.9 - Chronic obstructive pulmonary disease, unspecified Category: Medical Qualifiers: COPD type: chronic bronchitis Chronic bronchitis type: simple Qualified Code(s): J41.0 - Simple chronic bronchitis (2) Allergy: Code(s): T78.40XA - Allergy, unspecified, initial encounter Category: Medical Qualifiers: Encounter type: initial encounter Qualified Code(s): T78.40XA - Allergy, unspecified, initial encounter (3) Chronic respiratory failure: Code(s): J96.10 - Chronic respiratory failure, unspecified whether with hypoxia or hypercapnia Category: Medical Qualifiers: Respiratory failure complication: hypoxia Qualified Code(s): J96.11 - Chronic respiratory failure with hypoxia (4) PARRIS (obstructive sleep apnea): Code(s): G47.33 - Obstructive sleep apnea (adult) (pediatric) Category: Medical (5) Pulmonary hypertension: Code(s): I27.20 - Pulmonary hypertension, unspecified Category: Medical (6) Overweight: Code(s): E66.3 - Overweight Category: Medical Plan continue Anoro PAWAN as needed Pulmonary rehab at [place] oxygen 4L at rest, 6L with activity,requesting oximizer pendant to use outside of the home continue CPAP with 2L oxygen at night. Needs supplies. N30i small mask provided. Did get a new APAP from DME. Will request a bloodgas-no hypercarbia CXR diuresis as tolerated F/U 3-4 weeks Orders: Orders Venous Blood Gas Today I27.20 - Pulmonary hypertension, unspecified, J41.0 - Simple chronic bronchitis, J96.11 - Chronic respiratory failure with hypoxia Troponin-I High Sensitivity Today I27.20 - Pulmonary hypertension, unspecified, J41.0 - Simple chronic bronchitis, J96.11 - Chronic respiratory failure with hypoxia Complete Blood Count Auto Diff Today I27.20 - Pulmonary hypertension, unspecified, J41.0 - Simple chronic bronchitis, J96.11 - Chronic respiratory failure with hypoxia Basic Metabolic Panel Today I27.20 - Pulmonary hypertension, unspecified, J41.0 - Simple chronic bronchitis, J96.11 - Chronic respiratory failure with hypoxia Liver Panel Today I27.20 - Pulmonary hypertension, unspecified, J41.0 - Simple chronic bronchitis, J96.11 - Chronic respiratory failure with hypoxia XR chest 2V Today I27.20 - Pulmonary hypertension, unspecified, J41.0 - Simple chronic bronchitis, J96.11 - Chronic respiratory failure with hypoxia Coding Level of Care Code Est Pt Level 5 (61813) Complex EM visit Add On G2211 Diagnoses Simple chronic bronchitis J41.0 COPD type: chronic bronchitis Chronic bronchitis type: simple Allergy, initial encounter T78.40XA Encounter type: initial encounter Chronic respiratory failure with hypoxia J96.11 Respiratory failure complication: hypoxia PARRIS (obstructive sleep apnea) G47.33 Pulmonary hypertension I27.20 Overweight E66.3 Time Spent (min) 45
[2025-01-20 14:50] VITALS: BP 112/78; PULSE 58; O2SAT 91
--- OUTSIDE RECORDS SUMMARY | 2025-01-20 17:56 | XMS_ITS | Clinical Summary ---
[facility] Address [address] [place] [address] Care Team Providers Care Governor Assembler Name Role Phone Unavailable Primary Care Provider Unavailabl e Social History Tobacco Use Types Packs/Day Years Used Date Smoking Tobacco: Never Assessed Sex and Gender Information Value Date Recorded Sex Assigned at Not on file Gender Identity Not on file Sexual Orientation Not on file Plan of Treatment Not on file
--- OUTSIDE RECORDS SUMMARY | 2025-01-20 17:56 | XMS_ITS | Clinical Summary ---
Author Organization [place] [address] [address] Building Address [address] [facility] [place] [address] Phone Care Team Providers Care E Commerce Solution Architect Name Role Phone PiterCher davidson Primary Care Provider [phone] Allergies Active Allergy Reactions Criticality Noted Date Comments Codeine Nausea And Vomiting 06/26/2013 Oxycodone 10/01/2024 Nausea Medications olmesartan (BENICAR) 40 mg tablet Take 1 tablet (40 mg total) by mouth 1 (one) time each day. 08/05/20 24 Active cholecalciferol (VITAMIN D-3) 25 mcg (1,000 unit) capsule Take 8,000 mcg by mouth daily. Active albuterol HFA (PROAIR HFA ; PROVENTIL HFA ; VENTOLIN HFA) 90 mcg/actuation inhaler Inhale 2 Puffs into the lungs every 4 hours as needed for Shortness of Breath. 11/12/19 24 Active Oxygen Therapy (O2) gas Inhale 4 L into the lungs as needed. Active multivitamin (MULTIPLE VITAMINS ORAL) Take 1 Tab by mouth daily. Active ubidecarenone (COENZYME Q10 ORAL) Take 300 mg by mouth daily. Active apixaban (Eliquis) 5 mg tabletIndication s:Unspecified atrial fibrillation (CMS/HCC) TAKE 1 TABLET BY MOUTH TWICE A DAY 180 tablet 1 09/29/20 24 Active FLUoxetine (PROzac) 20 mg capsuleIndicatio ns:Anxiety disorder, unspecified TAKE 2 CAPSULES BY MOUTH EVERY DAY 180 capsule 09/26/20 24 Active atorvastatin (LIPITOR) 40 mg tablet TAKE 1 TABLET DAILY 90 tablet 1 11/20/19 25 Active allopurinoL (ZYLOPRIM) 100 mg tablet Take 1 tablet (100 mg total) by mouth 1 (one) time each day. 90 tablet 1 11/21/19 25 Active chlorthalidone (HYGROTON) 25 mg tablet TAKE 1 TABLET DAILY 90 tablet 1 12/02/19 25 Active busPIRone (BUSPAR) 30 mg tabletIndication s:Major depressive disorder, single episode, in full remission (CMS/HCC) TAKE 1 TABLET BY MOUTH TWICE A DAY 180 tablet 1 12/04/19 25 Active DILT-XR 120 mg 24 hr capsule TAKE 1 CAPSULE DAILY 90 capsule 1 12/23/19 25 Active buPROPion SR (WELLBUTRIN SR) 200 mg 12 hr tablet TAKE 1 TABLET BY MOUTH TWICE A DAY 180 tablet 1 12/24/19 25 Active dilTIAZem XR (DILACOR XR) 120 mg 24 hr capsule Take 1 capsule (120 mg total) by mouth 1 (one) time each day. 06/24/20 24 025 Discontinued buPROPion SR (WELLBUTRIN SR) 200 mg 12 hr tablet Take 1 tablet (200 mg total) by mouth 2 (two) times a day. 04/30/20 24 025 Discontinued Active Problems Problem Noted Date Diagnosed Date Angina pectoris 08/15/2024 Anxiety 08/15/2024 Arthritis 08/15/2024 Overview (08/15/2024): L hip bilateral knee and R is worse Osteoarthritis 08/15/2024 Overview (08/15/2024): L hip bilateral knee and R is worse Chronic diastolic heart failure 08/15/2024 Overview (08/15/2024): Grade II. Echo 2013 Last Assessment & Plan: Patient's history of significant diastolic heart failure with evidence of aortic stenosis. At this time he appears euvolemic and he continues on chlorthalidone. No changes to his medical therapies today. Patient advised to seek emergency medical attention by calling 911 if they were to develop severe dyspnea, chest pain that did not resolve with rest or nitroglycerin, or if they were to faint. I've asked the patient to call if they develop worsening symptoms of heart failure such as increased shortness of breath, new or worsening cough, increased swelling in the legs or ankles, or weight gain of more than 2 pounds in one day or 4 pounds in one week. Depression 08/15/2024 Gout 08/15/2024 HTN (hypertension) 08/15/2024 Overview (08/15/2024): Last Assessment & Plan: Blood pressure is well-controlled with a reading today of 134/86. At his last office visit we switched amlodipine to diltiazem. He is tolerating this well. Continue with diltiazem, olmesartan and chlorthalidone as prescribed. Hyperlipidemia with target LDL less than 100 Overview (08/15/2024): Secondary to renal dz goal <100 IMO update Last Assessment & Plan: Patient's goal LDL cholesterol is less than 100. Patient's last LDL cholesterol was 66. This is at goal continue with atorvastatin as prescribed. Tremor 12/06/2023 SOB (shortness of breath) 08/03/2023 Overview (08/15/2024): Last Assessment & Plan: Patient has history of chronic shortness of breath likely related to COPD, obstructive sleep apnea and pulmonary hypertension. However he does have coronary risk factors due to his hypertension, hyperlipidemia, obesity and chronic kidney disease. Cardiac PET stress test did not reveal any evidence of ischemia. Arrhythmia 11/10/2022 Atrial fibrillation 10/31/2022 Overview (08/15/2024): Last Assessment & Plan: Patient's history of atrial fibrillation. At his last office visit I switched amlodipine to diltiazem for better rate control. This seems to be providing him with better heart rate control of his atrial fibrillation and his blood pressure remained stable. He will continue on anticoagulation with Eliquis 5 mg twice a day. Exercise hypoxemia 02/26/2017 Overview (08/15/2024): On O2 Prediabetes 02/19/2015 CKD (chronic kidney disease) stage 3, GFR 30-59 ml/min 04/15/2014 Obstructive sleep apnea (adult) (pediatric) 10/30 Overview (08/15/2024): Hospital Discharge [place] 03/27/13. Recurrent cellulitis of lower leg 03/14/2013 Overview (08/15/2024): [facility]; [facility]; presented w/ fever only Venous U/S normal 05/08, 03/10 Pulmonary hypertension 04/02/2012 Overview (08/15/2024): Last Assessment & Plan: Patient is history of pulmonary hypertension which is likely secondary to sleep apnea, COPD and restrictive lung disease. This is longstanding. He is awaiting a new patient consult visit with a different fine dining server. He continues on oxygen therapy. Asthma 02/24/2011 Morbid obesity 02/24/2011 Immunizations Name Administration Dates Next Due Influenza Quadravalent, MDCK , 0.5ml, preservative free (Flucelvax) 6mo and older 06/29/2020,09/09/2017 Influenza trivalent, 0.5mL ( Fluad) 65yo and older 10/02/2024,09/04/2022 Influenza trivalent, 0.5mL, preservative free (Fluarix; FluLaval; Fluzone) ages 6mo and older (Afluria) 3 years and older 08/31/2023,06/30/2020,07/30/2019,08/28,08/01/2016,2015,08/12/2012 ,07/07/2011 Pfizer (ages 12 & older) Biv alent, COVID-19 08/31/2023 Pfizer SARS-CoV-2 COVID-19, mRNA, LNP-S, preservative free 08/26/2021,02/12/2021,01/23/2021 Pneumococcal conjugate 13 va lent (Prevnar 13, PCV13) 2mo and older 03/21/2021 Pneumococcal conjugate 20 va lent (Prevnar 20, PCV 20) 2mo and older 08/31/2023 Pneumococcal polysaccharide 23 valent (Pneumovax 23) 2yo and older 09/04/2022,10/29/2016,04/01/2014 Td Tetanus diptheria (Tdvax) 7yo and older 10/25/2021 Tdap Tetanus diptheria acell ular pertussis (Boostrix; Adacel) 7yo and older 07/07/2011 Surgical History Surgery Date Site/Laterality Comments TONSILLECTOMY child PROCEDURE: HISTORICAL TONSILLECTOMY HERNIA REPAIR 2009 PROCEDURE: REPAIR UMBILICAL HERNIA; COMMENT: jordy boo OTHER SURGICAL HISTORY PROCEDURE: HISTORICAL MELANOMA COLONOSCOPY 07/24/2017 PROCEDURE: HISTORICAL COLONOSCOPY; COMMENT: [facility], negative/incomplete to the middle of the right colon. Multiple diverticula. Medical History Medical History Date Comments HTN (hypertension) DX:HTN (hyper tension) Gout DX:Gout Cellulitis DX:Cellulitis; C OMMENT: 2015 Congestive heart failure ([facility]/HCC) DX:Congestive heart failure (HCC); COMMENT: diastolic dysfunction Skin melanoma ([facility]) 2000 DX:Skin melanoma ([facility]); COMMENT: forehead; Dr. Powell Squamous cell carcinoma 2003 DX:Squam ous cell carcinoma; COMMENT: L forearm Depression DX:Depression Anxiety DX:Anxiety Osteoarthritis DX:Osteoarthriti s; COMMENT: L hip bilateral knee and R is worse High cholesterol DX:High cholest alex Morbid obesity ([facility]/HCC) 02/24/2011 DX:Morb id obesity ([facility]) Asthma 02/24/2011 DX:Asthma PARRIS (obstructive sleep apnea) DX :PARRIS (obstructive sleep apnea); COMMENT: CPAP, Dr Guajardo Amblyopia, unspecified DX:Amblyo myles, unspecified; COMMENT: right eye Historical Medical DX DX:Other a nd unspecified malignant neoplasm of skin of other and unspecified parts of face MRSA (methicillin resistant staph aureus) culture positive DX:MRSA (methicillin resista nt staph aureus) culture positive; COMMENT: left flank abscess 11/2015 History of colonoscopy 08/03/2017 DX:Histor y of colonoscopy; COMMENT: 08/03/2017: Incomplete colonoscopy to the right colon. Would continue colon cancer screening with FIT. Kidney damage DX:Kidney damage ; COMMENT: bilateral after strong diuretic Family History Medical History Relation Name Comments Hypertension Brother 1 Hypertension Brother 2 Hypertension Father Stroke Father Glaucoma Maternal Grandfather Dementia Mother Glaucoma Mother Uterine cancer Mother Cataracts Sister 1 Hypertension Sister 1 Hypertension Sister 2 Blindness Neg Hx Macular degeneration Neg Hx Strabismus Neg Hx Relation Name Status Comments Brother 1 Alive asthma, htn Brother 2 Alive htn Father cerebral hemrag e, htn Maternal Grandfather old age Maternal Grandmother alcholi sm Mother deminatia and o ther Paternal Grandfather unknown Paternal Grandmother unknown Sister 1 Alive htn, cateract Sister 2 Alive htn Social History Tobacco Use Types Packs/Day Years Used Date Smoking Tobacco: Never Smokeless Tobacco: Never Tobacco Cessation:Counseling Given: Not Answered Alcohol Use Standard Drinks/Week Comments Yes 0 (1 standard drink = 0.6 oz pur e alcohol) Housing Instability Answer Date Recorde d Are you worried that in the next 2 months you may not have stable housing? No 09/29/2024 Food Access & Nutrition Answer Date Rec orded Do you have access to a vari ety of food including fruits and vegetables? Yes 09/29/2024 Access to Healthcare Answer Date Record ed Within the last 3 months, ho w many times did you visit the emergency department for your medical care? 0 09/29/2024 Health Literacy Answer Date Recorded How often do you need to hav e someone help you when you read instructions, pamphlets, or other written material from your doctor or pharmacy? Never 09/29/2024 Caregiver: How often do you need to have someone help you when you read instructions, pamphlets, or other written material from your doctor or pharmacy? Not on file 09/29/2024 Financial Risk Answer Date Recorded How hard is it for you to pa y for the very basics like food, housing, medical care, and air conditioning / heating? Not very hard 09/29/2024 Transportation Answer Date Recorded Has the lack of transportati on kept you from meetings, work, or from getting things needed for daily living? Yes Has the lack of transportati on kept you from medical appointments or from getting medications? No 09/29/2024 Social Isolation Answer Date Recorded How often do you feel lonely or isolated from th ose around you? Often 09/29/2024 Food Risk Answer Date Recorded Within the past 12 months we worried whether our food would run out before we got money to buy more. Never true 09/29/2024 Within the past 12 months th e food we bought just didn't last and we didn't have money to get more. Never true 09/29/2024 Dependent Care Answer Date Recorded Do you need help finding or paying for care for your loved ones. For example, child care centre manager or elderly care for an older adult? No 09/29/2024 Education Answer Date Recorded Do you think completing more education or training, like finishing a GED, going to college, or learning a trade, would be helpful for you? No 09/29/2024 Employment and Income Answer Date Recor ded During the last four weeks, have you been actively looking for work? No 09/29/2024 Living Situation Answer Date Recorded What is your living situation? 1 11/30/2023 Sex and Gender Information Value Date Recorded Sex Assigned at Male 10/30/2022 12:05 PM EST Legal Sex Male 10:54 AM EST Gender Identity Male 10/30/2022 12:05 PM EST Sexual Orientation Straight 10/30/2022 12 :05 PM EST Obstetrics History Last Filed Vital Signs Vital Sign Reading Time Taken Comments Blood Pressure 106/59 10/01/2024 2:50 PM EST aut o Pulse 57 10/01/2024 2:50 PM EST Temperature - - Respiratory Rate 96 10/01/2024 2:50 PM EST Oxygen Saturation 99% 11/15/2022 9:53 AM EST on 4 L of O2 Inhaled Oxygen Concentration - - Weight 152 kg (335 lb) 02/12/2024 2:55 PM EDT Height 165.1 cm (5' 5 ) 10/01/2024 2:50 PM EST Body Mass Index 55.75 10/12/2023 3:19 PM EST Plan of Treatment Upcoming Encounters Date Type Department Care Team (Late st Contact Info) Description 02/17/2025 2:00 PM EDT Office Visit [facility] [address] [facility] [phone] Rishi Nicolas MD [address] [place] [phone] 04/02/2025 3:00 PM EDT Office Visit Internal Medicine - [facility] [address] [facility] [place] [phone] Cher Dozier, DO [address] [place] [address] Health Maintenance Due Date Last Done Comments Zoster Vaccines (1 of 2) 2005 RSV Immunization Patients 60+ Years Old (1 - Risk 60-74 years 1-dose series) 2015 Colorectal Cancer Screening: Stool Based Tests (FOBT/FIT) 10/07/2022 Medicare Annual Wellness Visit 10/07/2022 Hypertension/CHF/CAD Annual BMP Blood Test 10/08/2022 COVID-19 Vaccine ( season) 2024 08/31/2023, 10/03/2022, 08/26/2021, Additional history exists Depression Screening 09/29/2025 09/29/2024, 06/05/20 Social Influencers of Health Screening 09/29/2025 09/29/2024 Falls Risk Assessment 10/01/2025 10/01/2024 Cholesterol Screening (Lipid Panel) 12/06/2028 12/06/2023 DTaP,Tdap,and Td Vaccines (3 - Td or Tdap) 10/25/2031 10/25/2021, 07/07/2011 Hepatitis C Screening Completed 03/17/2013 Pneumococcal Vaccine: 50+ Years Completed 08/31/2023, 09/04/2022, 03/21/2021, Additional history exists Influenza Vaccine Completed 10/02/2024, , 09/04/2022, Additional history exists HIB Vaccines Aged Out No longer eligi ble based on patient's age to complete this topic HPV Vaccines Aged Out No longer eligi ble based on patient's age to complete this topic Hepatitis A Vaccines Aged Out No long er eligible based on patient's age to complete this topic Hepatitis B Vaccines Aged Out No long er eligible based on patient's age to complete this topic IPV Vaccines Aged Out No longer eligi ble based on patient's age to complete this topic MMR Vaccines Aged Out No longer eligi ble based on patient's age to complete this topic Meningococcal ACWY Vaccine Aged Out N o longer eligible based on patient's age to complete this topic Meningococcal B Vacine Aged Out No lo nger eligible based on patient's age to complete this topic RSV Immunization Patients Under 20 months Aged Out No longer eligible based on patient's age to complete this topic Varicella Vaccines Aged Out No longer eligible based on patient's age to complete this topic Procedures Procedure Name Priority Date/Time Associated Diagnosis Comments DEPRESSION SCREENING Routine 06/05/2024 LIPID PANEL Routine 12/06/2023 HEPATITIS C SCREENING Routine 03/17/2013 from Last 3 Months or Most Recently Relevant to Health Maintenance Results * Depression Screening (06/05/2024) Pathologist [facility] Depression Screening abstracted [facility] Provider HEALTH MAINTENANCE Final Result * Lipid panel (12/06/2023) [facility] LDL/HDL Ratio 3 0 - 4 Triglycerides 75 0 - 150 mg/dL Cholesterol 106 0 - 200 mg/dL HDL 43 >=40 mg/dL LDL Cholesterol 48 0 - 100 mg/dL Blood Venous blood specimen / Unknown [facility] Provider LAB BLOOD ORDERABLES Sharona l Result * Hepatitis C Screening (03/17/2013) [facility] Hepatitis C Screening abstracted [facility] Provider HEALTH MAINTENANCE Final Result from Last 3 Months or Most Recently Relevant to Health Maintenance Insurance [facility] MEDICARE ADVANTAGE Care Teams E Commerce Solution Architect Relationship Specialty Start Date End Date Cher Dozier DO [address] [facility] [place] [address] PCP - General 07/31/24
== END 2025-01-20 15:37 | disposition home or self-care (01) ==
LOC: HO.HPS 14:20
PROVIDERS: PCP Family Medicine; Visit Provider Hospitalist
DX: J41.0 Simple chronic bronchitis (principal); J96.11 Chronic respiratory failure with hypoxia; G47.33 Obstructive sleep apnea (adult) (pediatric); I27.20 Pulmonary hypertension, unspecified
CPT/HCPCS: 99215; G2211

== ENCOUNTER → 2025-01-20 15:56 | Outpatient (BNV) | payer MEDICARE, SELFPAY | PROVIDERS: Visit Provider Radiology Diagnostic Radiology | DX: I51.7 Cardiomegaly (principal) | CPT/HCPCS: 71046 ==

== ENCOUNTER 2025-02-27 19:56 | Inpatient (IN) | payer MEDICARE, SELFPAY ==
--- NOTE | ~2025-02-27 | US_ITS ---
CLINICAL HISTORY: LUMP swelling below right elbow Focused/limited ultrasound at area of interest at the right elbow. Comparison: None Findings: Extensive edema is noted within the subcutaneous soft tissues at the area of interest. No drainable or organized fluid collection identified. Impression: Nonspecific subcutaneous edema. No organized or drainable fluid collection. This document has been electronically signed by: Jose Roberto Matthews MD, PHD on 02/28/2025 16:01:26
--- NOTE | ~2025-02-27 | XR_ITS ---
CLINICAL HISTORY: elbow swelling 4 view right elbow Comparison: None Findings: Examination limited by positioning factors. No definite acute fractures. Normal alignment. No significant arthritic change or erosions. No definite joint effusion. No radiopaque foreign body. IMPRESSION: Limited examination demonstrating no definite fracture. This document has been electronically signed by: Jazmin Mendoza MD on 03/01/2025 14:05:06
--- NOTE | ~2025-02-27 | XR_ITS ---
CLINICAL HISTORY: sob 1 view chest x-ray. Comparison: CR/SR - XR CHEST 2V - 01/20/25 15:57 EDT Findings: The study is mildly limited by large body habitus. There appears to be pulmonary vascular congestion similar to the prior study. Lungs appear otherwise clear. Enlargement of the cardiac silhouette appears stable. IMPRESSION: Stable cardiomegaly and pulmonary vascular congestion. This document has been electronically signed by: Natan Valera MD on 02/27/2025 21:06:00
[2025-02-27 20:00] VITALS: BP 105/60; BP 108/43; PULSE 60; PULSE 66; RESP 24; O2SAT 80; O2SAT 92; BMI 59.9
[2025-02-27 20:13] VITALS: PULSE 85; RESP 20; O2SAT 90
--- NOTE | 2025-02-27 20:13 | ECG_ITS ---
Test Reason : sob Blood Pressure : */* mmHG Vent. Rate : 65 BPM Atrial Rate : 234 BPM P-R Int : * ms QRS Dur : 108 ms QT Int : 438 ms P-R-T Axes : * 57 20 degrees QTcB Int : 455 ms Atrial fibrillation Low voltage QRS Incomplete right bundle branch block Septal infarct (cited on or before 26-Feb-2024) Abnormal ECG When compared with ECG of Incomplete right bundle branch block is now Present Referred By: Priya Leal Electronically Signed By: Sinan Christian
[2025-02-27 20:22] LABS: MANUAL DIFF FLAG NO
[2025-02-27 20:25] LABS: Basophils Percent Auto 0.4 % (0-2); Eosinophils Absolute Auto 0.1 X10*3/uL (0.0-0.4); Eosinophils Percent Auto 0.5 % (0-4); Hematocrit 39.8 % (42.0-52.0); Hemoglobin 13.1 g/dl (14.0-18.0); Imm Gran Abs Auto 0.06 X10*3/uL (0.00-0.03); Imm Gran Pct Auto 0.6 % (0.0-0.4); Lymphocytes Absolute Auto 0.7 X10*3/uL (1.2-4.9); Lymphocytes Percent Auto 6.2 % (20-40); Mean Corpuscular HGB Conc 32.9 g/dl (31.0-36.0); Mean Corpuscular Hemoglobin 32.3 pg (27.0-33.0); Mean Platelet Volume 8.8 fL (9.4-12.4); Monocytes Absolute Auto 0.8 X10*3/uL (0.1-1.2); Monocytes Percent Auto 7.3 % (2-11); Neutrophils Absolute Auto 9.3 x10*3/uL (2.0-8.3); Platelet Count 208 X10*3/uL (160-400); Red Blood Count 4.06 X10*6/uL (4.60-5.80); Red Cell Distribution Width 15.5 % (11.0-16.0); White Blood Count 10.9 X10*3/uL (4.8-10.8)
[2025-02-27 20:25] LABS: VBG Base Excess 0.9 mmol/L; VBG HCO3 25 mmol/L (22-26); VBG pCO2 39 mmHg; VBG pH 7.41 (7.32-7.43); VBG pO2 87 mmHg
[2025-02-27 20:25] LABS: Venous Blood Gas Refer to POC result
[2025-02-27 20:39] LABS: Alanine Aminotransferase 18 U/L (0-40); Albumin Level 3.4 g/dL (3.5-5.0); Alkaline Phosphatase 92 U/L (39-117); Anion Gap 13 (12-20); Aspartate Amino Transferase 31 U/L (5-37); Bilirubin Total 0.6 mg/dL (0.0-1.0); Blood Urea Nitrogen 35 mg/dL (9-16); Calcium 8.8 mg/dL (8.4-10.2); Carbon Dioxide 25 mmol/L (22-29); Chloride 104 mmol/L (96-108); Creatinine Clr Calc Pharmacy 86.9; Estimated Glomerular Filt Rate > 60; Glucose Random 109 mg/dL (60-115); Sodium 138 mmol/L (135-145); Total Protein 6.4 g/dL (6.5-8.0)
[2025-02-27 20:45] LABS: B Type Natriuretic Peptide 1186 pg/mL (<100)
[2025-02-27 20:46] LABS: Troponin-I High Sensitivity 26.4 ng/L (<3.5-35.0)
[2025-02-27 20:59] LABS: Influenza A PCR NEGATIVE (Negative); Influenza B PCR NEGATIVE (Negative); Resp Syncy Virus RNA Qual PCR NEGATIVE (Negative); SARS COV2 PCR INHOUSE NEGATIVE (Negative)
[2025-02-27 23:08] VITALS: PULSE 63; RESP 17; O2SAT 91
[2025-02-27 23:24] VITALS: BP 137/91
[2025-02-27] MEDS: Furosemide 20 MG/2 ML VIAL 10 MG IVPUSH (23:24)
--- NOTE | 2025-02-27 23:28 | ED_ITS ---
HPI - SOB/Dyspnea General Chief Complaint: Dyspnea Stated Complaint: sob, 80% on RA, 15lpm on nrb 93% Time Seen by Provider: 02/27/25 19:57 Source: patient and EMS Mode of arrival: EMS Limitations: no limitations History of Present Illness ED Provider: Dr. Priya Leal HPI Narrative: Patient comes to the emergency room complaining of shortness of breath. Patient states that he has noticed that over last week or so, he has gained a lot of water weight and his legs are significantly swollen which has never happened before. Patient denies any chest pain. Patient states that he has pulmonary hypertensio. To his knowledge, patient does not have any asthma, COPD or CHF. Patient is not a smoker. Patient uses CPAP at bedtime. Not oxygen dependent. Patient states that he is compliant with his medication, takes Eliquis for atrial fibrillation. Per EMS, patient's oxygen saturation was initially 80% on room air, patient was put on CPAP Related Data Home Medications ?Medication ?Instructions ?Recorded ?Confirmed CPAP (CPAP Machine/Device) 11/19/23 Oxygen Home Use 11/19/23 albuterol sulfate 90 mcg/actuation inhalation 11/19/23 aerosol inhaler allopurinol 100 mg tablet 100 mg PO DAILY 11/19/23 apixaban 5 mg tablet (Eliquis) 5 mg PO BID 11/19/23 atorvastatin 40 mg tablet 40 mg PO DAILY 11/19/23 bupropion HCl 200 mg tablet,12 hr 200 mg PO BID 11/19/23 sustained-release buspirone 30 mg tablet 30 mg PO BID 11/19/23 chlorthalidone 25 mg tablet 25 mg PO DAILY 11/19/23 cholecalciferol (vitamin D3) 25 25 mcg PO DAILY 11/19/23 mcg (1,000 unit) capsule coenzyme Q10 100 mg tablet 200 mg PO DAILY 11/19/23 diltiazem HCl 120 mg 120 mg PO DAILY 11/19/23 capsule,extended release 24 hr, controlled (DILT-XR) fluoxetine 20 mg capsule 40 mg PO QAM 11/19/23 multivitamin 1 tab PO DAILY 11/19/23 olmesartan 40 mg tablet 40 mg PO DAILY 11/19/23 amlodipine 5 mg tablet 5 mg PO BID 04/15/24 Previous Rx's ?Medication ?Instructions ?Recorded furosemide 20 mg tablet (Lasix) 20 mg PO DAILY 3 days #3 tabs 03/26/25 Allergies Allergy/AdvReac Type Severity Reaction Status Date / Time codeine AdvReac Severe Dizziness Verified 02/27/25 20:09 poison bashir extract AdvReac Severe Nausea Verified 02/27/25 20:09 Review of Systems 2 Review of Systems: Constitutional : No Weight loss, No Fever, No Chills, No Night Sweats, No Fatigue, No Malaise ENT/Mouth : No Hearing loss, No Ear Pain, No Nasal Congestion, No Sinus Pain, No Hoarseness, No sore throat, No Rhinorrhea, No Swallowing Difficulty Eyes: No Eye Pain, No Swelling, No Redness, No Foreign Body, No Discharge, No Vision Changes Cardiovascular : No Chest Pain, complaining of orthopnea, shortness of breath, worsening lower extremity edema new onset Respiratory : Complaining of shortness of breath, denies wheezing Gastrointestinal : No Nausea, No Vomiting, No Diarrhea, No Constipation, No abdominal Pain, No Hematochezia, No Melena Genitourinary : no irregular bleeding, No Dysuria, No Urinary Frequency, No Hematuria, No Urinary Incontinence, No Urgency, No Flank Pain, No Urinary Flow Changes, No Hesitancy Musculoskeletal : No joint pain, No Myalgias, No Joint Swelling Skin : No Skin Lesions, No rash Neuro : No Weakness, No Numbness, No Paresthesias, No Loss of Consciousness, No Dizziness, No Headache Psych : No Anxiety/Panic, No Depression, No SI/HI/AH/VH, No Social Issues, Heme/Lymph: No Bruising, No Bleeding,No Lymphadenopathy Endocrine : No Polyuria, No Polydipsia, No Temperature Intolerance [facility] Past Medical History Medical History Overweight Pulmonary hypertension PARRIS (obstructive sleep apnea) Chronic respiratory failure COPD (chronic obstructive pulmonary disease) Allergy Social History Social History Patient Tobacco Use Status: Former Tobacco user Tobacco use type: Cigarette Smoked in Last 30 Days: No Use of substances other than those prescribed or required for medical reasons: No Advance Directives: Yes Advance Directives on File: Yes Advance Directives Date on File: 02/26/24 Physical Exam 2 Vital Signs: Vital Signs: Last Vital Signs Pulse 66 02/27/25 20:00 Resp 17 02/27/25 23:08 BP 103/55 L 02/27/25 23:53 Pulse Ox 92 02/27/25 20:00 O2 Del Method CPAP 02/27/25 20:00 BMI result Body Mass Index 59.9 Const: Other: Appearance: Alert. Oriented X3. No acute distress. Eyes: Pupils equal, round and reactive to light. ENT: Pharynx normal. Neck: Normal inspection. Neck supple. No lymph nodes noted. No crepitus CVS: Normal heart rate and rhythm. Pulses normal. Normal S1 and S2 Respiratory: In respiratory distress, tachypneic, diminished bilateral sounds, no wheezing, bilateral crackles Abdomen: Soft and nontender. No rigidity. No distention. Skin: Skin warm and dry. Normal skin color. Normal skin turgor. Extremities: +3 pitting edema bilaterally from toes to knees . No Lacerations. No Rash Neuro: Oriented X 3. No motor deficit. No sensory deficit. Moving all extremities. No slurred speech. CN 2 through 12 grossly intact Psych: calm, cooperative, normal affect Course Course Course Narrative: Patient arrived on CPAP, patient was initially on 15 L of oxygen according to EMS. Patient states that the CPAP is helping him breathe better. Patient uses CPAP at home. Patient takes blood thinners for atrial fibrillation. All of patient's labs and imaging pending. Patient denies any reason URI symptoms. Medications Administered Discontinued Medications Generic Name Dose Route Start Last Admin Trade Name Freq PRN Reason Stop Dose Admin Furosemide 10 mg 02/27/25 23:17 02/27/25 23:24 Furosemide 20 Mg/2 Ml Vial IVPUSH 02/27/25 23:18 10 mg ONCE ONE Administration Protocol Furosemide 40 mg 02/27/25 23:30 02/27/25 23:53 Furosemide 40 Mg/4 Ml Vial IVPUSH 02/27/25 23:31 40 mg ONCE ONE Administration Protocol Medical Decision Making Medical Decision Making [facility] Narrative: My interpretation of labs: No significant abnormality in patient's hematology, venous blood gases within normal limits, no significant abnormality in patient's chemistry, normal troponin, BNP is significantly elevated compared to previous 1, today 1186. Serology negative for influenza COVID and RSV. Chest x-ray today shows cardiomegaly and pulmonary vascular congestion. Patient was given IV Lasix. Patient states that he feels much better on CPAP and it is bedtime, so we will keep his CPAP on. I discussed the patient with Dr. Hogan, patient being admitted. Patient was informed of the plan, patient is agreeable Differential Diagnosis Differential Diagnoses: The differential diagnosis associated with the presentation includes (As above) Admission/Observation Consideration of admission/observation: Escalation of care including admission/observation considered Consult Healthcare Provider Management of the patient was discussed with: Hospitalist Lab Data [facility] Lab Attestation statement: I reviewed the patient's lab results. 02/27/25 20:17 02/27/25 20:17 Labs: Lab Results 02/27/25 02/27/25 02/27/25 Range/Units 20:16 20:17 20:22 WBC 10.9 H (4.8-10.8) X10*3/uL RBC 4.06 L (4.60-5.80) X10*6/uL Hgb 13.1 L (14.0-18.0) g/dl Hct 39.8 L (42.0-52.0) % MCV 98.0 (80.0-98.0) fL MCH 32.3 (27.0-33.0) pg MCHC 32.9 (31.0-36.0) g/dl RDW 15.5 (11.0-16.0) % Plt Count 208 (160-400) X10*3/uL MPV 8.8 L (9.4-12.4) fL Immature Gran % (Auto) 0.6 H (0.0-0.4) % Neut % (Auto) 85.0 H (45-73) % Lymph % (Auto) 6.2 L (20-40) % [place] % (Auto) 7.3 (2-11) % Eos % (Auto) 0.5 (0-4) % Baso % (Auto) 0.4 (0-2) % Lymph # (Auto) 0.7 L (1.2-4.9) X10*3/uL [place] # (Auto) 0.8 (0.1-1.2) X10*3/uL Eos # (Auto) 0.1 (0.0-0.4) X10*3/uL Baso # (Auto) 0.0 (0.0-0.2) X10*3/uL Abs Immat Gran (auto) 0.06 H (0.00-0.03) X10*3/uL Absolute Neuts (auto) 9.3 H (2.0-8.3) x10*3/uL Absolute Nucleated RBC 0.000 (0.0-0.012) X10*3/uL Nucleated RBC % (auto) 0.0 (0.0-0.2) /100WBC VBG pH 7.41 (7.32-7.43) VBG pCO2 39 mmHg VBG pO2 87 mmHg VBG HCO3 25 (22-26) mmol/L VBG O2 Saturation 97.0 % VBG Base Excess 0.9 mmol/L Sodium 138 (135-145) mmol/L Potassium 4.0 (3.3-5.1) mmol/L Chloride 104 (96-108) mmol/L Carbon Dioxide 25 (22-29) mmol/L Anion Gap 13 (12-20) BUN 35 H (9-16) mg/dL Creatinine 1.16 (0.5-1.4) mg/dL Estim Creat Clear Calc 86.9 Estimated GFR > 60 Random Glucose 109 (60-115) mg/dL Calcium 8.8 D (8.4-10.2) mg/dL Total Bilirubin 0.6 (0.0-1.0) mg/dL AST 31 (5-37) U/L ALT 18 (0-40) U/L Alkaline Phosphatase 92 (39-117) U/L Troponin I High Sens 26.4 (<3.5-35.0) ng/L B-Natriuretic Peptide 1186 H (<100) pg/mL Total Protein 6.4 L (6.5-8.0) g/dL Albumin 3.4 L (3.5-5.0) g/dL Influenza Type A (PCR) NEGATIVE (Negative) Influenza Type B (PCR) NEGATIVE (Negative) RSV RNA Qual (PCR) NEGATIVE (Negative) SARS-CoV-2 RNA (RT-PCR) NEGATIVE (Negative) Independent Interpretation I performed an independent interpretation of an: Plain X-Ray Radiology Impression Discussion of test interpretation with radiology: I have reviewed the radiologist's reading. Radiologist Impression: The study is mildly limited by large body habitus. There appears to be pulmonary vascular congestion similar to the prior study. Lungs appear otherwise clear. Enlargement of the cardiac silhouette appears stable. IMPRESSION: Stable cardiomegaly and pulmonary vascular congestion Independent Historian Clinical information obtained from an independent historian. History obtained from or confirmed by: EMS Critical Care Time Critical Care Time Critical Care Time: Yes Total Critical Care Time: 60 Attestation: I have personally provided critical care time. Time includes review of lab data, radiology results, discussion with consultants, and monitoring for potential decompensation. Intervention performed as documented. Discharge Plan Discharge Clinical Impression: New onset of congestive heart failure Patient Disposition: Admitted As Inpatient
[2025-02-27 23:53] VITALS: BP 103/55
[2025-02-27] MEDS: Furosemide 40 MG/4 ML VIAL IVPUSH (23:53)
[2025-02-28] VITALS (9 sets, daily range): BP systolic 107–135; BP diastolic 63–89; PULSE 65–80; RESP 15–21; TEMP 36.1–36.6; O2SAT 85–94; BMI 58.1
--- NOTE | 2025-02-28 00:01 | P.HPHOSP_ITS ---
History of Present Illness Date of Service: 02/28/25 Chief Complaint: Dyspnea This is a 69-year-old male with pertinent history of PARRIS on CPAP, chronic hypoxemic respiratory failure due to COPD, pulmonary hypertension, mood disorder, gout, atrial fibrillation on anticoagulation, hypertension who presents to the emergency department for evaluation of dyspnea. Patient states over the last few days he has been having shortness of breath which is worse with ambulation. Also noticed lower extremity swelling. No change in cough or wheezing. Patient states as he was about to go to bed on the day of presentation, he got severely short of breath which was not relieved with the home inhalers. Patient was put on diuretics previously as an outpatient but has no history of CHF that he knows of. Does use CPAP at bedtime. No fever, chills, chest pain, palpitations, abdominal pain, changes in urinary or bowel habits. In the emergency department, BNP found to be elevated and imaging with cardiomegaly and pulmonary vascular congestion. Review of Systems 2 Constitutional: Constitutional: Reports fatigue Cardiovascular: Cardiovascular: Reports dyspnea on exertion and Reports orthopnea Respiratory: Respiratory: Reports dyspnea on exertion Gastrointestinal: Gastrointestinal: Reports no additional gastrointestinal complaints Genitourinary: Genitourinary: Reports no additional male genitourinary complaints Endocrine: Endocrine: Reports fatigue [facility] Medical History Overweight Pulmonary hypertension PARRIS (obstructive sleep apnea) Chronic respiratory failure COPD (chronic obstructive pulmonary disease) Allergy Pertinent family history: No family history of early CAD Social History Patient Tobacco Use Status: Former Tobacco user Tobacco use type: Cigarette Smoked in Last 30 Days: No Use of substances other than those prescribed or required for medical reasons: No Advance Directives: Yes Advance Directives on File: Yes Advance Directives Date on File: 02/26/24 Meds Allergies Allergy/AdvReac Type Severity Reaction Status Date / Time codeine AdvReac Severe Dizziness Verified 02/27/25 20:09 poison bashir extract AdvReac Severe Nausea Verified 02/27/25 20:09 Home Medications ?Medication ?Instructions ?Recorded ?Confirmed ?Last Taken ?Type CPAP (CPAP Machine/Device) 11/19/23 Unknown History Oxygen Home Use 11/19/23 Unknown History albuterol sulfate 90 mcg/actuation inhalation 11/19/23 Unknown History aerosol inhaler allopurinol 100 mg tablet 100 mg PO DAILY 11/19/23 Unknown History apixaban 5 mg tablet (Eliquis) 5 mg PO BID 11/19/23 Unknown History atorvastatin 40 mg tablet 40 mg PO DAILY 11/19/23 Unknown History bupropion HCl 200 mg tablet,12 hr 200 mg PO BID 11/19/23 Unknown History sustained-release buspirone 30 mg tablet 30 mg PO BID 11/19/23 Unknown History chlorthalidone 25 mg tablet 25 mg PO DAILY 11/19/23 Unknown History cholecalciferol (vitamin D3) 25 25 mcg PO DAILY 11/19/23 Unknown History mcg (1,000 unit) capsule coenzyme Q10 100 mg tablet 200 mg PO DAILY 11/19/23 Unknown History diltiazem HCl 120 mg 120 mg PO DAILY 11/19/23 Unknown History capsule,extended release 24 hr, controlled (DILT-XR) fluoxetine 20 mg capsule 40 mg PO QAM 11/19/23 Unknown History multivitamin 1 tab PO DAILY 11/19/23 Unknown History olmesartan 40 mg tablet 40 mg PO DAILY 11/19/23 Unknown History amlodipine 5 mg tablet 5 mg PO BID 04/15/24 Unknown History Physical Exam 2 Vital Signs and Narrative: Vital Signs: Last Vital Signs Pulse 66 02/27/25 20:00 Resp 17 02/27/25 23:08 BP 103/55 L 02/27/25 23:53 Pulse Ox 92 02/27/25 20:00 O2 Del Method CPAP 02/27/25 20:00 BMI result Body Mass Index 59.9 Middle-aged male lying in bed in mild distress on NIV Neck supple Irregularly irregular, S1-S2 heard Bilateral crackles appreciated Abdomen soft nontender, no guarding, no rigidity Patient is awake, alert and oriented to self, place, time and person ; no focal motor deficit Psych: Normal mood Bilateral pedal edema present Results Labs 02/27/25 20:17 02/27/25 20:17 Labs: Laboratory Results - last 24 hr 02/27/25 02/27/25 02/27/25 20:16 20:17 20:22 MCV 98.0 MCH 32.3 MCHC 32.9 RDW 15.5 Plt Count 208 MPV 8.8 L Immature Gran % (Auto) 0.6 H Neut % (Auto) 85.0 H Lymph % (Auto) 6.2 L [place] % (Auto) 7.3 Eos % (Auto) 0.5 Baso % (Auto) 0.4 Lymph # (Auto) 0.7 L [place] # (Auto) 0.8 Eos # (Auto) 0.1 Baso # (Auto) 0.0 Abs Immat Gran (auto) 0.06 H Absolute Neuts (auto) 9.3 H Absolute Nucleated RBC 0.000 Nucleated RBC % (auto) 0.0 VBG pH 7.41 VBG pCO2 39 VBG pO2 87 VBG HCO3 25 VBG O2 Saturation 97.0 VBG Base Excess 0.9 Anion Gap 13 Estim Creat Clear Calc 86.9 Estimated GFR > 60 Random Glucose 109 Calcium 8.8 D Total Bilirubin 0.6 AST 31 ALT 18 Alkaline Phosphatase 92 B-Natriuretic Peptide 1186 H Total Protein 6.4 L Albumin 3.4 L Influenza Type A (PCR) NEGATIVE Influenza Type B (PCR) NEGATIVE RSV RNA Qual (PCR) NEGATIVE SARS-CoV-2 RNA (RT-PCR) NEGATIVE Assessment and Plan (1) Decompensated heart failure: Status: Acute Plan This is a 69-year-old male with pertinent history of PARRIS on CPAP, chronic hypoxemic respiratory failure due to COPD, pulmonary hypertension, mood disorder, gout, atrial fibrillation on anticoagulation, hypertension who presents to the emergency department for evaluation of dyspnea. #. Acute decompensated congestive heart failure, unknown EF: Will admit patient with IV diuresis. Strict I's and O's. Low-salt diet. Obtaining transthoracic echocardiogram. #. Hypertension: Continue home antihypertensives #. Chronic hypoxemic respiratory failure due to COPD: Continue home baseline supplemental oxygen. No exacerbation during admission. Continue home inhalers #. Mood disorder: Continue home mood stabilizers #. Atrial fibrillation: Rate controlled in the ER. On diltiazem and Eliquis #. PARRIS: Continue CPAP at bedtime #. Super morbid obesity: Counseled regarding diet and exercise Med rec pending DVT prophylaxis: Eliquis Full code. Discussed with patient at bedside Admit as inpatient and will require two night minimum hospital stay for IV diuresis, monitoring of hemodynamics (as above), which is not possible in a lesser acute setting. Quality Stroke Does the patient have a stroke diagnosis?: No VTE Prior VTE?: No VTE Risk Level:: Medical - moderate - high VTE Device Contraindication: Treatment Not Indicated VTE Drug Contraindication: N/A - Med Ordered
--- NOTE | 2025-02-28 00:29 | PC.NURSE ---
this rn assumed care of pt @ 2300 pt medicated according to [facility] special education resource teacher assisted pt with urinal and bed [place] use skin on back side appeared intact odor notices with some reddened area around groin and skin folds dr romero made aware
[2025-02-28] MEDS: Nystatin Powder 15 GM BOTTLE 1 APPL TOPICAL ×4 (01:35→20:41)
--- NOTE | 2025-02-28 04:47 | PC.NURSE ---
pt cpap device alarming this rn found pt on foot of bed wearing no cpap or supplemental o2 pt states needed to sit up. pt repositioned to bed boosted and replaced to cpap rt to bedside
--- NOTE | 2025-02-28 05:02 | PC.NURSE ---
pt removed cpap states i coudn't find my call bar and it got you in hear didn't it charge out clerk aware
[2025-02-28 06:51] LABS: MANUAL DIFF FLAG NO
[2025-02-28 07:05] LABS: Basophils Percent Auto 0.4 % (0-2); Eosinophils Absolute Auto 0.1 X10*3/uL (0.0-0.4); Eosinophils Percent Auto 0.5 % (0-4); Hematocrit 40.7 % (42.0-52.0); Hemoglobin 13.1 g/dl (14.0-18.0); Imm Gran Abs Auto 0.06 X10*3/uL (0.00-0.03); Imm Gran Pct Auto 0.6 % (0.0-0.4); Lymphocytes Absolute Auto 0.6 X10*3/uL (1.2-4.9); Lymphocytes Percent Auto 6.3 % (20-40); Mean Corpuscular HGB Conc 32.2 g/dl (31.0-36.0); Mean Corpuscular Volume 99.3 fL (80.0-98.0); Mean Platelet Volume 9.7 fL (9.4-12.4); Monocytes Absolute Auto 0.7 X10*3/uL (0.1-1.2); Monocytes Percent Auto 7.5 % (2-11); Neutrophils Absolute Auto 8.3 x10*3/uL (2.0-8.3); Neutrophils Percent Auto 84.7 % (45-73); Platelet Count 219 X10*3/uL (160-400); Red Cell Distribution Width 15.5 % (11.0-16.0); White Blood Count 9.8 X10*3/uL (4.8-10.8)
[2025-02-28 07:11] LABS: Anion Gap 13 (12-20); Blood Urea Nitrogen 33 mg/dL (9-16); Calcium 9.3 mg/dL (8.4-10.2); Carbon Dioxide 27 mmol/L (22-29); Chloride 101 mmol/L (96-108); Creatinine Clr Calc Pharmacy 83.7; Estimated Glomerular Filt Rate > 60; Glucose Random 90 mg/dL (60-115); Potassium 3.9 mmol/L (3.3-5.1); Sodium 137 mmol/L (135-145)
[2025-02-28] MEDS: Furosemide 40 MG/4 ML VIAL IVPUSH ×2 (07:42→18:29)
[2025-02-28] MEDS: Apixaban 5 MG TABLET PO ×2 (07:42→20:39)
[2025-02-28] MEDS: 0.9 % Sodium Chloride Flush 3 ML SYRINGE IVFLUSH ×3 (07:43→20:43)
--- NOTE | 2025-02-28 11:29 | PHA.MEDREC ---
Addendum entered by Jacki Conner RPh 02/28/25 12:11: reviewed by [facility] Original Note: Pharmacy Consult ? Medication Reconciliation Pharmacy has completed the medication reconciliation. Spoke to pt who natalia very accurate medication list with him. Of note, claim history states fluoxetine 20 mg 2 caps daily but patient takes it 20 mg BID.
--- NOTE | 2025-02-28 12:22 | MHC.CM.PN ---
IMM 02/28/25 DX New HF Patient lives alone. He receives assist from [facility]: Diabetes Trainer services. DME CPAP, O2 [employer] [employer] [facility] home self care, [facility] will provide transport at discharge.
--- NOTE | 2025-02-28 13:02 | PC.NURSE ---
pt alert and oriented. noted blanchable redness, warmth, and mild itchiness to right elbow. pt reports area has been present for approx. one week. No open areas or drainage. Physician notified.
--- NOTE | 2025-02-28 13:06 | P.CONCA_ITS ---
History of Present Illness History of Present Illness Date of Service: 02/28/25 Requesting physician: Gayathri Hare Chief complaint: Dyspnea Narrative: [age] year gentleman with morbid obesity, COPD, obstructive sleep apnea or pulmonary hypertension and congestive heart failure presenting with shortness of breath and acute decompensated heart failure. He is on CPAP during the time of interview. Denying any significant symptoms. His significant other is in the room who gave most of the history. It appears he was complaining of shortness of breath and was getting short of breath with taking few steps at this led to his presentation to ER. Noted to be in significant heart failure and admitted. Overall has not been doing well for more than a year at this point. Follows with Dr. Irving Joyner at [facility]. [facility] Past Medical History Medical History Overweight Pulmonary hypertension PARRIS (obstructive sleep apnea) Chronic respiratory failure COPD (chronic obstructive pulmonary disease) Allergy Social History Social History Household Members: None Housing: Apartment Do you presently have visiting nurse or other home services: Yes (home health aide 2x/week) Patient Tobacco Use Status: Former Tobacco user Tobacco use type: Cigarette e-Cigarette/Vaping Use: Never Used Second Hand Smoke Exposure: No Substance Use Type: Marijuana Advance Directives Date on File: 02/26/24 service: No Meds Allergies Allergy/AdvReac Type Severity Reaction Status Date / Time codeine AdvReac Severe Dizziness Verified 02/27/25 20:09 poison bashir extract AdvReac Severe Nausea Verified 02/27/25 20:09 Active Medications: Current Medications Acetaminophen (Acetaminophen 325 Mg Tablet) 650 mg PO Q6H PRN PRN Reason: Pain, Mild 1-3,fever,headache Apixaban (Apixaban 5 Mg Tablet) 5 mg PO BID [facility] Last Admin: 02/28/25 07:42 Dose: 5 mg Calcium Carbonate (Calcium Carbonate 750 Mg Tab.Chew) 750 mg PO Q4H PRN PRN Reason: Heartburn Furosemide (Furosemide 40 Mg/4 Ml Vial) 40 mg IVPUSH DAILY [facility]; Protocol Last Admin: 02/28/25 07:42 Dose: 40 mg Magnesium Hydroxide (Milk Of Magnesia 30 Ml Oral.Susp) 30 ml PO DAILY PRN PRN Reason: Constipation Melatonin (Melatonin 3 Mg Tablet) 6 mg PO BEDTIME PRN PRN Reason: Insomnia Nystatin (Nystatin Powder 15 Gm Bottle) 1 appl TOPICAL TID [facility]; Protocol Last Admin: 02/28/25 07:53 Dose: 1 appl Ondansetron HCl (Ondansetron Hcl 4 Mg/2 Ml Vial) 4 mg IVPUSH Q8H PRN PRN Reason: Nausea and Vomiting Sodium Chloride (0.9 % Sodium Chloride Flush 3 Ml Syringe) 3 ml IVFLUSH QSHIFT [facility] Last Admin: 02/28/25 07:43 Dose: 3 ml Home Medications ?Medication ?Instructions ?Recorded ?Confirmed ?Last Taken ?Type CPAP (CPAP Machine/Device) 11/19/23 02/28/25 02/27/25 09:00 History Oxygen Home Use 11/19/23 02/28/25 02/27/25 09:00 History albuterol sulfate 90 mcg/actuation 2 puff inhalation Q6H PRN 11/19/23 02/28/25 Unknown History aerosol inhaler Shortness Of Breath Or Wheezing allopurinol 100 mg tablet 100 mg PO DAILY 11/19/23 02/28/25 02/27/25 09:00 History apixaban 5 mg tablet (Eliquis) 5 mg PO BID 11/19/23 02/28/25 02/27/25 09:00 History atorvastatin 40 mg tablet 40 mg PO DAILY 11/19/23 02/28/25 02/27/25 09:00 History bupropion HCl 200 mg tablet,12 hr 200 mg PO BID 11/19/23 02/28/25 02/27/25 09:00 History sustained-release buspirone 30 mg tablet 30 mg PO BID 11/19/23 02/28/25 02/27/25 09:00 History chlorthalidone 25 mg tablet 25 mg PO DAILY 11/19/23 02/28/25 02/27/25 09:00 History cholecalciferol (vitamin D3) 25 25 mcg PO DAILY 11/19/23 02/28/25 02/27/25 09:00 History mcg (1,000 unit) capsule coenzyme Q10 100 mg tablet 300 mg PO DAILY 11/19/23 02/28/25 02/27/25 09:00 History diltiazem HCl 120 mg 120 mg PO DAILY 11/19/23 02/28/25 02/27/25 09:00 History capsule,extended release 24 hr, controlled (DILT-XR) fluoxetine 20 mg capsule 20 mg PO BID 11/19/23 02/28/25 02/27/25 09:00 History multivitamin 1 tab PO DAILY 11/19/23 02/28/25 02/27/25 09:00 History olmesartan 40 mg tablet 40 mg PO DAILY 11/19/23 02/28/25 02/27/25 09:00 History Physical Exam 2 Vital Signs: Vital Signs: Last Vital Signs Temp 97.3 F 02/28/25 07:35 Pulse 72 02/28/25 07:35 Resp 20 02/28/25 07:35 BP 135/89 02/28/25 07:35 Pulse Ox 91 L 02/28/25 07:35 O2 Del Method Nasal Cannula 02/28/25 07:35 O2 Flow Rate 4 02/28/25 07:35 BMI result Body Mass Index 58.1 GENERAL APPEARANCE: On noninvasive ventilation. In no distress. NECK: no carotid bruit, + jugular venous distention. SKIN: no suspicious lesions, warm and dry. HEART: no murmurs, regular rate and rhythm. LUNGS: clear to auscultation anteriorly. ABDOMEN: soft, nontender. Morbidly obese and bar to percussion in the flanks EXTREMITIES: +2 edema. PERIPHERAL PULSES: equal. NEUROLOGIC: Sleepy but arousable. On noninvasive ventilation. Objective Labs and Meds 02/28/25 06:40 02/28/25 06:40 Lab results: Laboratory Results - last 24 hr 02/27/25 02/27/25 02/27/25 20:16 20:17 20:22 WBC 10.9 H RBC 4.06 L Hgb 13.1 L Hct 39.8 L MCV 98.0 MCH 32.3 MCHC 32.9 RDW 15.5 Plt Count 208 MPV 8.8 L Immature Gran % (Auto) 0.6 H Neut % (Auto) 85.0 H Lymph % (Auto) 6.2 L [place] % (Auto) 7.3 Eos % (Auto) 0.5 Baso % (Auto) 0.4 Lymph # (Auto) 0.7 L [place] # (Auto) 0.8 Eos # (Auto) 0.1 Baso # (Auto) 0.0 Abs Immat Gran (auto) 0.06 H Absolute Neuts (auto) 9.3 H Absolute Nucleated RBC 0.000 Nucleated RBC % (auto) 0.0 VBG pH 7.41 VBG pCO2 39 VBG pO2 87 VBG HCO3 25 VBG O2 Saturation 97.0 VBG Base Excess 0.9 Sodium 138 Potassium 4.0 Chloride 104 Carbon Dioxide 25 Anion Gap 13 BUN 35 H Creatinine 1.16 Estim Creat Clear Calc 86.9 Estimated GFR > 60 Random Glucose 109 Calcium 8.8 D Total Bilirubin 0.6 AST 31 ALT 18 Alkaline Phosphatase 92 Troponin I High Sens 26.4 B-Natriuretic Peptide 1186 H Total Protein 6.4 L Albumin 3.4 L Influenza Type A (PCR) NEGATIVE Influenza Type B (PCR) NEGATIVE RSV RNA Qual (PCR) NEGATIVE SARS-CoV-2 RNA (RT-PCR) NEGATIVE 02/28/25 06:40 WBC 9.8 RBC 4.10 L Hgb 13.1 L Hct 40.7 L MCV 99.3 H MCH 32.0 MCHC 32.2 RDW 15.5 Plt Count 219 MPV 9.7 Immature Gran % (Auto) 0.6 H Neut % (Auto) 84.7 H Lymph % (Auto) 6.3 L [place] % (Auto) 7.5 Eos % (Auto) 0.5 Baso % (Auto) 0.4 Lymph # (Auto) 0.6 L [place] # (Auto) 0.7 Eos # (Auto) 0.1 Baso # (Auto) 0.0 Abs Immat Gran (auto) 0.06 H Absolute Neuts (auto) 8.3 Absolute Nucleated RBC 0.000 Nucleated RBC % (auto) 0.0 VBG pH VBG pCO2 VBG pO2 VBG HCO3 VBG O2 Saturation VBG Base Excess Sodium 137 Potassium 3.9 Chloride 101 Carbon Dioxide 27 Anion Gap 13 BUN 33 H Creatinine 1.18 Estim Creat Clear Calc 83.7 Estimated GFR > 60 Random Glucose 90 Calcium 9.3 Total Bilirubin AST ALT Alkaline Phosphatase Troponin I High Sens B-Natriuretic Peptide Total Protein Albumin Influenza Type A (PCR) Influenza Type B (PCR) RSV RNA Qual (PCR) SARS-CoV-2 RNA (RT-PCR) Assessment and Plan (1) Decompensated heart failure: Status: Acute (2) Pulmonary hypertension: Status: Acute Plan [age] year gentleman with morbid obesity and heart failure presenting with shortness of breath and congestive heart failure. Significantly volume overloaded. Increasing Lasix to 40 mg IV b.i.d.. Adding spironolactone. Low threshold to use Lasix drip and this significantly volume overloaded gentleman. Blood pressure control is reasonable currently. Stop diltiazem. We will follow along with you. Thank you for allowing me to participate in the care of your patient. Please feel free to contact me if you have any questions. Procedures Date of Service Date of Service: 02/28/25
--- NOTE | 2025-02-28 15:05 | HO.PM.IMPN ---
Subjective Subjective Date of Service: 02/28/25 Interval History: seen and examined this morning follow up for respiratory failure sitting up eating, would not stop eating for exam/evaluation; exam limited feels bad but better then on arrival has right arm lump present for >1 week. nonpainful. no fever/chills Review of Systems Review of Systems: Yes all other systems are reviewed and are negative Constitutional Constitutional: Denies fever(s) Cardiovascular Cardiovascular: Denies chest pain Gastrointestinal Gastrointestinal: Denies abdominal pain Physical Exam Vital Signs: Vital Signs: Last Vital Signs Temp 97.3 F 02/28/25 07:35 Pulse 72 02/28/25 07:35 Resp 20 02/28/25 07:35 BP 135/89 02/28/25 07:35 Pulse Ox 91 L 02/28/25 07:35 O2 Del Method Nasal Cannula 02/28/25 07:35 O2 Flow Rate 4 02/28/25 07:35 BMI result Body Mass Index 58.1 Const: General: no acute distress, alert and awake Nutritional Appearance: obese Orientation/consciousness: patient oriented x3 Resp: Other: mild increase in wob Effort & Inspection: able to speak in complete sentences Cardio: Rate: regular rate GI: Inspection: Yes Abdominal panniculus present and Yes obesity Palpation (GI): Soft to palpation Skin: Other: right arm with lump below elbow surrounded by area of erythema, non-tender, no warmth Neuro: General: patient oriented x3, moves all extremities and CN's II-XI intact bilaterally Extrem: Other: b/l lower extremity edema Objective Data Active Medications Acetaminophen (Acetaminophen 325 Mg Tablet) 650 mg PO Q6H PRN PRN Reason: Pain, Mild 1-3,fever,headache Albuterol Sulfate (Albuterol Sulfate 90 Mcg 8 Gm Inhaler) 2 puff INHALE Q6H PRN PRN Reason: Shortness Of Breath Or Wheezing Allopurinol (Allopurinol 100 Mg Tablet) 100 mg PO DAILY [facility] Apixaban (Apixaban 5 Mg Tablet) 5 mg PO BID [facility] Last Admin: 02/28/25 07:42 Dose: 5 mg Documented By: FABI Atorvastatin Calcium (Atorvastatin Calcium 40 Mg Tablet) 40 mg PO DAILY [facility] Bupropion HCl (Bupropion Hcl Xl 300 Mg Tab.Er.24h) 300 mg PO DAILY [facility] Bupropion HCl (Bupropion Hcl Xl 150 Mg Tab.Er.24h) 150 mg PO DAILY [facility] Buspirone HCl (Buspirone Hcl 10 Mg Tablet) 30 mg PO BID [facility] Calcium Carbonate (Calcium Carbonate 750 Mg Tab.Chew) 750 mg PO Q4H PRN PRN Reason: Heartburn Fluoxetine HCl (Fluoxetine Hcl 20 Mg Capsule) 20 mg PO BID [facility] Furosemide (Furosemide 40 Mg/4 Ml Vial) 40 mg IVPUSH BID@0900,1800 [facility]; Protocol Magnesium Hydroxide (Milk Of Magnesia 30 Ml Oral.Susp) 30 ml PO DAILY PRN PRN Reason: Constipation Melatonin (Melatonin 3 Mg Tablet) 6 mg PO BEDTIME PRN PRN Reason: Insomnia Nystatin (Nystatin Powder 15 Gm Bottle) 1 appl TOPICAL TID [facility]; Protocol Last Admin: 02/28/25 07:53 Dose: 1 appl Documented By: FABI Ondansetron HCl (Ondansetron Hcl 4 Mg/2 Ml Vial) 4 mg IVPUSH Q8H PRN PRN Reason: Nausea and Vomiting Sodium Chloride (0.9 % Sodium Chloride Flush 3 Ml Syringe) 3 ml IVFLUSH QSHIFT [facility] Last Admin: 02/28/25 07:43 Dose: 3 ml Documented By: FABI Spironolactone (Spironolactone 25 Mg Tablet) 25 mg PO DAILY [facility]; Protocol Valsartan (Valsartan 160 Mg Tablet) 160 mg PO DAILY [facility] Labs 02/28/25 06:40 02/28/25 06:40 Labs: Laboratory Results - last 24 hr 02/27/25 02/27/25 02/27/25 20:16 20:17 20:22 MCV 98.0 MCH 32.3 MCHC 32.9 RDW 15.5 Plt Count 208 MPV 8.8 L Immature Gran % (Auto) 0.6 H Neut % (Auto) 85.0 H Lymph % (Auto) 6.2 L [place] % (Auto) 7.3 Eos % (Auto) 0.5 Baso % (Auto) 0.4 Lymph # (Auto) 0.7 L [place] # (Auto) 0.8 Eos # (Auto) 0.1 Baso # (Auto) 0.0 Abs Immat Gran (auto) 0.06 H Absolute Neuts (auto) 9.3 H Absolute Nucleated RBC 0.000 Nucleated RBC % (auto) 0.0 VBG pH 7.41 VBG pCO2 39 VBG pO2 87 VBG HCO3 25 VBG O2 Saturation 97.0 VBG Base Excess 0.9 Anion Gap 13 Estim Creat Clear Calc 86.9 Estimated GFR > 60 Random Glucose 109 Calcium 8.8 D Total Bilirubin 0.6 AST 31 ALT 18 Alkaline Phosphatase 92 B-Natriuretic Peptide 1186 H Total Protein 6.4 L Albumin 3.4 L Influenza Type A (PCR) NEGATIVE Influenza Type B (PCR) NEGATIVE RSV RNA Qual (PCR) NEGATIVE SARS-CoV-2 RNA (RT-PCR) NEGATIVE 02/28/25 06:40 MCV 99.3 H MCH 32.0 MCHC 32.2 RDW 15.5 Plt Count 219 MPV 9.7 Immature Gran % (Auto) 0.6 H Neut % (Auto) 84.7 H Lymph % (Auto) 6.3 L [place] % (Auto) 7.5 Eos % (Auto) 0.5 Baso % (Auto) 0.4 Lymph # (Auto) 0.6 L [place] # (Auto) 0.7 Eos # (Auto) 0.1 Baso # (Auto) 0.0 Abs Immat Gran (auto) 0.06 H Absolute Neuts (auto) 8.3 Absolute Nucleated RBC 0.000 Nucleated RBC % (auto) 0.0 VBG pH VBG pCO2 VBG pO2 VBG HCO3 VBG O2 Saturation VBG Base Excess Anion Gap 13 Estim Creat Clear Calc 83.7 Estimated GFR > 60 Random Glucose 90 Calcium 9.3 Total Bilirubin AST ALT Alkaline Phosphatase B-Natriuretic Peptide Total Protein Albumin Influenza Type A (PCR) Influenza Type B (PCR) RSV RNA Qual (PCR) SARS-CoV-2 RNA (RT-PCR) Assessment and Plan (1) Decompensated heart failure: Status: Acute (2) Pulmonary hypertension: Status: Acute (3) PARRIS (obstructive sleep apnea): Status: Acute (4) Chronic respiratory failure: Status: Acute Plan This is a 69-year-old male with pertinent history of PARRIS on CPAP, chronic hypoxemic respiratory failure due to COPD, pulmonary hypertension, mood disorder, gout, atrial fibrillation on anticoagulation, hypertension who presents to the emergency department for evaluation of dyspnea. Acute decompensated congestive heart failure with preserved EF last echo from 2021 with preserved EF; pulmonary hypertension, right heart dysfunction, moderate Low-salt diet Spironolactone added echo pending IV lasix, increased to BID, follow Is&Os Right arm swelling, erythema non-tender, no warmth; no fever or leukocytosis soft tissue US pending Hypertension: Continue home Arb Hold diltiazem Chlorthalidone on hold as spironolactone started Chronic hypoxemic respiratory failure due to COPD: Continue home baseline supplemental oxygen 3-6L Continue home inhalers Mood disorder: Continue home mood stabilizers Atrial fibrillation: Rate controlled Continue Eliquis for anticoagulation Hold diltiazem as per Cardiology recommendation PARRIS: Continue CPAP at bedtime Super morbid obesity: BMI 58.1 Counseled regarding diet and exercise. Contributing to respiratory difficulties DVT prophylaxis: Eliquis Full code. Requires ongoing hospital stay for for IV diuresis, monitoring of hemodynamics (as above), which is not possible in a lesser acute setting. Quality Stroke Does the patient have a stroke diagnosis?: No VTE Prior VTE?: No VTE Risk Level:: Medical - moderate - high VTE Device Contraindication: Treatment Not Indicated VTE Drug Contraindication: N/A - Med Ordered
[2025-02-28] MEDS: FLUoxetine HCl 20 MG CAPSULE PO (20:39)
[2025-02-28] MEDS: busPIRone HCl 10 MG TABLET 30 MG PO (20:39)
[2025-03-01 03:39] VITALS: BP 133/82; PULSE 74; RESP 20; TEMP 36.2; O2SAT 93
[2025-03-01 06:57] LABS: Anion Gap 14 (12-20); Blood Urea Nitrogen 37 mg/dL (9-16); Calcium 9.2 mg/dL (8.4-10.2); Carbon Dioxide 30 mmol/L (22-29); Chloride 99 mmol/L (96-108); Estimated Glomerular Filt Rate 55; Glucose Random 85 mg/dL (60-115); Potassium 3.8 mmol/L (3.3-5.1); Sodium 139 mmol/L (135-145)
[2025-03-01 08:00] VITALS: BP 124/85; PULSE 68; RESP 20; TEMP 36.2; O2SAT 96
[2025-03-01] MEDS: buPROPion HCl XL 150 MG TAB.ER.24H PO (09:08)
[2025-03-01] MEDS: buPROPion HCl XL 300 MG TAB.ER.24H PO (09:08)
[2025-03-01] MEDS: Apixaban 5 MG TABLET PO ×2 (09:08→19:55)
[2025-03-01] MEDS: allopurinoL 100 MG TABLET PO (09:08)
[2025-03-01] MEDS: Atorvastatin Calcium 40 MG TABLET PO (09:08)
[2025-03-01] MEDS: Furosemide 40 MG/4 ML VIAL IVPUSH ×2 (09:09→17:20)
[2025-03-01] MEDS: Spironolactone 25 MG TABLET PO (09:09)
[2025-03-01] MEDS: FLUoxetine HCl 20 MG CAPSULE PO ×2 (09:09→19:55)
[2025-03-01] MEDS: busPIRone HCl 10 MG TABLET 30 MG PO ×2 (09:09→19:55)
[2025-03-01] MEDS: Valsartan 160 MG TABLET PO (09:10)
[2025-03-01] MEDS: 0.9 % Sodium Chloride Flush 3 ML SYRINGE IVFLUSH ×3 (09:22→19:55)
[2025-03-01] MEDS: Nystatin Powder 15 GM BOTTLE 1 APPL TOPICAL ×3 (09:31→19:57)
--- NOTE | 2025-03-01 11:51 | PM.PNCARD ---
Subjective Subjective Date of Service: 03/01/25 Interval history: Sleeping on CPAP. Physical Exam Vital Signs: Last Vital Signs Temp 97.1 F 03/01/25 08:00 Pulse 68 03/01/25 08:00 Resp 20 03/01/25 08:00 BP 124/85 03/01/25 08:00 Pulse Ox 96 03/01/25 08:00 O2 Del Method CPAP 03/01/25 08:00 O2 Flow Rate 8 03/01/25 03:39 BMI result Body Mass Index 58.1 GENERAL APPEARANCE: On noninvasive ventilation. In no distress. SKIN: no suspicious lesions, warm and dry. HEART: no murmurs, regular rate and rhythm. LUNGS: clear to auscultation anteriorly. ABDOMEN: soft, nontender. Morbidly obese and dull to percussion in the flanks EXTREMITIES: +2 edema. PERIPHERAL PULSES: equal. NEUROLOGIC: Sleepy but arousable. On noninvasive ventilation. Objective Labs and Meds 02/28/25 06:40 03/01/25 06:04 Lab results: Laboratory Results - last 24 hr 03/01/25 06:04 Hold Purple Top SEE NOTE Sodium 139 Potassium 3.8 Chloride 99 Carbon Dioxide 30 H Anion Gap 14 BUN 37 H Creatinine 1.30 Estim Creat Clear Calc 76.0 Estimated GFR 55 Random Glucose 85 Calcium 9.2 Progress Note: A&P Assessment and plan (1) Decompensated heart failure: Status: Acute Plan [age] year gentleman with permanent atrial fibrillation, morbid obesity and diastolic heart failure. He has pulmonary hypertension and sleep apnea. Significant volume overload. Continue diuretics. Stop the diltiazem. Blood pressure well controlled on valsartan. Added spironolactone [address] mg daily[address] Patient of Dr. Irving Joyner. Thank you for allowing me to participate in the care of your patient. Please feel free to contact me if you have any questions. Time Spent With Patient Time: Total time managing care of this patient today ____ minutes. Progress Note: Quality Stroke Does the patient have a stroke diagnosis?: No Procedures Date of Service Date of Service: 03/01/25
--- NOTE | 2025-03-01 14:36 | P.PNIM_ITS ---
Subjective Subjective Date of Service: 03/01/25 Interval History: seen and examined this morning follow up Physical Exam 2 Vital Signs: Vital Signs: Last Vital Signs Temp 97.1 F 03/01/25 08:00 Pulse 68 03/01/25 08:00 Resp 20 03/01/25 08:00 BP 124/85 03/01/25 08:00 Pulse Ox 96 03/01/25 08:00 O2 Del Method CPAP 03/01/25 08:00 O2 Flow Rate 8 03/01/25 03:39 BMI result Body Mass Index 58.1 Const: General: no acute distress, alert and awake Nutritional Appearance: obese Orientation/consciousness: patient oriented x3 Resp: Other: mild increase in wob Effort & Inspection: able to speak in complete sentences Cardio: Rate: regular rate GI: Inspection: Yes Abdominal panniculus present and Yes obesity Palpation (GI): Soft to palpation Skin: Other: right arm with lump below elbow surrounded by area of erythema, non-tender, no warmth Neuro: General: patient oriented x3, moves all extremities and CN's II-XI intact bilaterally Extrem: Other: b/l lower extremity edema Objective Data Active Medications Acetaminophen (Acetaminophen 325 Mg Tablet) 650 mg PO Q6H PRN PRN Reason: Pain, Mild 1-3,fever,headache Albuterol Sulfate (Albuterol Sulfate 90 Mcg 8 Gm Inhaler) 2 puff INHALE Q6H PRN PRN Reason: Shortness Of Breath Or Wheezing Allopurinol (Allopurinol 100 Mg Tablet) 100 mg PO DAILY [facility] Last Admin: 03/01/25 09:08 Dose: 100 mg Documented By: ROJELIOMORP Apixaban (Apixaban 5 Mg Tablet) 5 mg PO BID [facility] Last Admin: 03/01/25 09:08 Dose: 5 mg Documented By: PODMORP Atorvastatin Calcium (Atorvastatin Calcium 40 Mg Tablet) 40 mg PO DAILY [facility] Last Admin: 03/01/25 09:08 Dose: 40 mg Documented By: PODMORP Bupropion HCl (Bupropion Hcl Xl 300 Mg Tab.Er.24h) 300 mg PO DAILY [facility] Last Admin: 03/01/25 09:08 Dose: 300 mg Documented By: PODMORP Bupropion HCl (Bupropion Hcl Xl 150 Mg Tab.Er.24h) 150 mg PO DAILY [facility] Last Admin: 03/01/25 09:08 Dose: 150 mg Documented By: PODMORP Buspirone HCl (Buspirone Hcl 10 Mg Tablet) 30 mg PO BID [facility] Last Admin: 03/01/25 09:09 Dose: 30 mg Documented By: PODMORP Calcium Carbonate (Calcium Carbonate 750 Mg Tab.Chew) 750 mg PO Q4H PRN PRN Reason: Heartburn Fluoxetine HCl (Fluoxetine Hcl 20 Mg Capsule) 20 mg PO BID [facility] Last Admin: 03/01/25 09:09 Dose: 20 mg Documented By: PODMORP Furosemide (Furosemide 40 Mg/4 Ml Vial) 40 mg IVPUSH BID@0900,1800 [facility]; Protocol Last Admin: 03/01/25 09:09 Dose: 40 mg Documented By: KATIUSKARP Magnesium Hydroxide (Milk Of Magnesia 30 Ml Oral.Susp) 30 ml PO DAILY PRN PRN Reason: Constipation Melatonin (Melatonin 3 Mg Tablet) 6 mg PO BEDTIME PRN PRN Reason: Insomnia Multi-Ingred Cream/Lotion/Oil/Oint (Mineral Oil/Petrolatum,White 106 Gm Tube) 1 appl TOPICAL BID [facility]; Protocol Nystatin (Nystatin Powder 15 Gm Bottle) 1 appl TOPICAL TID [facility]; Protocol Last Admin: 03/01/25 09:31 Dose: 1 appl Documented By: ROJELIOMORP Ondansetron HCl (Ondansetron Hcl 4 Mg/2 Ml Vial) 4 mg IVPUSH Q8H PRN PRN Reason: Nausea and Vomiting Sodium Chloride (0.9 % Sodium Chloride Flush 3 Ml Syringe) 3 ml IVFLUSH QSHIFT [facility] Last Admin: 03/01/25 09:22 Dose: 3 ml Documented By: ROJELIOMORP Spironolactone (Spironolactone 25 Mg Tablet) 25 mg PO DAILY [facility]; Protocol Last Admin: 03/01/25 09:09 Dose: 25 mg Documented By: PODMORP Valsartan (Valsartan 160 Mg Tablet) 160 mg PO DAILY [facility] Last Admin: 03/01/25 09:10 Dose: 160 mg Documented By: EULOGIO Labs 02/28/25 06:40 03/01/25 06:04 Labs: Laboratory Results - last 24 hr 03/01/25 06:04 Hold Purple Top SEE NOTE Anion Gap 14 Estim Creat Clear Calc 76.0 Estimated GFR 55 Random Glucose 85 Calcium 9.2 Assessment and Plan (1) Pulmonary hypertension: Status: Acute (2) PARRIS (obstructive sleep apnea): Status: Acute (3) COPD (chronic obstructive pulmonary disease): Status: Acute (4) New onset of congestive heart failure: Status: Acute Plan This is a 69-year-old male with pertinent history of PARRIS on CPAP, chronic hypoxemic respiratory failure due to COPD, pulmonary hypertension, mood disorder, gout, atrial fibrillation on anticoagulation, hypertension who presents to the emergency department for evaluation of dyspnea. Acute decompensated congestive heart failure with preserved EF last echo from 2021 with preserved EF; pulmonary hypertension, right heart dysfunction, moderate Low-salt diet Spironolactone added echo pending IV lasix, increased to BID, follow Is&Os Right arm swelling, erythema ?olecranon bursitis non-tender, no warmth; no fever or leukocytosis. has full ROM of elbow soft tissue US with no drainable fluid collection elbow xray unremarkable pt declines antibiotics Hypertension: Continue home Arb (changed to diovan inpatient) Hold diltiazem per cardiology Chlorthalidone on hold as spironolactone started Chronic hypoxemic respiratory failure due to COPD: Continue home baseline supplemental oxygen 3-6L Continue home inhalers Mood disorder: Continue home mood stabilizers Atrial fibrillation: Rate controlled Continue Eliquis for anticoagulation Hold diltiazem as per Cardiology recommendation PARRIS: Continue CPAP at bedtime Super morbid obesity: BMI 58.1 Counseled regarding diet and exercise. Contributing to respiratory difficulties DVT prophylaxis: Eliquis Full code. Requires ongoing hospital stay for for IV diuresis, monitoring of hemodynamics (as above), which is not possible in a lesser acute setting. Quality Stroke Does the patient have a stroke diagnosis?: No VTE Prior VTE?: No VTE Risk Level:: Medical - moderate - high VTE Device Contraindication: Treatment Not Indicated VTE Drug Contraindication: N/A - Med Ordered
[2025-03-01] MEDS: Mineral Oil/Petrolatum,White 106 GM Tube 1 APPL TOPICAL ×2 (14:50→19:57)
[2025-03-01 16:04] VITALS: BP 110/68; PULSE 80; RESP 20; TEMP 36.1; O2SAT 90
[2025-03-01 19:35] VITALS: BP 115/71; PULSE 75; RESP 20; TEMP 36.7; O2SAT 88
[2025-03-01 22:17] VITALS: PULSE 72; RESP 25; O2SAT 93
--- NOTE | 2025-03-02 03:41 | PC.NURSE ---
Pt seen on bed alert and oriented, denies any pain, tolerating O2 at 4L/min via NC, noted with SOB on exertion with every commode use including circumural cyanosis, relieved with rest, assisted with ADLs.
[2025-03-02 03:44] VITALS: BP 120/62; PULSE 75; RESP 20; TEMP 36.4; O2SAT 89
[2025-03-02 06:26] LABS: Anion Gap 14 (12-20); Blood Urea Nitrogen 34 mg/dL (9-16); Calcium 9.4 mg/dL (8.4-10.2); Carbon Dioxide 33 mmol/L (22-29); Chloride 97 mmol/L (96-108); Creatinine Clr Calc Pharmacy 81.7; Estimated Glomerular Filt Rate 59; Glucose Random 87 mg/dL (60-115); Sodium 140 mmol/L (135-145)
--- NOTE | 2025-03-02 07:00 | CA_ITS ---
Transthoracic Echocardiogram Patient (Last, First, Middle): Alan Nava, Gender: Male Date of : 1955 Age: 69 Procedure Date: 03/02/2025 Procedure Type: Transthoracic Echocardiogram Location: S3E Height: 165.1 cm Weight: 158.31 kg BSA: 2.51 m2 Heart Rate: 68 bpm BP: 120 / 62 mmHg Mop Worker: SB Referring MD: Molly Hogan MD Symptoms: CHF Study Quality: Technically Difficult/Unable to tolerate ECG Rhythm: Atrial Fibrillation Conclusions: - The left ventricular systolic function is normal. The visually estimated ejection fraction is between 60-65%. - There is mild to moderately decreased right ventricular systolic function. - Paradoxical low-flow, low gradient severe aortic stenosis. - The right ventricular systolic pressure is 102 mmHg. Severe pulmonary hypertension is present. Findings Procedure Information The study quality is limited by the patients inability to tolerate the test. Left Ventricle Normal left ventricular cavity size. There is mildly increased left ventricular wall thickness. The left ventricular systolic function is normal. The visually estimated ejection fraction is between 60-65%. There is no evidence of regional wall motion abnormalities. There is a flattened septum in systole consistent with right ventricular pressure overload. Diastolic function is indeterminate on the basis of available data. There is severe septal asymmetric hypertrophy. Right Ventricle Moderately increased right ventricular cavity size. There is mild to moderately decreased right ventricular systolic function. Atria The left atrium is moderately dilated. The right atrium is severely dilated. Aortic Valve There is severe calcification of the aortic valve. There is severe aortic valve stenosis. The peak aortic velocity is 3.72 m/s with a calculated peak gradient of 55 mmHg. The mean gradient is 33 mmHg. The aortic valve area is 0.86 cm2. There is mild aortic valve regurgitation. Dimensionless index 0.23. Stroke volume index 25 mL/m2. Paradoxical, low-flow, low gradient. Mitral Valve The mitral valve appears normal. There is no mitral valve regurgitation. There is no mitral valve stenosis. Pulmonic Valve The pulmonic valve is likely normal. Tricuspid Valve Normal tricuspid valve structure. There is mild to moderate tricuspid valve regurgitation. The right ventricular systolic pressure is 102 mmHg. Severe pulmonary hypertension is present. Great Vessels The asc aorta is normal in size. Venous The inferior vena cava is dilated and collapses less than 50% with inspiration. Pericardium/Pleural There is a small loculated pericardial effusion overlying the left ventricle and right atrium. Prior Study Comparison No prior study available for comparison. Measurements 2D Linear Measurements IVSd: 1.59 0.6-0.9/0.6-1.0 cm LVIDd: 4.38 3.9-5.3/4.2-5.9 cm LVIDd Index: 1.75 2.4-3.2/2.2-3.1 cm/m2 LVIDs: 1.81 2.0-3.6 cm LVPWd: 1.27 0.7-1.1 cm LA Diam: 5.20 2.7-3.8/3.0-4.0 cm LAIDs Index: 2.07 1.5-2.3 cm/m2 LV Mass: 307.29 67-162/88-224 g LV Mass Index: 122.43 43-95/49-115 g/m2 LVOT Diam: 2.20 3.0+(-)1.3 cm 2D Systolic Function EF 4C: 62.20 >55% Mitral Valve MV Pk E: 1.04 MV Decel Time: 161.00 E'Lateral: 8.60 E'Medial: 5.81 E/E' Med: 17.90 E/E' Lat: 12.10 Aortic Valve AoV Pk Loki: 3.72 AoV Mn Loki: 2.73 AoV VTI: 0.73 AoV Pk Grad: 55.00 Aov Mn Grad: 33.00 SAFIA Cont.VTI: 0.86 LVOT LVOT Pk Loki: 0.85 LVOT Mn Loki: 0.59 LVOT VTI: 0.16 LVOT Pk Grad: 3.00 LVOT Mn Grad: 2.00 LVOT Diam: 2.20 LVOT Area: 3.80 Diastolic Function MV Pk E: 1.04 E'Medial: 5.81 E/E' Med: 17.90 E' Laterial: 8.60 E/E' Lat: 12.10 Right Ventricle TAPSE (mm): 13.30 TVS' Loki: 7.51 Tricuspid Valve TR Pk Loki: 4.67 TR Pk Grad: 87.00 RA Press: 15.00 RVSP: 102.00 Great Vessels Aorta Sinus of Valsalva: 3.50 2.0-3.5 cm Ao Asc: 3.90 2.1-3.4 cm Pulmonary Valve PV Pk Loki: 1.52 Peak PV Grad: 9.00 Updated in Other Vendor System with Status of Final Barber Almaraz MD electronically signed on 03/02/2025 5:15:09 PM with status of Final
[2025-03-02 08:00] VITALS: BP 115/75; PULSE 75; RESP 18; TEMP 36.9; O2SAT 85
[2025-03-02] MEDS: Apixaban 5 MG TABLET PO ×2 (08:23→21:22)
[2025-03-02] MEDS: FLUoxetine HCl 20 MG CAPSULE PO ×2 (08:23→21:22)
[2025-03-02] MEDS: busPIRone HCl 10 MG TABLET 30 MG PO ×2 (08:23→21:22)
[2025-03-02] MEDS: Atorvastatin Calcium 40 MG TABLET PO (08:23)
[2025-03-02] MEDS: allopurinoL 100 MG TABLET PO (08:24)
[2025-03-02] MEDS: Furosemide 40 MG/4 ML VIAL IVPUSH ×2 (08:24→17:20)
[2025-03-02] MEDS: buPROPion HCl XL 300 MG TAB.ER.24H PO (08:24)
[2025-03-02] MEDS: 0.9 % Sodium Chloride Flush 3 ML SYRINGE IVFLUSH ×3 (08:24→21:22)
[2025-03-02] MEDS: Valsartan 160 MG TABLET PO (08:24)
[2025-03-02] MEDS: buPROPion HCl XL 150 MG TAB.ER.24H PO (08:24)
[2025-03-02] MEDS: Spironolactone 25 MG TABLET PO (08:24)
[2025-03-02] MEDS: Mineral Oil/Petrolatum,White 106 GM Tube 1 APPL TOPICAL (08:28)
[2025-03-02] MEDS: Nystatin Powder 15 GM BOTTLE 1 APPL TOPICAL ×2 (08:28→17:24)
--- NOTE | 2025-03-02 09:12 | P.PNIM_ITS ---
Subjective Subjective Date of Service: 03/02/25 Interval History: Follow up CHF sob is improving Physical Exam 2 Vital Signs: Vital Signs: Last Vital Signs Temp 98.4 F 03/02/25 08:00 Pulse 75 03/02/25 08:00 Resp 18 03/02/25 08:00 BP 115/75 03/02/25 08:00 Pulse Ox 85 L 03/02/25 08:00 O2 Del Method Room Air 03/02/25 08:00 O2 Flow Rate 4 03/02/25 03:44 BMI result Body Mass Index 58.1 Appearing in no acute distress lung sounds are clear to auscultation heart regular rate rhythm, clear S1, S2 positive bowel sounds, abdomen is soft, nontender neuro patient is alert x3, no focal deficits Objective Data Active Medications Acetaminophen (Acetaminophen 325 Mg Tablet) 650 mg PO Q6H PRN PRN Reason: Pain, Mild 1-3,fever,headache Albuterol Sulfate (Albuterol Sulfate 90 Mcg 8 Gm Inhaler) 2 puff INHALE Q6H PRN PRN Reason: Shortness Of Breath Or Wheezing Allopurinol (Allopurinol 100 Mg Tablet) 100 mg PO DAILY COUNT INCLUDES THE [facility] Last Admin: 03/02/25 08:24 Dose: 100 mg Documented By: CAN Apixaban (Apixaban 5 Mg Tablet) 5 mg PO BID COUNT INCLUDES THE [facility] Last Admin: 03/02/25 08:23 Dose: 5 mg Documented By: CAN Atorvastatin Calcium (Atorvastatin Calcium 40 Mg Tablet) 40 mg PO DAILY COUNT INCLUDES THE [facility] Last Admin: 03/02/25 08:23 Dose: 40 mg Documented By: CAN Bupropion HCl (Bupropion Hcl Xl 300 Mg Tab.Er.24h) 300 mg PO DAILY COUNT INCLUDES THE [facility] Last Admin: 03/02/25 08:24 Dose: 300 mg Documented By: CAN Bupropion HCl (Bupropion Hcl Xl 150 Mg Tab.Er.24h) 150 mg PO DAILY COUNT INCLUDES THE [facility] Last Admin: 03/02/25 08:24 Dose: 150 mg Documented By: CAN Buspirone HCl (Buspirone Hcl 10 Mg Tablet) 30 mg PO BID COUNT INCLUDES THE [facility] Last Admin: 03/02/25 08:23 Dose: 30 mg Documented By: CAN Calcium Carbonate (Calcium Carbonate 750 Mg Tab.Chew) 750 mg PO Q4H PRN PRN Reason: Heartburn Fluoxetine HCl (Fluoxetine Hcl 20 Mg Capsule) 20 mg PO BID COUNT INCLUDES THE [facility] Last Admin: 03/02/25 08:23 Dose: 20 mg Documented By: CAN Furosemide (Furosemide 40 Mg/4 Ml Vial) 40 mg IVPUSH BID@0900,1800 COUNT INCLUDES THE [facility]; Protocol Last Admin: 03/02/25 08:24 Dose: 40 mg Documented By: CAN Magnesium Hydroxide (Milk Of Magnesia 30 Ml Oral.Susp) 30 ml PO DAILY PRN PRN Reason: Constipation Melatonin (Melatonin 3 Mg Tablet) 6 mg PO BEDTIME PRN PRN Reason: Insomnia Multi-Ingred Cream/Lotion/Oil/Oint (Mineral Oil/Petrolatum,White 106 Gm Tube) 1 appl TOPICAL BID COUNT INCLUDES THE [facility]; Protocol Last Admin: 03/02/25 08:28 Dose: 1 appl Documented By: CAN Nystatin (Nystatin Powder 15 Gm Bottle) 1 appl TOPICAL TID COUNT INCLUDES THE [facility]; Protocol Last Admin: 03/02/25 08:28 Dose: 1 appl Documented By: CAN Ondansetron HCl (Ondansetron Hcl 4 Mg/2 Ml Vial) 4 mg IVPUSH Q8H PRN PRN Reason: Nausea and Vomiting Sodium Chloride (0.9 % Sodium Chloride Flush 3 Ml Syringe) 3 ml IVFLUSH QSHIFT COUNT INCLUDES THE [facility] Last Admin: 03/02/25 08:24 Dose: 3 ml Documented By: CAN Spironolactone (Spironolactone 25 Mg Tablet) 25 mg PO DAILY COUNT INCLUDES THE [facility]; Protocol Last Admin: 03/02/25 08:24 Dose: 25 mg Documented By: CAN Valsartan (Valsartan 160 Mg Tablet) 160 mg PO DAILY COUNT INCLUDES THE [facility] Last Admin: 03/02/25 08:24 Dose: 160 mg Documented By: CAN Labs 02/28/25 06:40 03/02/25 05:42 Labs: Laboratory Results - last 24 hr 03/02/25 05:42 Hold Purple Top SEE NOTE Anion Gap 14 Estim Creat Clear Calc 81.7 Estimated GFR 59 Random Glucose 87 Calcium 9.4 Assessment and Plan (1) Pulmonary hypertension: Status: Acute (2) PARRIS (obstructive sleep apnea): Status: Acute (3) COPD (chronic obstructive pulmonary disease): Status: Acute (4) New onset of congestive heart failure: Status: Acute Plan 69-year-old male with pertinent history of PARRIS on CPAP, chronic hypoxemic respiratory failure due to COPD, pulmonary hypertension, mood disorder, gout, atrial fibrillation on anticoagulation, hypertension who presented to the emergency department for evaluation of dyspnea. Acute decompensated congestive heart failure with preserved EF last echo from 2021 with preserved EF; pulmonary hypertension, right heart dysfunction, moderate Low-salt diet Spironolactone added echo pending IV lasix, increased to BID, follow Is&Os Right arm swelling, erythema ?olecranon bursitis non-tender, no warmth; no fever or leukocytosis. has full ROM of elbow soft tissue US with no drainable fluid collection elbow xray unremarkable pt declines antibiotics Hypertension Continue home Arb (changed to diovan inpatient) Hold diltiazem per cardiology Chlorthalidone on hold as spironolactone started Chronic hypoxemic respiratory failure due to COPD Continue home baseline supplemental oxygen 3-6L Continue home inhalers Mood disorder Continue home mood stabilizers Atrial fibrillatio Rate controlled Continue Eliquis for anticoagulation Hold diltiazem as per Cardiology recommendation PARRIS Continue CPAP at bedtime Super morbid obesity BMI 58.1 Discussed importance of weight management as this may be contributing to worsening of other comorbidities DVT prophylaxis: Eliquis Full code. Quality Stroke Does the patient have a stroke diagnosis?: No VTE Prior VTE?: No VTE Risk Level:: Medical - moderate - high VTE Device Contraindication: Treatment Not Indicated VTE Drug Contraindication: N/A - Med Ordered
--- NOTE | 2025-03-02 12:38 | MHC.CM.PN ---
EMR REVIEWED, PT W/ACUTE HF, PT REMAINS SUPPLEMENTAL O2 4L, IV LASIX BID, NO PLAN FOR DC AT THIS TIME, REFER PLACED TO [facility], PT MAY NEED P.T. EVAL PRIOR TO DC, CM WILL CONT TO FOLLOW DC NEEDS.
[2025-03-02] MEDS: Albuterol Sulfate 90 MCG 8 GM INHALER 2 PUFF INHALE (13:54)
[2025-03-02 15:48] VITALS: BP 128/86; PULSE 72; RESP 20; TEMP 36.1; O2SAT 90
[2025-03-02 19:50] VITALS: BP 124/77; PULSE 80; RESP 16; TEMP 36.5; O2SAT 93
[2025-03-02 21:20] VITALS: O2SAT 92
[2025-03-02 23:49] VITALS: PULSE 90; RESP 20; O2SAT 92
[2025-03-03 03:29] VITALS: BP 124/77; PULSE 80; RESP 20; TEMP 36.5; O2SAT 93
[2025-03-03 07:45] VITALS: BP 127/86; PULSE 69; RESP 17; TEMP 36.6; O2SAT 95
--- NOTE | 2025-03-03 08:21 | HO.PM.IMPN ---
Subjective Subjective Date of Service: 03/03/25 Interval History: Follow up CHF sob is improving Physical Exam Vital Signs: Vital Signs: Last Vital Signs Temp 97.9 F 03/03/25 07:45 Pulse 69 03/03/25 07:45 Resp 17 03/03/25 07:45 BP 127/86 03/03/25 07:45 Pulse Ox 95 03/03/25 07:45 O2 Del Method Nasal Cannula, CP AP 03/03/25 07:45 O2 Flow Rate 4 03/03/25 07:45 BMI result Body Mass Index 58.1 Appearing in no acute distress lung sounds are clear to auscultation heart regular rate rhythm, clear S1, S2 positive bowel sounds, abdomen is soft, nontender neuro patient is alert x3, no focal deficits Objective Data Active Medications Acetaminophen (Acetaminophen 325 Mg Tablet) 650 mg PO Q6H PRN PRN Reason: Pain, Mild 1-3,fever,headache Albuterol Sulfate (Albuterol Sulfate 90 Mcg 8 Gm Inhaler) 2 puff INHALE Q6H PRN PRN Reason: Shortness Of Breath Or Wheezing Last Admin: 03/02/25 13:54 Dose: 2 puff Documented By: CAN Allopurinol (Allopurinol 100 Mg Tablet) 100 mg PO DAILY FOR[facility], [facility] Last Admin: 03/02/25 08:24 Dose: 100 mg Documented By: CAN Apixaban (Apixaban 5 Mg Tablet) 5 mg PO BID [facility] Last Admin: 03/02/25 21:22 Dose: 5 mg Documented By: ALVIN Atorvastatin Calcium (Atorvastatin Calcium 40 Mg Tablet) 40 mg PO DAILY [facility] Last Admin: 03/02/25 08:23 Dose: 40 mg Documented By: CAN Bupropion HCl (Bupropion Hcl Xl 300 Mg Tab.Er.24h) 300 mg PO DAILY [facility] Last Admin: 03/02/25 08:24 Dose: 300 mg Documented By: CAN Bupropion HCl (Bupropion Hcl Xl 150 Mg Tab.Er.24h) 150 mg PO DAILY [facility] Last Admin: 03/02/25 08:24 Dose: 150 mg Documented By: CAN Buspirone HCl (Buspirone Hcl 10 Mg Tablet) 30 mg PO BID [facility] Last Admin: 03/02/25 21:22 Dose: 30 mg Documented By: ALVIN Calcium Carbonate (Calcium Carbonate 750 Mg Tab.Chew) 750 mg PO Q4H PRN PRN Reason: Heartburn Fluoxetine HCl (Fluoxetine Hcl 20 Mg Capsule) 20 mg PO BID [facility] Last Admin: 03/02/25 21:22 Dose: 20 mg Documented By: ALVIN Furosemide (Furosemide 40 Mg/4 Ml Vial) 40 mg IVPUSH BID@0900,1800 [facility], [facility]; Protocol Last Admin: 03/02/25 17:20 Dose: 40 mg Documented By: CAN Magnesium Hydroxide (Milk Of Magnesia 30 Ml Oral.Susp) 30 ml PO DAILY PRN PRN Reason: Constipation Melatonin (Melatonin 3 Mg Tablet) 6 mg PO BEDTIME PRN PRN Reason: Insomnia Multi-Ingred Cream/Lotion/Oil/Oint (Mineral Oil/Petrolatum,White 106 Gm Tube) 1 appl TOPICAL BID [facility], [facility]; Protocol Last Admin: 03/02/25 21:26 Dose: Not Given Documented By: ALVIN Non-Admin Reason: Patient Refused Nystatin (Nystatin Powder 15 Gm Bottle) 1 appl TOPICAL TID [facility], [facility]; Protocol Last Admin: 03/02/25 21:26 Dose: Not Given Documented By: ALVIN Non-Admin Reason: Patient Refused Ondansetron HCl (Ondansetron Hcl 4 Mg/2 Ml Vial) 4 mg IVPUSH Q8H PRN PRN Reason: Nausea and Vomiting Sodium Chloride (0.9 % Sodium Chloride Flush 3 Ml Syringe) 3 ml IVFLUSH QSHIFT [facility] Last Admin: 03/02/25 21:22 Dose: 3 ml Documented By: ALVIN Spironolactone (Spironolactone 25 Mg Tablet) 25 mg PO DAILY [facility]; Protocol Last Admin: 03/02/25 08:24 Dose: 25 mg Documented By: CAN Valsartan (Valsartan 160 Mg Tablet) 160 mg PO DAILY [facility] Last Admin: 03/02/25 08:24 Dose: 160 mg Documented By: CAN Labs 02/28/25 06:40 03/02/25 05:42 Assessment and Plan (1) Pulmonary hypertension: Status: Acute (2) PARRIS (obstructive sleep apnea): Status: Acute (3) COPD (chronic obstructive pulmonary disease): Status: Acute (4) New onset of congestive heart failure: Status: Acute Plan 69-year-old male with pertinent history of PARRIS on CPAP, chronic hypoxemic respiratory failure due to COPD, pulmonary hypertension, mood disorder, gout, atrial fibrillation on anticoagulation, hypertension who presented to the emergency department for evaluation of dyspnea. Acute decompensated congestive heart failure with preserved EF last echo from 2021 with preserved EF; pulmonary hypertension, right heart dysfunction, moderate Low-salt diet Spironolactone added echo EF 60-65% with severe aortic stenosis and severe pulmonary hypertension IV lasix 40 BID Right arm swelling, erythema ?olecranon bursitis non-tender, no warmth; no fever or leukocytosis. has full ROM of elbow soft tissue US with no drainable fluid collection elbow xray unremarkable pt declines antibiotics Hypertension Continue home Arb (changed to diovan inpatient) Hold diltiazem per cardiology Chlorthalidone on hold as spironolactone started Chronic hypoxemic respiratory failure due to COPD Continue home baseline supplemental oxygen 3-6L Continue home inhalers Mood disorder Continue home mood stabilizers Atrial fibrillation Rate controlled Continue Eliquis for anticoagulation Hold diltiazem as per Cardiology recommendation PARRIS Continue CPAP at bedtime Super morbid obesity BMI 58.1 Discussed importance of weight management as this may be contributing to worsening of other comorbidities DVT prophylaxis: Eliquis Full code. Quality Stroke Does the patient have a stroke diagnosis?: No VTE Prior VTE?: No VTE Risk Level:: Medical - moderate - high VTE Device Contraindication: Treatment Not Indicated VTE Drug Contraindication: N/A - Med Ordered
[2025-03-03] MEDS: 0.9 % Sodium Chloride Flush 3 ML SYRINGE IVFLUSH ×3 (09:38→22:52)
[2025-03-03] MEDS: FLUoxetine HCl 20 MG CAPSULE PO ×2 (09:39→22:52)
[2025-03-03] MEDS: Valsartan 160 MG TABLET PO (09:39)
[2025-03-03] MEDS: Spironolactone 25 MG TABLET PO (09:39)
[2025-03-03] MEDS: buPROPion HCl XL 300 MG TAB.ER.24H PO (09:39)
[2025-03-03] MEDS: buPROPion HCl XL 150 MG TAB.ER.24H PO (09:39)
[2025-03-03] MEDS: allopurinoL 100 MG TABLET PO (09:39)
[2025-03-03] MEDS: Atorvastatin Calcium 40 MG TABLET PO (09:39)
[2025-03-03] MEDS: busPIRone HCl 10 MG TABLET 30 MG PO ×2 (09:39→22:52)
[2025-03-03] MEDS: Furosemide 40 MG/4 ML VIAL IVPUSH ×2 (09:40→17:25)
[2025-03-03] MEDS: Apixaban 5 MG TABLET PO ×2 (09:40→22:52)
[2025-03-03] MEDS: Mineral Oil/Petrolatum,White 106 GM Tube 1 APPL TOPICAL ×2 (09:40→22:53)
[2025-03-03] MEDS: Nystatin Powder 15 GM BOTTLE 1 APPL TOPICAL ×2 (09:40→22:53)
--- NOTE | 2025-03-03 10:42 | P.PNCA_ITS ---
Subjective Subjective Date of Service: 03/03/25 Interval history: He states that he is feeling better. Not entirely clear with the input output charting is accurate or not as it shows only -1 L. Review of Systems Review of Systems Yes all other systems are reviewed and are negative Constitutional: Reports as per HPI and Reports no additional constitutional complaints Eyes: Reports as per HPI and Denies no additional eye complaints Denies system reviewed and no additional complaints, except as documented and Reports as per HPI Cardiovascular: Reports as per HPI, Reports no additional cardiovascular complaints, Denies acrocyanosis, Denies cool extremities, Denies chest pain, Denies leg edema, Denies lightheadedness, Denies palpitations and Reports dyspnea Respiratory: Reports as per HPI, Denies no additional respiratory complaints and Reports dyspnea Gastrointestinal: Reports as per HPI and Denies no additional gastrointestinal complaints Genitourinary: Reports no additional male genitourinary complaints and Reports as per HPI Musculoskeletal: Reports no additional musculoskeletal complaints and Reports as per HPI Skin/Breast: Reports system reviewed and no additional complaints, except as docu Reports system reviewed and no additional complaints, except as documented and Reports as per HPI Psychiatric: Reports no additional psychiatric complaints and Reports as per HPI Endocrine: Reports no additional endocrine complaints, Reports as per HPI and Denies palpitations Hematologic/Lymphatic: Reports no additional hematologic/lymphatic complaints and Reports as per HPI Allergic/Immunologic: Reports no additional allergic/immunologic complaints and Reports as per HPI Physical Exam Vital Signs: Last Vital Signs Temp 97.9 F 03/03/25 07:45 Pulse 69 03/03/25 07:45 Resp 17 03/03/25 07:45 BP 127/86 03/03/25 07:45 Pulse Ox 95 03/03/25 07:45 O2 Del Method Nasal Cannula, CPAP 03/03/25 07:45 O2 Flow Rate 4 03/03/25 07:45 BMI result Body Mass Index 58.1 Const General: comfortable and no acute distress Orientation/consciousness: patient oriented x3 HEENT Other: Unremarkable Head: Yes normal to inspection Neck Neck: Yes normal visual inspection Chest Chest palpation & inspection: normal inspection of the chest Resp Auscultation: diminished lung sounds Cardio Palpation: normal PMI Heart sounds: S1 normal heart sound present, S2 normal heart sound present, no gallops, Murmur heart sound present systolic III/ and at the right sternal border and no rubs GI Palpation (GI): Soft to palpation Back/Spine/Pelvis Other: unremarkable Skin General skin exam: no rashes or lesions noted Neuro General: patient oriented x3 Extrem Other: Trace to 1+ edema General: Yes normal to inspection Psych Mental Status: mental status grossly normal Objective Labs and Meds 02/28/25 06:40 03/02/25 05:42 Progress Note: A&P Assessment and plan (1) Acute on chronic heart failure with preserved ejection fraction: Status: Acute (2) Nonrheumatic aortic (valve) stenosis: Status: Acute (3) Pulmonary hypertension: Status: Acute (4) Chronic respiratory failure: Status: Acute (5) PARRIS (obstructive sleep apnea): Status: Acute Plan Echocardiogram from yesterday reviewed. LVEF is 60-65%. Diminished RV function. Mean gradient across aortic valve was 33 mm Hg; peak 55 mm Hg. Dimensionless index was 0.23. Stroke volume index was 25 mL/m2. Calculated valve area was 0.86 cm2. Overall, thought to be paradoxical low-flow, low gradient severe aortic stenosis. There was also severe pulmonary hypertension with RVSP of 102 mm Hg. IVC was dilated with reduced respiratory collapsibility. Findings discussed with patient and recommended the fact that he needs further evaluation with cardiac catheterization as well as TAVR assessment. He states that he wants to think about it and would not willing to get transferred to [facility] at this time. Hence can keep him on IV diuretics. If he is not willing to get transferred, after he is more euvolemic, discharge planning and he will need to follow up with his own regular outpatient hris analyst. Discussed with Georgina Orantes. Time Spent With Patient Time: Total time managing care of this patient today ____ minutes. Progress Note: Quality Stroke Does the patient have a stroke diagnosis?: No Procedures Date of Service Date of Service: 03/03/25
[2025-03-03 10:49] VITALS: BP 127/86; PULSE 69; O2SAT 95
--- NOTE | 2025-03-03 15:37 | MHC.CM.PN ---
EMR REVIEWED, P.T. RECOMMEDNING STR HOWEVER PER CARDIO PT SHOULD TRANSFER TO [facility], PT UNDECIDED ABOUT TRANSFER AND WILL CONSIDER IT, PT REMAINS ON IV LASIX, CM WILL CONT TO FOLLOW DC NEEDS.
[2025-03-03 15:51] VITALS: BP 119/77; PULSE 67; RESP 19; TEMP 36.9; O2SAT 91
[2025-03-03 19:48] VITALS: PULSE 92; RESP 18; O2SAT 93
[2025-03-03 19:58] VITALS: BP 127/80; PULSE 67; RESP 18; TEMP 36.4; O2SAT 95
[2025-03-04] VITALS (9 sets, daily range): BP systolic 111–136; BP diastolic 62–82; PULSE 62–94; RESP 17–20; TEMP 36.6; O2SAT 91–96; BMI 53.2
[2025-03-04] MEDS: 0.9 % Sodium Chloride Flush 3 ML SYRINGE IVFLUSH ×3 (08:26→22:09)
[2025-03-04] MEDS: Furosemide 40 MG/4 ML VIAL IVPUSH ×2 (08:30→18:30)
[2025-03-04] MEDS: Valsartan 160 MG TABLET PO (08:31)
[2025-03-04] MEDS: buPROPion HCl XL 150 MG TAB.ER.24H PO (08:31)
[2025-03-04] MEDS: buPROPion HCl XL 300 MG TAB.ER.24H PO (08:31)
[2025-03-04] MEDS: allopurinoL 100 MG TABLET PO (08:31)
[2025-03-04] MEDS: Atorvastatin Calcium 40 MG TABLET PO (08:32)
[2025-03-04] MEDS: Spironolactone 25 MG TABLET PO (08:32)
[2025-03-04] MEDS: busPIRone HCl 10 MG TABLET 30 MG PO ×2 (08:32→22:08)
[2025-03-04] MEDS: Apixaban 5 MG TABLET PO ×2 (08:32→22:08)
[2025-03-04] MEDS: FLUoxetine HCl 20 MG CAPSULE PO ×2 (08:33→22:07)
--- NOTE | 2025-03-04 09:36 | P.PNCA_ITS ---
Subjective Subjective Date of Service: 03/04/25 Interval history: He states that he is feeling better. Eating breakfast at this time. Seems comfortable. No active complaints. Review of Systems Review of Systems Yes all other systems are reviewed and are negative Constitutional: Reports as per HPI and Reports no additional constitutional complaints Eyes: Reports as per HPI and Denies no additional eye complaints Denies system reviewed and no additional complaints, except as documented and Reports as per HPI Cardiovascular: Reports as per HPI, Reports no additional cardiovascular complaints, Denies acrocyanosis, Denies cool extremities, Denies chest pain, Denies leg edema, Denies lightheadedness, Denies palpitations and Denies dyspnea Respiratory: Reports as per HPI, Denies no additional respiratory complaints and Denies dyspnea Gastrointestinal: Reports as per HPI and Denies no additional gastrointestinal complaints Genitourinary: Reports no additional male genitourinary complaints and Reports as per HPI Musculoskeletal: Reports no additional musculoskeletal complaints and Reports as per HPI Skin/Breast: Reports system reviewed and no additional complaints, except as docu Reports system reviewed and no additional complaints, except as documented and Reports as per HPI Psychiatric: Reports no additional psychiatric complaints and Reports as per HPI Endocrine: Reports no additional endocrine complaints, Reports as per HPI and Denies palpitations Hematologic/Lymphatic: Reports no additional hematologic/lymphatic complaints and Reports as per HPI Allergic/Immunologic: Reports no additional allergic/immunologic complaints and Reports as per HPI Physical Exam Vital Signs: Last Vital Signs Temp 97.8 F 03/04/25 07:34 Pulse 62 03/04/25 07:34 Resp 19 03/04/25 07:34 BP 136/75 03/04/25 08:32 Pulse Ox 95 03/04/25 07:34 O2 Del Method Nasal Cannula 03/04/25 07:34 O2 Flow Rate 4 03/04/25 07:34 BMI result Body Mass Index 58.1 Const General: comfortable and no acute distress Orientation/consciousness: patient oriented x3 HEENT Other: Unremarkable Head: Yes normal to inspection Neck Neck: Yes normal visual inspection Chest Chest palpation & inspection: normal inspection of the chest Resp Auscultation: diminished lung sounds Cardio Palpation: normal PMI Heart sounds: S1 normal heart sound present, S2 normal heart sound present, no gallops, Murmur heart sound present systolic III/ and at the right sternal border and no rubs GI Palpation (GI): Soft to palpation Back/Spine/Pelvis Other: unremarkable Skin General skin exam: no rashes or lesions noted Neuro General: patient oriented x3 Extrem Other: Trace to 1+ edema General: Yes normal to inspection Psych Mental Status: mental status grossly normal Objective Labs and Meds 02/28/25 06:40 03/02/25 05:42 Progress Note: A&P Assessment and plan (1) Acute on chronic heart failure with preserved ejection fraction: Status: Acute (2) Nonrheumatic aortic (valve) stenosis: Status: Acute (3) Pulmonary hypertension: Status: Acute (4) Chronic respiratory failure: Status: Acute (5) PARRIS (obstructive sleep apnea): Status: Acute Plan Echocardiogram from this admit reviewed. LVEF is 60-65%. Diminished RV function. Mean gradient across aortic valve was 33 mm Hg; peak 55 mm Hg. Dimensionless index was 0.23. Stroke volume index was 25 mL/m2. Calculated valve area was 0.86 cm2. Overall, thought to be paradoxical low-flow, low gradient severe aortic stenosis. There was also severe pulmonary hypertension with RVSP of 102 mm Hg. IVC was dilated with reduced respiratory collapsibility. Findings discussed with patient and recommended the fact that he needs further evaluation with cardiac catheterization as well as TAVR assessment. 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 He is thinking of rather going to a specialist in [place]. In the interim, continue diuretics for symptom relief. Requested him to make appointment with his own laundry machine operator to discuss further. Discussed with Georgina Orantes. Time Spent With Patient Time: Total time managing care of this patient today ____ minutes. Progress Note: Quality Stroke Does the patient have a stroke diagnosis?: No Procedures Date of Service Date of Service: 03/04/25
--- NOTE | 2025-03-04 10:43 | PM.DS ---
DS: Providers Provider Date of Service: 03/04/25 Date of admission: 02/27/25 23:31 Date of discharge: 03/04/25 Primary care physician: Nidhi Gregorio MD Consults: 02/28/25 07:25 Consult to Cardiology Routine Consulting Provider: [facility] [place] [facility] Reason for consultation: acute chf 03/04/25 05:11 Consult to Wound Care Routine Reason for consultation: R elbow wound DS: Diagnosis Discharge Diagnosis (1) Acute on chronic heart failure with preserved ejection fraction: Status: Acute (2) Nonrheumatic aortic (valve) stenosis: Status: Acute (3) Pulmonary hypertension: Status: Acute (4) Chronic respiratory failure: Status: Acute (5) PARRIS (obstructive sleep apnea): Status: Acute DS: Summary Hospital Course Hospital Course: History and physical as per admitting provider. This is a 69-year-old male with pertinent history of PARRIS on CPAP, chronic hypoxemic respiratory failure due to COPD, pulmonary hypertension, mood disorder, gout, atrial fibrillation on anticoagulation, hypertension who presents to the emergency department for evaluation of dyspnea. Patient states over the last few days he has been having shortness of breath which is worse with ambulation. Also noticed lower extremity swelling. No change in cough or wheezing. Patient states as he was about to go to bed on the day of presentation, he got severely short of breath which was not relieved with the home inhalers. Patient was put on diuretics previously as an outpatient but has no history of CHF that he knows of. Does use CPAP at bedtime. No fever, chills, chest pain, palpitations, abdominal pain, changes in urinary or bowel habits. In the emergency department, BNP found to be elevated and imaging with cardiomegaly and pulmonary vascular congestion. Acute decompensated congestive heart failure. Treated with IV Lasix b.i.d and spironolactone added. echo EF 60-65% with severe aortic stenosis and severe pulmonary hypertension. 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 Continue oral Lasix. Right arm swelling, erythema , ?olecranon bursitis, non-tender, no warmth; no fever or leukocytosis. has full ROM of elbow, soft tissue US with no drainable fluid collection, elbow xray unremarkable, pt declined antibiotics Hypertension. Continue home Arb, spironolactone started Chronic hypoxemic respiratory failure due to COPD, Continue home baseline supplemental oxygen 3-6L, Continue home inhalers Mood disorder Continue home mood stabilizers Atrial fibrillation Rate controlledContinue Eliquis for anticoagulation, diltiazem stopped as per Cardiology recommendation PARRIS Continue CPAP at bedtime Super morbid obesity, BMI 58.1, Discussed importance of weight management as this may be contributing to worsening of other comorbidities Time Attestation Discharge Coordination Time (in mins): 42 Quality: Safe Use of Opioids Does Pt have an Active Cancer Diagnosis on the Problem List?: No Quality: Stroke Does the patient have a stroke diagnosis?: No Physical Exam Vital Signs: Vital Signs: Last Vital Signs Temp 97.8 F 03/04/25 07:34 Pulse 62 03/04/25 07:34 Resp 19 03/04/25 07:34 BP 136/75 03/04/25 08:32 Pulse Ox 95 03/04/25 07:34 O2 Del Method Nasal Cannula 03/04/25 07:34 O2 Flow Rate 4 03/04/25 07:34 BMI result Body Mass Index 58.1 Appearing in no acute distress head is normocephalic atraumatic eyes pupils are PERRLA sclera is anicteric mouth throat mucous membranes are intact and moist neck is supple no lymphadenopathy, no JVD noted lung sounds dim, on oxygen heart regular rate rhythm, clear S1, S2 positive bowel sounds, abdomen is soft, nontender neuro patient is alert x3, no focal deficits Discharge Plan Discharge Anticipated Discharge Date/Time: 03/04/25 10:33 Patient Disposition: Home Health Service Discharge Diagnosis: Acute decompensated congestive heart failure Right arm swelling Hypertension Acute on chronic hypoxemic respiratory failure Referrals: Nidhi Gregorio MD [Primary Care Provider] - 1 Week Discharge Medications: New spironolactone 25 mg Tablet 25 mg PO DAILY Qty: 30 0RF Protocol: Hold for SBP< HOLD for SBP < : 90 furosemide [Lasix] 40 mg tablet 40 mg PO DAILY Qty: 30 0RF Continued albuterol sulfate 90 mcg/actuation HFA aerosol inhaler 2 puff inhalation Q6H PRN (Reason: Shortness Of Breath Or Wheezing) allopurinol 100 mg tablet 100 mg PO DAILY atorvastatin 40 mg tablet 40 mg PO DAILY bupropion HCl 200 mg tablet sustained-release 12 hr 200 mg PO BID buspirone 30 mg tablet 30 mg PO BID chlorthalidone 25 mg tablet 25 mg PO DAILY diltiazem HCl [DILT-XR] 120 mg capsule,ext.rel 24h degradable 120 mg PO DAILY Eliquis 5 mg tablet 5 mg PO BID fluoxetine 20 mg capsule 20 mg PO BID olmesartan 40 mg tablet 40 mg PO DAILY cholecalciferol (vitamin D3) 25 mcg (1,000 unit) capsule 25 mcg PO DAILY multivitamin Tablet 1 tab PO DAILY coenzyme Q10 100 mg tablet 300 mg PO DAILY (DME) CPAP Machine/Device Device See Rx Instructions .ROUTE Rx Instructions: As directed (DME) Oxygen Home Use Kit See Rx Instructions .ROUTE Rx Instructions: As directed Discharge Orders: Discharge Order (Routine); Ordered 03/04/25 Ordered By: Georgina Orantes Diet: Advance to usual diet Activity on Discharge: As tolerated Stand Alone Forms: Patient Portal Discharge page Print Language: Hungarian Care Plan Goals: Follow up with Cardiology for further management of aortic stenosis Continue baseline oxygen of 3-6 L Health Concerns: Acute decompensated congestive heart failure Right arm swelling Hypertension Acute on chronic hypoxemic respiratory failure Plan of Treatment: Follow up with primary care provider as needed Take all medications as prescribed Assessment: See discharge summary
[2025-03-04] MEDS: Nystatin Powder 15 GM BOTTLE 1 APPL TOPICAL ×3 (10:50→22:08)
[2025-03-04] MEDS: Mineral Oil/Petrolatum,White 106 GM Tube 1 APPL TOPICAL ×2 (10:50→22:08)
--- NOTE | 2025-03-04 10:56 | W.MHC.F2F ---
Service Date Service Date: 03/04/25 Encounter Date of encounter: 03/04/25 Reasons for Services Signs and symptoms assessed: Congestive heart failure with severe aortic stenosis on home oxygen Reason for retirement: CV/CP assess and/or care Reason for occupational therapy: home safety and mobility and energy conservation (On home oxygen) Homebound: Leaving the home is medically contraindicated at this time without the asist of a device and/or another person due th the listed conditions above and below. Reason homebound: unsteady gait / fall risk and weakness related to hospital stay Certification: Based on the above findings, I certify that this patient is confined to the home and needs intermittent retirement care, physical therapy and/or speech therapy, or continues to need occupational therapy. The patient is under my care, and I have initiated the establishment of the plan of care. The patient will be followed by a physician who will periodically review the plan of care. Time Spent With Patient Time: Total time managing care of this patient today ____ minutes.
--- NOTE | 2025-03-04 11:08 | MHC.CM.PN ---
Addendum entered by Rut Rowell RN 03/04/25 11:47: PT NOW AGREEABLE TO TRANSFER TO [facility] FOR CARDIAC CATH AND TESTING. Addendum entered by Rut Rowell RN 03/04/25 11:15: PER HOSPITALIST DC PENDING SURGICAL CONSULT Original Note: IMM 03/04/25, CM MET W/PT TO DISCUSS DISPO, PT CONT'S TO DECLINE TXFR TO [facility] FOR CARDIAC CATH AND TESTING, P.T. REC'S STR HOWEVER PT ALSO DECLINING STR, PT AGREEABLE TO NA FOR HOME PT, PT'S S.O. AT BEDSIDE AND WILL TRANSPORT PT HOME.
--- NOTE | 2025-03-04 11:34 | HO.WOUND ---
Wound Consult: Initial 69yr old?[place] [facility] [place] - See progress notes and H&P for detailed history.? Wound consult placed for Right Elbow.? Patient agreeable to assessment and photo documentation.? Right Elbow Etiology: Suspected Abscess?? Measurements: 1.5cm x 1cm x 0.2cm Wound Bed: red moist slough Drainage / Odor: Moderate purulent drainage with fluctuant center Edges: ?iregular Shante wound: REd warm erythema, Induration, and Fluctuance noted Pain: denies pain Goals of Treatment: ? Defer to provider to systemic treatment and for surgical assessment however currently draining on its own Durafiber for antimicrobial properties Recommendations: 1. Turn and Reposition every 2 hours and as needed for patient comfort.? Use pillows or wedges to support off loading positions. 2. Off Load all bony prominences with use of pillows and heel boots if needed.? Apply Preventative foams where needed. ? 3. Monitor for incontinence and moisture control, use barrier creams when needed for prevention and treatment. 4. Provide adequate and supplemental nutrition.? 5. Order or Continue low air loss mattress. 6. When applicable maintain blood glucose levels per Providers order. Right Elbow - Cleanse with NS moist gauze, pat dry. Apply skin prep. Cover wound bed with Durafiber AG, ABD pad and gauze wrap. Change daily while inpatient. Re-consult wound care Nurse for wound deterioration or wound changes.
--- NOTE | 2025-03-04 13:16 | PM.CNGS ---
History of Present Illness Consult details Consult date: 03/04/25 <Sofia Joe PA-C - Last Filed: 03/04/25 13:57> Reason for consult: other (right forearm wound ) <OC Mandujano Last Filed: 03/04/25 13:57> Narrative: Alan Nava is a 69-year-old male with PMH significant for PARRIS on CPAP, chronic hypoxemic respiratory failure due to COPD, pulmonary hypertension, atrial fibrillation on eliquis, hypertension who initially presented with worsening shortness of breath. He was admitted to the hospitalist service for acute decompensated congestive heart failure. He was found to have EF 60-65% with severe aortic stenosis and severe pulmonary hypertension on echocardiogram. Seen and evaluated by Cardiology with recommendation for cardiac catheterization as well as TAVR assessment and initially patient refused but now agreeable for transfer to [facility] which is now underway. During his admission he was found to have right forearm swelling and erythema. Soft tissue US showed no drainable fluid collection and R elbow xray unremarkable. He declined antibiotics. General surgery consulted today for right forearm wound. He reports he thinks he initially had a bruise from constantly leaning on that area and the area became itchy and he continually scratched it resulting in the open wound. Denies cony trauma to area, bites. Thinks the wound has been weeping but denies purulent drainage. <Sofia Joe PA-C Last Filed: 03/04/25 13:57> Review of Systems Constitutional: Constitutional: Denies chills and Denies fever(s) <OC Mandujano Last Filed: 03/04/25 13:57> Cardiovascular: Cardiovascular: Denies chest pain <OC Mandujano Last Filed: 03/04/25 13:57> Gastrointestinal: Gastrointestinal: Denies nausea and Denies vomiting <OC Mandujano Last Filed: 03/04/25 13:57> Integumentary/Breasts: Skin/Breast: Reports as per HPI <OC Mandujano Last Filed: 03/04/25 13:57> [facility] Past Medical History Medical History: Medical History Overweight Pulmonary hypertension PARRIS (obstructive sleep apnea) Chronic respiratory failure COPD (chronic obstructive pulmonary disease) Allergy <Sofia Joe PA-C - Last Filed: 03/04/25 13:57> Social History Social History: Social History Household Members: None Housing: Apartment Do you presently have visiting nurse or other home services: Yes (home health aide 2x/week) Patient Tobacco Use Status: Former Tobacco user Tobacco use type: Cigarette e-Cigarette/Vaping Use: Never Used Second Hand Smoke Exposure: No Substance Use Type: Marijuana Advance Directives Date on File: 02/26/24 service: No <Sofia Joe PA-C - Last Filed: 03/04/25 13:57> Meds Allergies/Adverse reactions: Allergies Allergy/AdvReac Type Severity Reaction Status Date / Time codeine AdvReac Severe Dizziness Verified 02/27/25 20:09 poison bashir extract AdvReac Severe Nausea Verified 02/27/25 20:09 <Sofia Joe PA-C - Last Filed: 03/04/25 13:57> Active Medications: Current Medications Acetaminophen (Acetaminophen 325 Mg Tablet) 650 mg PO Q6H PRN PRN Reason: Pain, Mild 1-3,fever,headache Albuterol Sulfate (Albuterol Sulfate 90 Mcg 8 Gm Inhaler) 2 puff INHALE Q6H PRN PRN Reason: Shortness Of Breath Or Wheezing Last Admin: 03/02/25 13:54 Dose: 2 puff Allopurinol (Allopurinol 100 Mg Tablet) 100 mg PO DAILY [facility] Last Admin: 03/04/25 08:31 Dose: 100 mg Apixaban (Apixaban 5 Mg Tablet) 5 mg PO BID [facility] Last Admin: 03/04/25 08:32 Dose: 5 mg Atorvastatin Calcium (Atorvastatin Calcium 40 Mg Tablet) 40 mg PO DAILY [facility] Last Admin: 03/04/25 08:32 Dose: 40 mg Bupropion HCl (Bupropion Hcl Xl 300 Mg Tab.Er.24h) 300 mg PO DAILY [facility] Last Admin: 03/04/25 08:31 Dose: 300 mg Bupropion HCl (Bupropion Hcl Xl 150 Mg Tab.Er.24h) 150 mg PO DAILY [facility] Last Admin: 03/04/25 08:31 Dose: 150 mg Buspirone HCl (Buspirone Hcl 10 Mg Tablet) 30 mg PO BID [facility] Last Admin: 03/04/25 08:32 Dose: 30 mg Calcium Carbonate (Calcium Carbonate 750 Mg Tab.Chew) 750 mg PO Q4H PRN PRN Reason: Heartburn Fluoxetine HCl (Fluoxetine Hcl 20 Mg Capsule) 20 mg PO BID [facility] Last Admin: 03/04/25 08:33 Dose: 20 mg Furosemide (Furosemide 40 Mg/4 Ml Vial) 40 mg IVPUSH BID@0900,1800 [facility]; Protocol Last Admin: 03/04/25 08:30 Dose: 40 mg Magnesium Hydroxide (Milk Of Magnesia 30 Ml Oral.Susp) 30 ml PO DAILY PRN PRN Reason: Constipation Melatonin (Melatonin 3 Mg Tablet) 6 mg PO BEDTIME PRN PRN Reason: Insomnia Multi-Ingred Cream/Lotion/Oil/Oint (Mineral Oil/Petrolatum,White 106 Gm Tube) 1 appl TOPICAL BID [facility]; Protocol Last Admin: 03/04/25 10:50 Dose: 1 appl Nystatin (Nystatin Powder 15 Gm Bottle) 1 appl TOPICAL TID [facility]; Protocol Last Admin: 03/04/25 10:50 Dose: 1 appl Ondansetron HCl (Ondansetron Hcl 4 Mg/2 Ml Vial) 4 mg IVPUSH Q8H PRN PRN Reason: Nausea and Vomiting Sodium Chloride (0.9 % Sodium Chloride Flush 3 Ml Syringe) 3 ml IVFLUSH QSHIFT [facility] Last Admin: 03/04/25 08:26 Dose: 3 ml Spironolactone (Spironolactone 25 Mg Tablet) 25 mg PO DAILY [facility]; Protocol Last Admin: 03/04/25 08:32 Dose: 25 mg Valsartan (Valsartan 160 Mg Tablet) 160 mg PO DAILY [facility] Last Admin: 03/04/25 08:31 Dose: 160 mg <Sofia Joe PA-C - Last Filed: 03/04/25 13:57> Home medications: Home Medications ?Medication ?Instructions ?Recorded ?Confirmed ?Last Taken ?Type CPAP (CPAP Machine/Device) 11/19/23 02/28/25 02/27/25 09:00 History Oxygen Home Use 11/19/23 02/28/25 02/27/25 09:00 History albuterol sulfate 90 mcg/actuation 2 puff inhalation Q6H PRN 11/19/23 02/28/25 Unknown History aerosol inhaler Shortness Of Breath Or Wheezing allopurinol 100 mg tablet 100 mg PO DAILY 11/19/23 02/28/25 02/27/25 09:00 History apixaban 5 mg tablet (Eliquis) 5 mg PO BID 11/19/23 02/28/25 02/27/25 09:00 History atorvastatin 40 mg tablet 40 mg PO DAILY 11/19/23 02/28/25 02/27/25 09:00 History bupropion HCl 200 mg tablet,12 hr 200 mg PO BID 11/19/23 02/28/25 02/27/25 09:00 History sustained-release buspirone 30 mg tablet 30 mg PO BID 11/19/23 02/28/25 02/27/25 09:00 History chlorthalidone 25 mg tablet 25 mg PO DAILY 11/19/23 02/28/25 02/27/25 09:00 History cholecalciferol (vitamin D3) 25 25 mcg PO DAILY 11/19/23 02/28/25 02/27/25 09:00 History mcg (1,000 unit) capsule coenzyme Q10 100 mg tablet 300 mg PO DAILY 11/19/23 02/28/25 02/27/25 09:00 History diltiazem HCl 120 mg 120 mg PO DAILY 11/19/23 02/28/25 02/27/25 09:00 History capsule,extended release 24 hr, controlled (DILT-XR) fluoxetine 20 mg capsule 20 mg PO BID 11/19/23 02/28/25 02/27/25 09:00 History multivitamin 1 tab PO DAILY 11/19/23 02/28/25 02/27/25 09:00 History olmesartan 40 mg tablet 40 mg PO DAILY 11/19/23 02/28/25 02/27/25 09:00 History Donna Joe PA-C - Last Filed: 03/04/25 13:57> Physical Exam Vital Signs: Vital Signs: Last Vital Signs Temp 97.8 F 03/04/25 07:34 Pulse 62 03/04/25 07:34 Resp 19 03/04/25 07:34 BP 136/75 03/04/25 08:32 Pulse Ox 95 03/04/25 07:34 O2 Del Method Nasal Cannula 03/04/25 07:34 O2 Flow Rate 4 03/04/25 07:34 BMI result Body Mass Index 53.2 <Sofia CastanedaVERO larsonCristina Holliday Last Filed: 03/04/25 13:57> Const: General: no acute distress and alert <Sofia CastanedaVERO larsonCristina Holliday Last Filed: 03/04/25 13:57> Nutritional Appearance: obese <Sofia CastanedaRICHARD larsonMo Holliday Last Filed: 03/04/25 13:57> Resp: Effort & Inspection: able to speak in complete sentences, not labored and not tachypneic <Sofia RICHARD JoeMo Holliday Last Filed: 03/04/25 13:57> Extrem: Other: right posterior forearm with open wound distal to olecranon process with some serous drainage and surrounding ecchymosis, fluctuance palpated just distally to wound with surrounding erythema and edema extending proximally and distally <Sofia RICHARD JoeMo Holliday Last Filed: 03/04/25 13:57> Results Labs Result diagrams: 02/28/25 06:40 03/02/25 05:42 <Sofia CastanedaRICHARD larsonMo Keane Filed: 03/04/25 13:57> Labs: All other labs normal. <SofiaRICHARD KramerMo Keane Filed: 03/04/25 13:57> Assessment and Plan (1) Right forearm cellulitis: Status: Acute <Sofia RICHARD JoeMo Keane Filed: 03/04/25 13:57> 69-year-old male with PMH significant for PARRIS on CPAP, chronic hypoxemic respiratory failure due to COPD, pulmonary hypertension, atrial fibrillation on eliquis, hypertension admitted for worsening dyspnea and admitted to the hospitalist service for acute decompensated congestive heart failure found to have EF 60-65% with severe aortic stenosis and severe pulmonary hypertension on echocardiogram. Currently awaiting transfer to [facility] for cardiac catheterization and TAVR assessment. He has an open wound of the right posterior forearm with erythema and edema consistent with cellulitis. There is also an area of fluctuance just distal to the wound. Discussed proceeding with I&D of this collection, possible abscess versus infected hematoma. He is in agreement however has a telehealth visit with his psych provider in a few minutes and is deferring to after that is over. Will return later today and attempt prior to transfer. Recommended initiating abx as well and he is in agreement. <Sofia Joe PA-C - Last Filed: 03/04/25 13:57> 69-year-old male with PMH significant for PARRIS on CPAP, chronic hypoxemic respiratory failure due to COPD, pulmonary hypertension, atrial fibrillation on eliquis, hypertension admitted for worsening dyspnea and admitted to the hospitalist service for acute decompensated congestive heart failure found to have EF 60-65% with severe aortic stenosis and severe pulmonary hypertension on echocardiogram. Currently awaiting transfer to [facility] for cardiac catheterization and TAVR assessment. He has an open wound of the right posterior forearm with erythema and edema consistent with cellulitis. There is also an area of fluctuance just distal to the wound. Discussed proceeding with I&D of this collection, possible abscess versus infected hematoma. He is in agreement however has a telehealth visit with his psych provider in a few minutes and is deferring to after that is over. Will return later today and attempt prior to transfer. Recommended initiating abx as well and he is in agreement. Patient seen and examined. Abscess of the right posterior forearm noted and agree with the above assessment and plan. Agree with incision and drainage of this collection. Discussed the procedure in detail with the patient and he is agreement and consents to the procedure. <Guilherme Carmona MD - Last Filed: 03/04/25 15:08> Procedures Date of Service Date of Service: 03/04/25 <Sofia Joe PA-C - Last Filed: 03/04/25 13:57> 03/04/25 <Guilherme Carmona MD - Last Filed: 03/04/25 15:08>
--- NOTE | 2025-03-04 15:10 | P.PNIM_ITS ---
Subjective Subjective Date of Service: 03/04/25 Interval History: Follow up CHF sob is improving Physical Exam 2 Vital Signs: Vital Signs: Last Vital Signs Temp 97.8 F 03/04/25 07:34 Pulse 62 03/04/25 07:34 Resp 19 03/04/25 07:34 BP 136/75 03/04/25 08:32 Pulse Ox 95 03/04/25 07:34 O2 Del Method Nasal Cannula 03/04/25 07:34 O2 Flow Rate 4 03/04/25 07:34 BMI result Body Mass Index 53.2 Appearing in no acute distress lung sounds are clear to auscultation heart regular rate rhythm, clear S1, S2 positive bowel sounds, abdomen is soft, nontender neuro patient is alert x3, no focal deficits Objective Data Active Medications Acetaminophen (Acetaminophen 325 Mg Tablet) 650 mg PO Q6H PRN PRN Reason: Pain, Mild 1-3,fever,headache Albuterol Sulfate (Albuterol Sulfate 90 Mcg 8 Gm Inhaler) 2 puff INHALE Q6H PRN PRN Reason: Shortness Of Breath Or Wheezing Last Admin: 03/02/25 13:54 Dose: 2 puff Documented By: CAN Allopurinol (Allopurinol 100 Mg Tablet) 100 mg PO DAILY [facility] Last Admin: 03/04/25 08:31 Dose: 100 mg Documented By: LEIGHA Apixaban (Apixaban 5 Mg Tablet) 5 mg PO BID [facility] Last Admin: 03/04/25 08:32 Dose: 5 mg Documented By: LEIGHA Atorvastatin Calcium (Atorvastatin Calcium 40 Mg Tablet) 40 mg PO DAILY [facility] Last Admin: 03/04/25 08:32 Dose: 40 mg Documented By: LEIGHA Bupropion HCl (Bupropion Hcl Xl 300 Mg Tab.Er.24h) 300 mg PO DAILY [facility] Last Admin: 03/04/25 08:31 Dose: 300 mg Documented By: LEIGHA Bupropion HCl (Bupropion Hcl Xl 150 Mg Tab.Er.24h) 150 mg PO DAILY [facility] Last Admin: 03/04/25 08:31 Dose: 150 mg Documented By: LEIGHA Buspirone HCl (Buspirone Hcl 10 Mg Tablet) 30 mg PO BID [facility] Last Admin: 03/04/25 08:32 Dose: 30 mg Documented By: LEIGHA Calcium Carbonate (Calcium Carbonate 750 Mg Tab.Chew) 750 mg PO Q4H PRN PRN Reason: Heartburn Fluoxetine HCl (Fluoxetine Hcl 20 Mg Capsule) 20 mg PO BID [facility] Last Admin: 03/04/25 08:33 Dose: 20 mg Documented By: LEIGHA Furosemide (Furosemide 40 Mg/4 Ml Vial) 40 mg IVPUSH BID@0900,1800 [facility]; Protocol Last Admin: 03/04/25 08:30 Dose: 40 mg Documented By: LEIGHA Magnesium Hydroxide (Milk Of Magnesia 30 Ml Oral.Susp) 30 ml PO DAILY PRN PRN Reason: Constipation Melatonin (Melatonin 3 Mg Tablet) 6 mg PO BEDTIME PRN PRN Reason: Insomnia Multi-Ingred Cream/Lotion/Oil/Oint (Mineral Oil/Petrolatum,White 106 Gm Tube) 1 appl TOPICAL BID [facility]; Protocol Last Admin: 03/04/25 10:50 Dose: 1 appl Documented By: AMILCAR Nystatin (Nystatin Powder 15 Gm Bottle) 1 appl TOPICAL TID [facility]; Protocol Last Admin: 03/04/25 10:50 Dose: 1 appl Documented By: AMILCAR Ondansetron HCl (Ondansetron Hcl 4 Mg/2 Ml Vial) 4 mg IVPUSH Q8H PRN PRN Reason: Nausea and Vomiting Sodium Chloride (0.9 % Sodium Chloride Flush 3 Ml Syringe) 3 ml IVFLUSH QSHIFT [facility] Last Admin: 03/04/25 08:26 Dose: 3 ml Documented By: LEIGHA Spironolactone (Spironolactone 25 Mg Tablet) 25 mg PO DAILY [facility]; Protocol Last Admin: 03/04/25 08:32 Dose: 25 mg Documented By: LEIGHA Valsartan (Valsartan 160 Mg Tablet) 160 mg PO DAILY [facility] Last Admin: 03/04/25 08:31 Dose: 160 mg Documented By: LEIGHA Labs 02/28/25 06:40 03/02/25 05:42 Assessment and Plan (1) Pulmonary hypertension: Status: Acute (2) PARRIS (obstructive sleep apnea): Status: Acute (3) COPD (chronic obstructive pulmonary disease): Status: Acute (4) New onset of congestive heart failure: Status: Acute Plan 69-year-old male with pertinent history of PARRIS on CPAP, chronic hypoxemic respiratory failure due to COPD, pulmonary hypertension, mood disorder, gout, atrial fibrillation on anticoagulation, hypertension who presented to the emergency department for evaluation of dyspnea. Acute decompensated congestive heart failure with preserved EF last echo from 2021 with preserved EF; pulmonary hypertension, right heart dysfunction, moderate Low-salt diet Spironolactone added echo EF 60-65% with severe aortic stenosis and severe pulmonary hypertension IV lasix 40 BID plan to [place] [facility] [place] when bed available Right arm swelling, erythema ?olecranon bursitis non-tender, no warmth; no fever or leukocytosis. has full ROM of elbow soft tissue US with no drainable fluid collection elbow xray unremarkable pt declines antibiotics Hypertension Continue home Arb (changed to diovan inpatient) Hold diltiazem per cardiology Chlorthalidone on hold as spironolactone started Chronic hypoxemic respiratory failure due to COPD Continue home baseline supplemental oxygen 3-6L Continue home inhalers Mood disorder Continue home mood stabilizers Atrial fibrillation Rate controlled Continue Eliquis for anticoagulation Hold diltiazem as per Cardiology recommendation PARRIS Continue CPAP at bedtime Super morbid obesity BMI 58.1 Discussed importance of weight management as this may be contributing to worsening of other comorbidities DVT prophylaxis: Eliquis Full code. Quality Stroke Does the patient have a stroke diagnosis?: No VTE Prior VTE?: No VTE Risk Level:: Medical - moderate - high VTE Device Contraindication: Treatment Not Indicated VTE Drug Contraindication: N/A - Med Ordered
--- NOTE | 2025-03-04 15:11 | PM.PROC ---
Brief Operative Note Date of procedure: 03/04/25 Pre-op diagnosis: right forearm cellulitis Post-op diagnosis: same (hematoma) Procedure: The site of procedure was confirmed by the patient. After assuring informed consent, the skin was prepped with Betadine. 4cc 1% lidocaine local anesthesia was then infiltrated over the central portion of the fluctuance. An incision was made with an 11 blade measuring approximately 1 cm the same location. This was deepened into the subcutaneous tissue. A pocket was identified and with sanguineous fluid evacuated. A culture was obtained. The area was then probed with a snap to ensure any loculations were broken up and the entire collection was drained. The collection extended to the forearm wound proximal. No further fluctuance was appreciated. Pressure was held with sterile gauze until hemostasis ensured. The wound was packed with 1/4in iodoform packing and silver alginate applied to the wound followed by fluffs, abd dressing and kerlix wrap. The patient tolerated the procedure very well. Anesthesia: local Surgeon: Irving Roman Pathology: other (routine culture) Condition: stable Disposition: no change
[2025-03-04] MEDS: Lidocaine HCl 1 % 20 ML VIAL 10 ML INFILTRATI (15:56)
[2025-03-05 02:35] VITALS: BP 110/69; PULSE 75; RESP 18; TEMP 36.1; O2SAT 96
[2025-03-05 07:43] VITALS: BP 119/79; PULSE 63; RESP 18; TEMP 36; O2SAT 95
[2025-03-05] MEDS: Valsartan 160 MG TABLET PO (08:57)
[2025-03-05] MEDS: FLUoxetine HCl 20 MG CAPSULE PO (08:57)
[2025-03-05] MEDS: Apixaban 5 MG TABLET PO (08:58)
[2025-03-05] MEDS: buPROPion HCl XL 300 MG TAB.ER.24H PO (08:58)
[2025-03-05] MEDS: Spironolactone 25 MG TABLET PO (08:58)
[2025-03-05] MEDS: Atorvastatin Calcium 40 MG TABLET PO (08:58)
[2025-03-05] MEDS: allopurinoL 100 MG TABLET PO (08:58)
[2025-03-05] MEDS: busPIRone HCl 10 MG TABLET 30 MG PO (08:58)
[2025-03-05] MEDS: 0.9 % Sodium Chloride Flush 3 ML SYRINGE IVFLUSH (08:58)
[2025-03-05] MEDS: buPROPion HCl XL 150 MG TAB.ER.24H PO (08:58)
[2025-03-05] MEDS: Furosemide 40 MG/4 ML VIAL IVPUSH (08:58)
--- NOTE | 2025-03-05 10:23 | MHC.CM.PN ---
PT DISCHARGING TO [facility] [place] FOR CARDIAC CATH ONCE BED AVAILABLE.
[2025-03-05] MEDS: Nystatin Powder 15 GM BOTTLE 1 APPL TOPICAL (11:19)
[2025-03-05] MEDS: Mineral Oil/Petrolatum,White 106 GM Tube 1 APPL TOPICAL (11:19)
--- NOTE | 2025-03-05 12:49 | PM.PNGS ---
Subjective Subjective Date of Service: 03/05/25 Interval history: Patient doing well, no new complaints. Continues to complain of some itching Physical Exam Vital Signs: Vital Signs: Last Vital Signs Temp 96.8 F 03/05/25 07:43 Pulse 63 03/05/25 07:43 Resp 18 03/05/25 07:43 BP 119/79 03/05/25 07:43 Pulse Ox 95 03/05/25 07:43 O2 Del Method Room Air 03/05/25 07:43 O2 Flow Rate 4 03/04/25 19:53 BMI result Body Mass Index 53.2 Const: General: comfortable and no acute distress Orientation/consciousness: patient oriented x3 Resp: Effort & Inspection: able to speak in complete sentences Skin: Other: Right forearm open wound. 1 cm incision from I&D. no fluid collection noted. erythema and induration surrounding wound. Scant amount of sanguenous discharge Neuro: General: patient oriented x3 Objective Data Active Medications Acetaminophen (Acetaminophen 325 Mg Tablet) 650 mg PO Q6H PRN PRN Reason: Pain, Mild 1-3,fever,headache Albuterol Sulfate (Albuterol Sulfate 90 Mcg 8 Gm Inhaler) 2 puff INHALE Q6H PRN PRN Reason: Shortness Of Breath Or Wheezing Last Admin: 03/02/25 13:54 Dose: 2 puff Documented By: CAN Allopurinol (Allopurinol 100 Mg Tablet) 100 mg PO DAILY [facility] Last Admin: 03/05/25 08:58 Dose: 100 mg Documented By: CORNELIA Apixaban (Apixaban 5 Mg Tablet) 5 mg PO BID [facility] Last Admin: 03/05/25 08:58 Dose: 5 mg Documented By: CORNELIA Atorvastatin Calcium (Atorvastatin Calcium 40 Mg Tablet) 40 mg PO DAILY [facility] Last Admin: 03/05/25 08:58 Dose: 40 mg Documented By: CORNELIA Bupropion HCl (Bupropion Hcl Xl 300 Mg Tab.Er.24h) 300 mg PO DAILY [facility] Last Admin: 03/05/25 08:58 Dose: 300 mg Documented By: CORNELIA Bupropion HCl (Bupropion Hcl Xl 150 Mg Tab.Er.24h) 150 mg PO DAILY [facility] Last Admin: 03/05/25 08:58 Dose: 150 mg Documented By: CORNELIA Buspirone HCl (Buspirone Hcl 10 Mg Tablet) 30 mg PO BID [facility] Last Admin: 03/05/25 08:58 Dose: 30 mg Documented By: CORNELIA Calcium Carbonate (Calcium Carbonate 750 Mg Tab.Chew) 750 mg PO Q4H PRN PRN Reason: Heartburn Fluoxetine HCl (Fluoxetine Hcl 20 Mg Capsule) 20 mg PO BID [facility] Last Admin: 03/05/25 08:57 Dose: 20 mg Documented By: CORNELIA Furosemide (Furosemide 40 Mg/4 Ml Vial) 40 mg IVPUSH BID@0900,1800 [facility]; Protocol Last Admin: 03/05/25 08:58 Dose: 40 mg Documented By: CORNELIA Magnesium Hydroxide (Milk Of Magnesia 30 Ml Oral.Susp) 30 ml PO DAILY PRN PRN Reason: Constipation Melatonin (Melatonin 3 Mg Tablet) 6 mg PO BEDTIME PRN PRN Reason: Insomnia Multi-Ingred Cream/Lotion/Oil/Oint (Mineral Oil/Petrolatum,White 106 Gm Tube) 1 appl TOPICAL BID [facility]; Protocol Last Admin: 03/05/25 11:19 Dose: 1 appl Documented By: CORNELIA Nystatin (Nystatin Powder 15 Gm Bottle) 1 appl TOPICAL TID [facility]; Protocol Last Admin: 03/05/25 11:19 Dose: 1 appl Documented By: CORNELIA Ondansetron HCl (Ondansetron Hcl 4 Mg/2 Ml Vial) 4 mg IVPUSH Q8H PRN PRN Reason: Nausea and Vomiting Sodium Chloride (0.9 % Sodium Chloride Flush 3 Ml Syringe) 3 ml IVFLUSH QSHIFT [facility] Last Admin: 03/05/25 08:58 Dose: 3 ml Documented By: CORNELIA Spironolactone (Spironolactone 25 Mg Tablet) 25 mg PO DAILY [facility]; Protocol Last Admin: 03/05/25 08:58 Dose: 25 mg Documented By: CORNELIA Valsartan (Valsartan 160 Mg Tablet) 160 mg PO DAILY [facility] Last Admin: 03/05/25 08:57 Dose: 160 mg Documented By: CORNELIA Labs 02/28/25 06:40 03/02/25 05:42 Microbiology Microbiology Results: Microbiology 03/04/25 15:20 Gram Stain - Final Forearm Right Routine Culture - Preliminary Staphylococcus species Procedures Date of Service Date of Service: 03/05/25 Progress Note: A&P Assessment and plan (1) Right forearm cellulitis: Status: Acute Plan 69-year-old male seen for wound on right forearm with surrounding cellulitis. Dressing and packing were removed and changed today at bedside patient tolerated this well. Wound remains open and 1 cm incision from yesterday's procedure drain small amounts of sanguinous fluid was drained today at the time of dressing change. The area looks improved today no further evidence of fluid collection and less swelling. The wound was dressed with silver alginate covered with gauze and wrapped with Kerlix secured with tape. Would recommend course of antibiotics and daily dressing changes. Time Spent With Patient Time: Total time managing care of this patient today ____ minutes. Quality Stroke Does the patient have a stroke diagnosis?: No VTE Prior VTE?: No VTE Risk Level:: Medical - moderate - high VTE Device Contraindication: Treatment Not Indicated VTE Drug Contraindication: N/A - Med Ordered
--- NOTE | 2025-03-05 13:26 | P.DS_ITS ---
DS: Providers Provider Date of Service: 03/05/25 Date of admission: 02/27/25 23:31 Date of discharge: 03/05/25 Primary care physician: Nidhi Gregorio MD Consults: 02/28/25 07:25 Consult to Cardiology Routine Consulting Provider: [facility] [place] [facility] Reason for consultation: acute chf 03/04/25 05:11 Consult to Wound Care Routine Reason for consultation: R elbow wound 03/04/25 11:14 Consult to General Surgery Routine Consulting Provider: [facility] [place] General Surgeons Reason for consultation: right forearm wound Attending physician on discharge: Cruzito Rose Discharging clinician: Gayathri Hare DS: Diagnosis Discharge Diagnosis (1) Pulmonary hypertension: Status: Acute (2) PARRIS (obstructive sleep apnea): Status: Acute (3) COPD (chronic obstructive pulmonary disease): Status: Acute (4) New onset of congestive heart failure: Status: Acute DS: Summary Hospital Course Hospital Course: History and physical as per admitting provider. This is a 69-year-old male with pertinent history of PARRIS on CPAP, chronic hypoxemic respiratory failure due to COPD, pulmonary hypertension, mood disorder, gout, atrial fibrillation on anticoagulation, hypertension who presents to the emergency department for evaluation of dyspnea. Patient states over the last few days he has been having shortness of breath which is worse with ambulation. Also noticed lower extremity swelling. No change in cough or wheezing. Patient states as he was about to go to bed on the day of presentation, he got severely short of breath which was not relieved with the home inhalers. Patient was put on diuretics previously as an outpatient but has no history of CHF that he knows of. Does use CPAP at bedtime. No fever, chills, chest pain, palpitations, abdominal pain, changes in urinary or bowel habits. In the emergency department, BNP found to be elevated and imaging with cardiomegaly and pulmonary vascular congestion. Acute decompensated congestive heart failure. Treated with IV Lasix b.i.d and spironolactone added. echo EF 60-65% with severe aortic stenosis and severe pulmonary hypertension. Seen and evaluated by Cardiology with recommendation for cardiac catheterization as well as TAVR assessment. patient will be transferred to [facility] [place] in stable condition Right arm swelling, erythema. non-tender, no warmth; no fever or leukocytosis. has full ROM of elbow, soft tissue US with no drainable fluid collection, elbow xray unremarkable, pt declined antibiotics initially. he was seen by surgery, had I&D of area, likely infected hematomoa. wound culture growing staph species. Will start on doxycycline Hypertension. Continue home Arb, spironolactone started Chronic hypoxemic respiratory failure due to COPD, Continue home baseline supplemental oxygen 3-6L, Continue home inhalers Mood disorder Continue home mood stabilizers Atrial fibrillation Rate controlled .Continued on Eliquis for anticoagulation, diltiazem stopped as per Cardiology recommendation PARRIS Continue CPAP at bedtime Super morbid obesity, BMI 58.1, Discussed importance of weight management as this may be contributing to worsening of other comorbidities Time Attestation Discharge Coordination Time (in mins): 35 Quality: Safe Use of Opioids Does Pt have an Active Cancer Diagnosis on the Problem List?: No Quality: Stroke Does the patient have a stroke diagnosis?: No Physical Exam Vital Signs: Vital Signs: Last Vital Signs Temp 96.8 F 03/05/25 07:43 Pulse 63 03/05/25 07:43 Resp 18 03/05/25 07:43 BP 119/79 03/05/25 07:43 Pulse Ox 95 03/05/25 07:43 O2 Del Method Room Air 03/05/25 07:43 O2 Flow Rate 4 03/04/25 19:53 BMI result Body Mass Index 53.2 Const: General: no acute distress, alert and awake Nutritional Appearance: obese Orientation/consciousness: patient oriented x3 Resp: Effort & Inspection: able to speak in complete sentences Cardio: Rate: regular rate GI: Inspection: Yes Abdominal panniculus present and Yes obesity Palpation (GI): Soft to palpation Skin: Other: right arm erythema, non-tender, no warmth Neuro: General: patient oriented x3, moves all extremities and CN's II-XI intact bilaterally Extrem: Other: b/l lower extremity edema improving DS: Data Data Completed and Pending Labs on day of discharge: Preliminary micro results at discharge 03/04/25 15:20 Routine Culture - Preliminary Forearm Right Staphylococcus species Discharge Plan Discharge Anticipated Discharge Date/Time: 03/04/25 10:33 Patient Disposition: Xfer Acute Care Hospital Discharge Diagnosis: Acute decompensated congestive heart failure Right arm swelling Hypertension Acute on chronic hypoxemic respiratory failure Referrals: Nidhi Gregorio MD [Primary Care Provider] - 1 Week Discharge Medications: New spironolactone 25 mg Tablet 25 mg PO DAILY Qty: 30 0RF Protocol: Hold for SBP< HOLD for SBP < : 90 furosemide [Lasix] 40 mg tablet 40 mg PO DAILY Qty: 30 0RF Continued albuterol sulfate 90 mcg/actuation HFA aerosol inhaler 2 puff inhalation Q6H PRN (Reason: Shortness Of Breath Or Wheezing) allopurinol 100 mg tablet 100 mg PO DAILY atorvastatin 40 mg tablet 40 mg PO DAILY bupropion HCl 200 mg tablet sustained-release 12 hr 200 mg PO BID buspirone 30 mg tablet 30 mg PO BID chlorthalidone 25 mg tablet 25 mg PO DAILY diltiazem HCl [DILT-XR] 120 mg capsule,ext.rel 24h degradable 120 mg PO DAILY Eliquis 5 mg tablet 5 mg PO BID fluoxetine 20 mg capsule 20 mg PO BID olmesartan 40 mg tablet 40 mg PO DAILY cholecalciferol (vitamin D3) 25 mcg (1,000 unit) capsule 25 mcg PO DAILY multivitamin Tablet 1 tab PO DAILY coenzyme Q10 100 mg tablet 300 mg PO DAILY (DME) CPAP Machine/Device Device See Rx Instructions .ROUTE Rx Instructions: As directed (DME) Oxygen Home Use Kit See Rx Instructions .ROUTE Rx Instructions: As directed Discharge Orders: Discharge Order (Routine); Ordered 03/04/25 Ordered By: Georgina Orantes Diet: Advance to usual diet Activity on Discharge: As tolerated Stand Alone Forms: Patient Portal Discharge page Print Language: Russian Care Plan Goals: Transfer to [facility] for cardiac catheterization Continue baseline oxygen of 3-6 L Health Concerns: Acute decompensated congestive heart failure Right arm swelling s/p I&D by general surgery, likely infected hematoma. growing staph sp. started on doxycycline Hypertension Acute on chronic hypoxemic respiratory failure Plan of Treatment: Follow up with primary care provider as needed Take all medications as prescribed Assessment: See discharge summary
[2025-03-05 13:31] VITALS: BP 105/61; PULSE 64; RESP 20; TEMP 36.2; O2SAT 90
== END 2025-03-05 13:42 | disposition short-term general hospital (02) | DRG 291 ==
LOC: HO.ED 20:42 → HO.EDOVER 23:34 → HO.S3 02-28 04:11
PROVIDERS: Admitting Provider Student in an Organized Health Care Education/Training Program; Emergency Provider Emergency Medicine; PCP Family Medicine; Visit Provider Physician Assistant Medical
DX: I11.0 Hypertensive heart disease with heart failure (principal); I50.33 Acute on chronic diastolic (congestive) heart failure; I48.21 Permanent atrial fibrillation; Z68.43 Body mass index [BMI] 50.0-59.9, adult; J96.11 Chronic respiratory failure with hypoxia; L03.113 Cellulitis of right upper limb; E66.01 Morbid (severe) obesity due to excess calories; J44.9 Chronic obstructive pulmonary disease, unspecified; Z71.3 Dietary counseling and surveillance; F39 Unspecified mood [affective] disorder; G47.33 Obstructive sleep apnea (adult) (pediatric); I27.20 Pulmonary hypertension, unspecified; I35.0 Nonrheumatic aortic (valve) stenosis; B95.8 Unspecified staphylococcus as the cause of diseases classified elsewhere; Z20.822 Contact with and (suspected) exposure to COVID-19; Z99.81 Dependence on supplemental oxygen; Z87.891 Personal history of nicotine dependence; Z79.01 Long term (current) use of anticoagulants; Z79.899 Other long term (current) drug therapy
CPT/HCPCS: 0241U; 36415; 71045; 73070; 76882; 80048; 80053; 82803; 83880; 84484; 85025; 87070; 87077; 87186; 87205; 93005; 93306; 94660; 97162; 99285; J1938; J2003; Q9957

== ENCOUNTER → 2025-02-27 20:13 | Outpatient (BNV) | payer MEDICARE, SELFPAY | PROVIDERS: Emergency Provider Emergency Medicine; Visit Provider Radiology Diagnostic Radiology | DX: I51.7 Cardiomegaly (principal); J81.1 Chronic pulmonary edema | CPT/HCPCS: 71045 ==

== ENCOUNTER 2025-02-27 23:31 | Outpatient (BNV) | payer MEDICARE, SELFPAY | END 2025-03-01 12:50 | PROVIDERS: Admitting Provider Student in an Organized Health Care Education/Training Program; Emergency Provider Emergency Medicine; Visit Provider Radiology Diagnostic Radiology | DX: R22.31 Localized swelling, mass and lump, right upper limb (principal) | CPT/HCPCS: 73070 ==

== ENCOUNTER 2025-02-27 23:31 | Outpatient (BNV) | payer MEDICARE, SELFPAY | END 2025-03-02 07:00 | PROVIDERS: Admitting Provider Student in an Organized Health Care Education/Training Program; Emergency Provider Emergency Medicine; Visit Provider Internal Medicine | DX: I35.2 Nonrheumatic aortic (valve) stenosis with insufficiency (principal) | CPT/HCPCS: 93306 ==

== ENCOUNTER → 2025-02-27 23:31 | Outpatient (BNV) | payer MEDICARE, SELFPAY | PROVIDERS: Admitting Provider Student in an Organized Health Care Education/Training Program; Emergency Provider Emergency Medicine; Visit Provider Internal Medicine Cardiovascular Disease | DX: I50.9 Heart failure, unspecified (principal) | CPT/HCPCS: 93010; 99223; 99232 ==

== ENCOUNTER → 2025-02-27 23:31 | Outpatient (BNV) | payer MEDICARE, SELFPAY | PROVIDERS: Admitting Provider Student in an Organized Health Care Education/Training Program; Emergency Provider Emergency Medicine; Visit Provider Student in an Organized Health Care Education/Training Program | DX: I27.20 Pulmonary hypertension, unspecified (principal); G47.33 Obstructive sleep apnea (adult) (pediatric); J41.0 Simple chronic bronchitis; I50.9 Heart failure, unspecified | CPT/HCPCS: 99222; 99232; 99239; 99499; G0180 ==

== ENCOUNTER → 2025-02-27 23:31 | Outpatient (BNV) | payer MEDICARE, SELFPAY | PROVIDERS: Admitting Provider Student in an Organized Health Care Education/Training Program; Emergency Provider Emergency Medicine; PCP Family Medicine; Visit Provider Physician Assistant Surgical | DX: L03.113 Cellulitis of right upper limb (principal) | CPT/HCPCS: 10060; 99024; 99222 ==